=== PATIENT | male | born 1945 | race Caucasian/White ===

== ENCOUNTER → 2020-11-26 13:45 | Outpatient (BNVA) | payer MEDICARE, SELFPAY | PROVIDERS: PCP Family Medicine; Referring Provider Surgery; Visit Provider Surgery | DX: K64.9 Unspecified hemorrhoids (principal); Z20.822 Contact with and (suspected) exposure to COVID-19 | CPT/HCPCS: 87635; 99211 ==

== ENCOUNTER 2020-12-03 08:07 | Day surgery (SDC) | payer MEDICARE, SELFPAY ==
[2020-12-03 08:15] VITALS: BP 174/80; PULSE 58; RESP 18; TEMP 36.3; O2SAT 96
[2020-12-03 08:22] VITALS: BMI 26.4
[2020-12-03] MEDS: Fleet Enema 133 mL Enema PR (08:48)
[2020-12-03] MEDS: sodium chloride 0.9% 1,000 ML 30 ML IV (08:48)
--- NOTE | 2020-12-03 09:09 | ANES.PREANE2 ---
Pre-Anesthetic Assessment Pre-Anesthetic Assessment: Height/Weight: Height 1.85 m Weight 90.718 kg Temp Pulse Resp BP Pulse Ox 97.4 F L 58 L 18 174/80 96 12/03/20 08:15 12/03/20 08:15 12/03/20 08:15 12/03/20 08:15 12/03/20 08:15 Preop Diagnosis: Hemorrhoids Proposed Procedure: Operation Date: 12/03/20 08:40 Proposed Procedures p Exam Under Anesthesia 18167 [id number] k64.9 k62.9(Not Applicable) - Kayden Padilla MD s poss Hemorroidectomy(Not Applicable) - Kayden Padilla MD s poss excision of perianal lesion(Not Applicable) - Kayden Padilla MD Was Beta Radha taken within 24 hours: Yes Was Clonidine taken within 24 hours: N/A Last intake: Intake Last Liquid Date 12/02/20 Last Liquid Time 19:00 Last Solid Date 12/02/20 Last Solid Time 19:00 Social: Social History: No alcohol and No tobacco Exam: Pre-Anes Outpt Exam: alert, oriented x 3, clear to auscultation bilaterally and regular rate & rhythm Airway: Submandibular: WNL Cervical ROM: WNL MP: 2 Additional comments: upper permanent bridge CV/HEM: CV/HEM: HTN GI: GI: GERD Metabolic: Metabolic: DM Neuropsych: Neuropsych: LOCKE Comments: Very OHKAY OWINGEH Anesthetic Plan: ASA status: 3 Anesthesia: Choice Risk of > 500 ml blood loss (7ml/kg in children): No Meds/Allergies Current Medications: Current Medications Generic Name Dose Route Start Last Admin Trade Name Freq PRN Reason Stop Dose Admin Sodium Chloride 1,000 mls @ 30 ml s/hr 12/03/20 08:15 12/03/20 08:48 Sodium Chloride 0.9% IV 12/04/20 08:14 30 mls/hr .Q24H COLLIN Administration PFSH Anesthesia PFSH: Medical History Acquired deafness of both ears Chronic headache GERD (gastroesophageal reflux disease) History of stroke Hypertension Type 2 diabetes mellitus Surgical History (Updated 11/24/20 @ 16:23 by Kayden Padilla MD) H/O umbilical hernia repair History of cholecystectomy History of colonoscopy <10 yrs History of knee surgery left (x4) History of tonsillectomy Family History Brother Cancer Skin Cancer Social History Smoking and tobacco status: never smoked Alcohol intake: never Data Anesthesia Cardiac Studies: No Data to Display
[2020-12-03] MEDS: lidocaine 1% INJ 20 mL INJECTION (10:03)
[2020-12-03 10:15] VITALS: BP 144/69; PULSE 62; RESP 12; TEMP 36.3; O2SAT 99
[2020-12-03 10:20] VITALS: BP 149/77; PULSE 60; RESP 18; O2SAT 99
[2020-12-03 10:25] VITALS: BP 150/83; PULSE 63; RESP 17; TEMP 36.5; O2SAT 95
[2020-12-03 10:31] VITALS: BP 169/80; PULSE 63; RESP 18; O2SAT 94
[2020-12-03 10:57] VITALS: BP 170/77; PULSE 59; RESP 18; O2SAT 92
--- NOTE | 2020-12-03 14:38 | ANE.PACU2 ---
Inpatient post-anesthesia follow up: Airway intact: Yes Vital signs: Temperature 97.7 F Pulse Rate 59 Respiratory Rate 18 Blood Pressure 170/77 Pulse Oximetry 92 Oxygen Delivery Me thod Room Air Oxygen Flow Rate 8 Fraction of Inspir ed Oxygen Hydration adequate: Yes Nausea and vomiting: No Pain level: 1 Mental status: Baseline
== END 2020-12-03 11:35 | disposition home or self-care (01) ==
PROVIDERS: PCP Family Medicine; Visit Provider Surgery
PROC: (CPT 46221; principal; 2020-12-03 08:30)
PROC: (CPT 46221; 2020-12-03 08:30)
PROC: (CPT 46221; 2020-12-03 08:30)
DX: B07.8 Other viral warts (principal); K64.0 First degree hemorrhoids; I10 Essential (primary) hypertension; K21.9 Gastro-esophageal reflux disease without esophagitis; E11.9 Type 2 diabetes mellitus without complications; Z86.73 Personal history of transient ischemic attack (TIA), and cerebral infarction without residual deficits
CPT/HCPCS: 46221; 46922; 88304; J0690; J2704; J3490; J7030

== ENCOUNTER → 2021-03-03 18:00 | Outpatient (BNVA) | payer MEDICARE, SELFPAY | PROVIDERS: PCP Family Medicine; Visit Provider Nurse Practitioner Family | DX: G44.229 Chronic tension-type headache, not intractable; H91.93 Unspecified hearing loss, bilateral; I10 Essential (primary) hypertension; K21.9 Gastro-esophageal reflux disease without esophagitis; E11.65 Type 2 diabetes mellitus with hyperglycemia; Z72.0 Tobacco use; R10.9 Unspecified abdominal pain; G89.29 Other chronic pain | CPT/HCPCS: 80053; 80061; 83036; 83690; 85025 ==

== ENCOUNTER → 2021-07-16 09:18 | Outpatient (BNVA) | payer MEDICARE, SELFPAY | PROVIDERS: PCP Family Medicine; Visit Provider Emergency Medicine | DX: I10 Essential (primary) hypertension (principal); R63.4 Abnormal weight loss; E78.5 Hyperlipidemia, unspecified; E11.9 Type 2 diabetes mellitus without complications; N40.1 Benign prostatic hyperplasia with lower urinary tract symptoms; M51.34 Other intervertebral disc degeneration, thoracic region; M40.294 Other kyphosis, thoracic region | CPT/HCPCS: 71046; 72072; 80053; 80061; 82378; 83036; 84443; 85025; 86301; G0103 ==

== ENCOUNTER 2021-07-26 11:45 | Emergency (ER) | payer MEDICARE, SELFPAY ==
[2021-07-26] VITALS (8 sets, daily range): BP systolic 161–235; BP diastolic 82–113; PULSE 61–74; RESP 16–29; TEMP 36.7; O2SAT 90–98; BMI 26.3
--- NOTE | 2021-07-26 12:23 | XR_ITS ---
WS: [id number] Exam: XR chest 1V portable [id number] Date/Time of Exam: 07/26/2021 12:56 PM Reason For Exam: dyspnea/cough Comparison 07/16/2021. The lungs are fully inflated and clear. Normal cardiomediastinal silhouette. Regional bony elements a re intact. Monitoring leads superimpose the chest. XR/XR chest 1V portable [id number] IMPRESSION: 1. No acute cardiopulmonary process identified.
--- NOTE | 2021-07-26 12:23 | ED_ITS ---
HPI - General Adult General: Chief complaint: General Medical Stated complaint: high bp, back pain Time Seen by Provider: 07/26/21 12:19 Source: patient Mode of arrival: ambulatory History of Present Illness: 76-year-old male presents to the emergency room from his primary care doctor's office there is a concern about dissecting thoracic aneurysm. He has had pain in his back radiating over to his right side for over a month. He is not previously been known to have aneurysm. He has not noticed anything that makes it better or worse he denies any dysuria urgency or frequency. No fever sweats chills cough cold shortness of breath. Patient has intermittent back pain radiating into his right flank. Onset (ago): month(s) Location: chest Radiation: back Severity: severe Quality: sharp Pain Consistency: intermittent Relieving factors: none Exacerbating factors: none Associated symptoms: Reports chest pain; Deny confusion, cough, diaphoresis, decreased appetite, dyspnea, fevers/chills, headache(s), malaise, nausea, rash, palpitations, seizures, short of breath, syn cope, vomiting or weakness Treatments prior to arrival: none Review of Systems Const: Denies: malaise or diaphoresis ENMT: Denies: throat pain, ear or mastoid pain, nasal discharge or nasal congestion Card: Reports: chest pain; Denies: palpitations or syncope Resp: Denies: dyspnea GI: Denies: nausea or vomiting : Denies: flank pain, dysuria, urinary frequency or urinary urgency Skin/Breast: Denies: rash Neuro: Denies: headache(s) or confusion [facility] ED PFSH: Medical History Acquired deafness of both ears Acute thoracic back pain BPH loc w urin obs/LUTS Chronic headache Dyslipidemia GERD (gastroesophageal reflux disease) History of stroke Hypertension Type 2 diabetes mellitus Weight loss, non-intentional Surgical History H/O umbilical hernia repair History of cholecystectomy History of colonoscopy <10 yrs History of knee surgery left (x4) History of tonsillectomy Family History Brother Cancer Skin Cancer Social History (Reviewed 07/27/21 @ 06:36 by ANH Berrios Smoking and tobacco status: never smoked Alcohol intake: never Physical Exam Const: GENERAL APPEARANCE: cooperative and comfortable ORIENTATION/CONSCIOUSNESS: Yes awake, Yes oriented to person, Yes oriented to place and Yes oriented to time HENMT: COMMON NORMALS: normocephalic, atraumatic and hearing grossly normal bilaterally HEAD & SCALP: normocephalic and atraumatic Neck/C-Spine: COMMON NORMALS: no JVD Resp: COMMON NORMALS: normal respiratory effort, No retractions, No use of accessory muscles and clear to auscultation bilaterally AUSCULTATION: clear to auscultation bilaterally Cardio: COMMON NORMALS: no JVD, regular rate, regular rhythm and No murmurs present (Cardio) RATE: regular rate RHYTHM: regular rhythm GI: COMMON NORMALS: Soft to palpation and No hepatosplenomegaly present AUSCULTATION: Yes normoactive bowel sounds PALPATION: Yes Soft to palpation, No Tenderness to palpation present (GI), No Guarding due to palpation present ( GI) and Yes No hepatosplenomegaly present Extremity: COMMON NORMALS: normal to inspection, capillary refill normal, no clubbing, cyanosis or edema, no calf tenderness and no pedal edema Neuro: SENSORIUM/ORIENTATION: Yes oriented to person, Yes oriented to place and Yes oriented to time Skin: COMMON NORMALS: no rashes or lesions noted GENERAL SKIN EXAM: no rashes or lesions noted Course Vital Signs: Vital signs: Vital Signs Temperature 98.0 F 07/26/21 12:07 Pulse Rate 66 07/26/21 16:01 Respiratory Rate 16 07/26/21 15:30 Blood Pressure 175/84 07/26/21 16:01 Pulse Oximetry 90 07/26/21 16:01 [facility] - General Adult Medical Decision Making No dissecting aneurysm on imaging. There is no sign of compression fracture or bony abnormality either. Pain is improved after pain medications discussed with his primary care. Dr. Martin will be sending in pain medication for the patient we will discharge him home follow-up for further outpatient work-up. Also noted he has some significant accelerated hypertension is improved with treatment given here we will increase his lisinopril to 10 mg twice daily and he needs to recheck with his primary care doctor tomorrow continue all his other medications. Were also going to have case management [facility] Lab Data : 07/26/21 13:27 07/26/21 13:27 Radiology Impressions Chest X-Ray 07/26/21 12:23 IMPRESSION: 1. No acute cardiopulmonary process identified. Chest CTA 07/26/21 13:22 IMPRESSION: 1. No thoracic aortic aneurysm or dissection. 2. Atherosclerotic changes throughout the thoracic aorta. 3. No pneumonia. 4. Status post cholecystectomy and pneumobilia. Laboratory Results WBC 7.2 10^3/uL (4.0-10.0) 07/26/21 13:27 RBC 3.85 10^6/uL (4.1-5.3) L 07/26/21 13:27 Hgb 10.9 g/dL (11.7-16.6) L 07/26/21 13:27 Hct 33.6 % (42.0-52.0) L 07/26/21 13:27 MCV 87.3 fl (80-94) 07/26/21 13:27 MCH 28.3 pg (28.0-34.0) 07/26/21 13:27 MCHC 32.4 g/dL (30.0-36.0) 07/26/21 13:27 RDW 13.2 % (12.1-15.1) 07/26/21 13:27 Plt Count 169 10^3/cmm (130-400) 07/26/21 13:27 MPV 10.0 fL (7.4-10.4) 07/26/21 13:27 Neut % (Auto) 58.2 % 07/26/21 13:27 Lymph % (Auto) 28.2 % 07/26/21 13:27 [place] % (Auto) 7.9 % 07/26/21 13:27 Eos % (Auto) 5.0 % 07/26/21 13:27 Baso % (Auto) 0.4 % 07/26/21 13:27 Neut # (Auto) 4.17 10^3/uL (1.8-7.7) 07/26/21 13:27 Lymph # (Auto) 2.0 10^3/uL (0.8-4.8) 07/26/21 13:27 [place] # (Auto) 0.6 10^3/uL (0.2-0.9) 07/26/21 13:27 Eos # (Auto) 0.4 10^3/uL (0.0-0.8) 07/26/21 13:27 Baso # (Auto) 0.0 10^3/uL (0.0-0.1) 07/26/21 13:27 Nucleated RBC % (auto) 0 % 07/26/21 13:27 Nucleated RBCs # 0.0 /100WBC 07/26/21 13:27 Sodium 140 mmol/L (136-145) 07/26/21 13:27 Potassium 4.6 mmol/L (3.5-5.1) 07/26/21 13:27 Chloride 107 mmol/L (98-107) 07/26/21 13:27 Carbon Dioxide 22 mmol/L (22-29) 07/26/21 13:27 Anion Gap 15.6 (5-19) 07/26/21 13:27 BUN 26 mg/dL (8-23) H 07/26/21 13:27 Creatinine 1.5 mg/dL (0.7-1.2) H 07/26/21 13:27 GFR Calculation Not Reportable 07/26/21 13:27 Glucose 87 mg/dL (65-115) 07/26/21 13:27 Calculated Osmolality 294 mOsm/kg (285-295) 07/26/21 13:27 Calcium 8.9 mg/dL (8.5-10.5) 07/26/21 13:27 Total Bilirubin 0.2 mg/dL (0.15-1.2) 07/26/21 13:27 AST 8 U/L (0-40) 07/26/21 13:27 ALT < 5 U/L (0-41) 07/26/21 13:27 Alkaline Phosphatase 57 IU/L (40-130) 07/26/21 13:27 Troponin T Baseline 21 ng/L (0-15) H 07/26/21 13:27 Troponin T 120 Minute 18.22 ng/L (0-15) H 07/26/21 16:08 Delta Troponin T -2.78 ABS# (0-10) L 07/26/21 16:08 Total Protein 5.8 g/dL (6.6-8.7) L 07/26/21 13:27 Albumin 3.9 g/dL (3.5-5.2) 07/26/21 13:27 Globulin 1.9 g/dL (1.3-4.6) 07/26/21 13:27 Discharge Plan Discharge Patient Disposition: Home Clinical Impression: Atypical chest pain, Hypertension Condition: Stable Prescriptions: New lisinopril 10 mg tablet 10 mg PO BID Qty: 60 0RF Discontinued lisinopril 5 mg tablet 5 mg PO DAILY 90 Days Qty: 90 1RF No Action omega-3 fatty acids [Fish Oil Concentrate] 1,000 mg capsule 1,000 mg PO DAILY 0RF amitriptyline 50 mg tablet 100 mg PO DAILY 90 Days Qty: 180 1RF metformin 1,000 mg tablet 1,000 mg PO BID 90 Days Qty: 180 1RF multivitamin Tablet 1 tab PO DAILY 0RF CoQ-10 100 mg Capsule 100 mg PO DAILY 0RF lysine 1 cap PO DAILY 0RF methocarbamol 500 mg tablet 500 mg PO TID 0RF omeprazole 40 mg capsule,delayed release(DR/EC) 40 mg PO DAILY 0RF amlodipine 10 mg tablet 10 mg PO DAILY 0RF atenolol 50 mg tablet 50 mg PO BID 0RF Discharge Orders: Discharge ED (Routine); Ordered 07/26/21 Ordered By: Wellington Martines Referrals: Ina Martin MD [Primary Care Provider] - Discharge Diet: Usual diet Discharge Activity: Limit activity as instructed Patient Instructions: Opioid Safety Activity Restrictions/Additional Instructions: This management make arrangements for you to have a Lexiscan sestamibi stress test follow-up with your primary care doctor within the week to recheck blood pressure Coding Level of Care Code ED Associate Designer for Chg Fwd Exam Comprehensive
--- NOTE | 2021-07-26 12:53 | PC.PHAR ---
pts family verified the pts medications-notes are made in the pharmacy comments
[2021-07-26] MEDS: hyDRALAzine 20 mg/mL INJ 1 mL IVP (13:09)
[2021-07-26] MEDS: lisinopril 20 mg Tablet PO (13:09)
--- NOTE | 2021-07-26 13:22 | CT_ITS ---
WS: [id number] CTA THORACIC AORTA WITH AND WITHOUT CONTRAST. HISTORY: Back pain, possible thoracic aneurysm. TECHNIQUE: CT imaging of the thorax is performed with and without contrast. After noncontrast imaging is performed, CT angiogram is performed during injection of Omnipaque 300; 95 mL IV.. Sagittal and c oronal reconstructions, sagittal and coronal MIP imaging is submitted. All CT scans at [facility] use at least one of these dose optimization techniques: automated exposure control; mA and/or kV adjustment per patient size (includes targeted exams where dose is matched to clinical indication); or iterative reconstruction. DLP: 2241.64 mGy.cm COMPARISON: None available. Moderate atherosclerotic changes within the thoracic aorta. Maximum diameter of the ascending aorta i s 3.9 cm. Descending aorta is 3.1 cm at the level of the arnold. There are scattered calcification th roughout the thoracic aorta and involving the proximal great vessels. No dissection or aneurysm. Pulm onary artery size is normal. No central filling defects. Heart is slightly enlarged. No pericardial o r pleural effusions. Mild dependent changes at the lung bases with motion artifact. Indeterminate 3 m m nodule central RIGHT lung. No mass. No mediastinal or hilar adenopathy. Negative esophagus. Small h iatal hernia. Pneumobilia is evident. Prior cholecystectomy. There is a small amount of air also present within the pancreatic duct. Incompletely visualized kidneys. Small cyst upper pole RIGHT kidney. Nonobstructing 6 mm calcification upper pole RIGHT kidney. Cortical thinning bilaterally. No free air. Increase in thoracic kyphosis. Advanced degenerative changes throughout the thoracic spine. No osteob lastic or osteolytic bone disease. CT/CT angio chest [id number] IMPRESSION: 1. No thoracic aortic aneurysm or dissection. 2. Atherosclerotic changes throughout the thoracic aorta. 3. No pneumonia. 4. Status post cholecystectomy and pneumobilia.
[2021-07-26 13:33] LABS: Basophils % 0.4 %; Eosinophils # 0.4 10^3/uL (0.0-0.8); Hematocrit 33.6 % (42.0-52.0); Hemoglobin 10.9 g/dL (11.7-16.6); Lymphocytes % 28.2 %; Mean Corpuscular HGB Conc 32.4 g/dL (30.0-36.0); Mean Corpuscular Hemoglobin 28.3 pg (28.0-34.0); Mean Corpuscular Volume 87.3 fl (80-94); Monocytes # 0.6 10^3/uL (0.2-0.9); Monocytes % 7.9 %; Neutrophils # 4.17 10^3/uL (1.8-7.7); Neutrophils % 58.2 %; Nucleated Red Blood Cells % 0 %; Platelet Count 169 10^3/cmm (130-400); Red Blood Count 3.85 10^6/uL (4.1-5.3); Red Cell Distribution Width 13.2 % (12.1-15.1); White Blood Count 7.2 10^3/uL (4.0-10.0)
[2021-07-26] MEDS: LORazepam 2 mg Tablet PO (13:40)
--- NOTE | 2021-07-26 13:43 | PC.NURSE ---
PATIENT BECAME TACHYPNEIC WITH RESPIRATIONS AROUND 50. PROVIDER NOTIFIED. PATIENT GIVEN 2 MG PO ATIVAN.
[2021-07-26] MEDS: morphine 4 mg/mL SDV 1 mL IVP (13:54)
[2021-07-26 13:57] LABS: Alanine Aminotransferase < 5 U/L (0-41); Albumin Level 3.9 g/dL (3.5-5.2); Alkaline Phosphatase 57 IU/L (40-130); Anion Gap 15.6 (5-19); Aspartate Amino Transferase 8 U/L (0-40); Blood Urea Nitrogen 26 mg/dL (8-23); Calcium 8.9 mg/dL (8.5-10.5); Carbon Dioxide 22 mmol/L (22-29); Chloride 107 mmol/L (98-107); Globulin 1.9 g/dL (1.3-4.6); Glucose 87 mg/dL (65-115); Osmolality Calculated 294 mOsm/kg (285-295); Potassium 4.6 mmol/L (3.5-5.1); Sodium 140 mmol/L (136-145); Total Bilirubin 0.2 mg/dL (0.15-1.2); Total Protein 5.8 g/dL (6.6-8.7)
[2021-07-26] MEDS: ondansetron 2 mg/ML SDV 2 mL 4 MG IVP (13:57)
[2021-07-26 13:58] LABS: Troponin(5th) Baseline 21 ng/L (0-15)
--- NOTE | 2021-07-26 14:23 | ECG_ITS ---
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 Measurements Intervals [place] Rate: 70 P: 80 IA: 198 QRS: 89 QRSD: 111 T: 42 QT: 416 QTc: 450 Interpretive Statements SINUS RHYTHM POSSIBLE INFERIOR MYOCARDIAL INFARCTION , PROBABLY OLD [30 ms Q WAVE IN II/aVF] Compared to ECG 07/26/2021 12:44:17 No significant changes Electronically Signed On 07-26-2021 22:21:15 PULLEY WORKER by Abram Stewart M.D. [id number]
[2021-07-26] MEDS: iodixanol 320 mg/mL 100mL Btl IV (14:51)
[2021-07-26 16:32] LABS: Troponin 5 2HR 18.22 ng/L (0-15)
[2021-07-26 16:36] LABS: Troponin 5 2HR Delta -2.78 ABS# (0-10)
--- NOTE | 2021-07-26 18:23 | ECG_ITS ---
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 Measurements Intervals [place] Rate: 65 P: 65 [place]: 189 QRS: 95 QRSD: 122 T: 54 QT: 425 QTc: 443 Interpretive Statements SINUS RHYTHM BORDERLINE RIGHT AXIS DEVIATION [QRS AXIS > 90] LATERAL MYOCARDIAL INFARCTION , PROBABLY OLD [40+ ms Q WAVE AND/OR ST/T ABNORMALITY IN I/aVL/V5/V6] No previous ECG available for comparison Electronically Signed On 07-26-2021 22:21:50 NUCLEAR DESIGN ENGINEER by Abarm Stewart M.D. [id number]
--- NOTE | 2021-07-27 10:10 | DCPLANNER ---
Addendum entered by Love Multani 09/23/21 07:42: Patent had a stress test scheduled for 09.17.21 - this has been rescheduled. Addendum entered by Love Multani 08/27/21 14:16: Patient has an outpatient stress test scheduled for Friday, September 17, 2021 at 9:15. Centralized scheduling will call patient with appointment information. Original Note: manager employee benefits had message to schedule an outpatient stress test for patient. manager employee benefits faxed signed order to centralized scheduling, who will call patient with appointment information.
== END 2021-07-26 16:52 | disposition home or self-care (01) ==
PROVIDERS: Emergency Provider Family Medicine; PCP Family Medicine
DX: R07.89 Other chest pain (principal); I10 Essential (primary) hypertension; Z79.84 Long term (current) use of oral hypoglycemic drugs; E78.5 Hyperlipidemia, unspecified; Z86.73 Personal history of transient ischemic attack (TIA), and cerebral infarction without residual deficits; E11.9 Type 2 diabetes mellitus without complications
CPT/HCPCS: 36415; 71045; 71275; 80053; 84484; 85025; 93005; 96374; 96375; 99284; J0360; J2270; J2405; Q9967

== ENCOUNTER 2023-07-06 01:28 | Inpatient (IN) | payer MEDICARE, SELFPAY ==
[2023-07-06] VITALS (49 sets, daily range): BP systolic 108–200; BP diastolic 61–113; PULSE 30–114; RESP 0–27; TEMP 36.4–36.6; O2SAT 84–99; BMI 26.4; BMI 25.3
--- NOTE | 2023-07-06 01:41 | W.ED.GENADLT ---
HPI - General Adult General: Chief complaint: Syncope Stated complaint: bradycardia Time Seen by Provider: 07/06/23 01:38 History of Present Illness: Patient brought to ER by EMS with complaints of bradycardia down in the 30s with significant 3 and 4-second pauses frequently. Talking to patient's he has been having these off and on for some time but having them multiple times today. Per patient's he does not have any cardiac history at all. He has had an old stroke and does have dementia. Patient is being paced at 80 bpm and 80 mA. EMS gave him 5 mg of Versed. And 1 mg atropine Review of Systems General: Reports: ROS unobtainable due to medical condition PFSH ED PFSH: Medical History Acute thoracic back pain Dyslipidemia BPH loc w urin obs/LUTS Weight loss, non-intentional Acquired deafness of both ears History of stroke GERD (gastroesophageal reflux disease) Chronic headache Type 2 diabetes mellitus Hypertension Surgical History History of colonoscopy <10 yrs History of knee surgery left (x4) History of tonsillectomy H/O umbilical hernia repair History of cholecystectomy Family History Brother Cancer Skin Cancer Social History Smoking and tobacco/nicotine status: never used tobacco/nicotine Alcohol intake: never Substance/Drug Use: never Physical Exam Narrative: EXAM NARRATIVE: Patient is sedated secondary to Versed. Eye: COMMON NORMALS: Equal, round and reactive pupils present, EOMs intact bilaterally, conjunctivae normal and no scleral icterus CONJUNCTIVA: Yes conjunctivae normal PUPIL: Yes Equal, round and reactive pupils present Neck/C-Spine: COMMON NORMALS: no JVD Chest: COMMONS NORMALS: normal inspection of the chest and normal palpation of entire chest wall Resp: COMMON NORMALS: normal respiratory effort, No retractions, No use of accessory muscles and clear to auscultation bilaterally AUSCULTATION: clear to auscultation bilaterally Cardio: COMMON NORMALS: no JVD, regular rate, regular rhythm, S1 normal heart sound present, S2 normal heart sound present, No gallops present (Cardio), No murmurs present (Cardio) and No rub (Cardio) RATE: regular rate RHYTHM: regular rhythm HEART SOUNDS: S1 normal heart sound present and S2 normal heart sound present OTHER: Being externally paced at 80 bpm GI: COMMON NORMALS: Normal to inspection, nondistended, normoactive bowel sounds present, Soft to palpation, non-tender, No hepatosplenomegaly present and no masses PALPATION: Yes Soft to palpation and Yes No hepatosplenomegaly present Course Vital Signs: Vital signs: Vital Signs Temperature 97.5 F L 07/06/23 01:29 Pulse Rate 80 07/06/23 02:50 Respiratory Rate 2 L 07/06/23 02:30 Blood Pressure 145/63 07/06/23 02:50 Pulse Oximetry 98 07/06/23 02:50 Oxygen Delivery Me thod Nasal Cannula 07/06/23 01:46 Oxygen Flow Rate 4 07/06/23 01:46 MDM - General Adult Medical Decision Making Patient was brought in being paced at 80 beats a minute. Lab work was obtained which is pending. Dr. Kerr was consulted. EKG was obtained while patient was not being paced. Patient did drop all way down to the 30s, EKG caught the patient at 54 beats a minute with sinus bradycardia with a second-degree type II Mobitz block. Dr. Kerr was called again and said patient needs pacemaker and he will call the Data Support Analyst. Dr. Ward was consulted and agreed to place the patient in ICU after Dr. Kerr was done. Differential Diagnosis Significant bradycardia with pauses Medical Records I reviewed the patient's medical records. Lab Data I reviewed the patient's lab results. 07/06/23 01:47 07/06/23 01:47 Laboratory Results WBC 8.48 10^3/uL (3.29-11.43) 07/06/23 01:47 RBC 3.59 10^6/uL (3.85-5.65) L 07/06/23 01:47 Hgb 11.10 g/dL (11.27-16.99) L 07/06/23 01:47 Hct 33.7 % (37-53) L 07/06/23 01:47 MCV 93.9 fl (82-101) 07/06/23 01:47 MCH 30.9 pg (27-33) 07/06/23 01:47 MCHC 32.9 g/dL (30-55) 07/06/23 01:47 RDW 13.5 % (12.1-15.1) 07/06/23 01:47 Plt Count 145 10^3/cmm (157-399) L 07/06/23 01:47 MPV 10.0 fL (7.4-10.4) 07/06/23 01:47 Neut % (Auto) 75.4 % 07/06/23 01:47 Lymph % (Auto) 14.2 % 07/06/23 01:47 [place] % (Auto) 5.8 % 07/06/23 01:47 Eos % (Auto) 3.7 % 07/06/23 01:47 Baso % (Auto) 0.4 % 07/06/23 01:47 Neut # (Auto) 6.41 10^3/uL (1.8-7.7) 07/06/23 01:47 Lymph # (Auto) 1.2 10^3/uL (0.8-4.8) 07/06/23 01:47 [place] # (Auto) 0.5 10^3/uL (0.2-0.9) 07/06/23 01:47 Eos # (Auto) 0.3 10^3/uL (0.0-0.8) 07/06/23 01:47 Baso # (Auto) 0.0 10^3/uL (0.0-0.1) 07/06/23 01:47 Nucleated RBC % (auto) 0 % 07/06/23 01:47 Nucleated RBCs # 0.0 /100WBC 07/06/23 01:47 PT 14.70 SECONDS (12.1-14.9) 07/06/23 01:47 INR 1.11 (0.8-1.2) 07/06/23 01:47 Sodium 143 mmol/L (136-145) 07/06/23 01:47 Potassium 4.6 mmol/L (3.5-5.1) 07/06/23 01:47 Chloride 108 mmol/L (98-107) H 07/06/23 01:47 Carbon Dioxide 22 mmol/L (22-29) 07/06/23 01:47 Anion Gap 17.6 (5-19) 07/06/23 01:47 BUN 37 mg/dL (8-23) H 07/06/23 01:47 Creatinine 2.0 mg/dL (0.7-1.2) H 07/06/23 01:47 GFR Calculation Not Reportable 07/06/23 01:47 Glucose 130 mg/dL (65-115) H 07/06/23 01:47 Calculated Osmolality 306 mOsm/kg (285-295) H 07/06/23 01:47 Calcium 9.0 mg/dL (8.5-10.5) 07/06/23 01:47 Magnesium 1.7 mg/dL (1.7-2.3) 07/06/23 01:47 Total Bilirubin 0.2 mg/dL (0.15-1.2) 07/06/23 01:47 AST 12 U/L (0-40) 07/06/23 01:47 ALT 8 U/L (0-41) 07/06/23 01:47 Alkaline Phosphatase 60 U/L (40-130) 07/06/23 01:47 Troponin T Baseline 32 ng/L (0-15) H 07/06/23 01:47 Total Protein 5.8 g/dL (6.6-8.7) L 07/06/23 01:47 Albumin 3.7 g/dL (3.5-5.2) 07/06/23 01:47 Globulin 2.1 g/dL (1.3-4.6) 07/06/23 01:47 TSH 4.10 uIU/mL (0.27-4.20) 07/06/23 01:47 All radiology interpretation(s) finalized by discharge EKG Data EKG 1: I personally reviewed and interpreted this EKG as follows: EKG interpretation date: 07/06/23 EKG interpretation time: 01:49 Prior EKG tracings: available for review Interpretation: EKG showed ventricular rate 54 beats minute, QRS duration 114, QTc of 412, sinus bradycardia with second-degree AV block type II, Critical Care Time Critical Care Time: Critical Care Time: Yes Total Critical Care Time: 60 Attestation: The patient was emergently evaluated this patient's presentation and case had a high probability of a clinically significant, sudden, or life-threatening deterioration of the patient's initial critical presentation or condition which required my full and direct attention, intervention and personal management. Discharge Plan Discharge Patient Disposition: Admitted As Inpatient Clinical Impression: Mobitz type II block Syncope Qualifiers: Syncope type: unspecified Qualified Code(s): R55 - Syncope and collapse Condition: Stable Coding Level of Care Code ED Database Administrator for Shayne Cowart
[2023-07-06] MEDS: fentaNYL 50 mcg/mL INJ 2mL 100 MCG IVP (01:43)
[2023-07-06] MEDS: midazolam 1 mg/mL INJ 2 mL 2 MG IVP (01:45)
[2023-07-06 01:51] LABS: Basophils % 0.4 %; Eosinophils # 0.3 10^3/uL (0.0-0.8); Eosinophils % 3.7 %; Hematocrit 33.7 % (37-53); Lymphocytes # 1.2 10^3/uL (0.8-4.8); Lymphocytes % 14.2 %; Mean Corpuscular HGB Conc 32.9 g/dL (30-55); Mean Corpuscular Hemoglobin 30.9 pg (27-33); Mean Corpuscular Volume 93.9 fl (82-101); Monocytes # 0.5 10^3/uL (0.2-0.9); Monocytes % 5.8 %; Neutrophils # 6.41 10^3/uL (1.8-7.7); Neutrophils % 75.4 %; Nucleated Red Blood Cells % 0 %; Platelet Count 145 10^3/cmm (157-399); Red Blood Count 3.59 10^6/uL (3.85-5.65); Red Cell Distribution Width 13.5 % (12.1-15.1); White Blood Count 8.48 10^3/uL (3.29-11.43)
[2023-07-06 02:02] LABS: INR 1.11 (0.8-1.2)
[2023-07-06 02:11] LABS: Alanine Aminotransferase 8 U/L (0-41); Albumin Level 3.7 g/dL (3.5-5.2); Alkaline Phosphatase 60 U/L (40-130); Anion Gap 17.6 (5-19); Aspartate Amino Transferase 12 U/L (0-40); Blood Urea Nitrogen 37 mg/dL (8-23); Carbon Dioxide 22 mmol/L (22-29); Chloride 108 mmol/L (98-107); Globulin 2.1 g/dL (1.3-4.6); Glucose 130 mg/dL (65-115); Magnesium 1.7 mg/dL (1.7-2.3); Osmolality Calculated 306 mOsm/kg (285-295); Potassium 4.6 mmol/L (3.5-5.1); Sodium 143 mmol/L (136-145); Total Bilirubin 0.2 mg/dL (0.15-1.2); Total Protein 5.8 g/dL (6.6-8.7)
[2023-07-06 02:15] LABS: Troponin(5th) Baseline 32 ng/L (0-15)
--- NOTE | 2023-07-06 02:29 | XACV_ITS ---
Exam Room: 2 Ht: 183 cm Wt: 88 kg BSA: 2.13 m2 Gender: Male : 1945 Any Known Allergies: No known allergies Exam Priority: Routine Procedure(s): Procedure Description: Temporary transvenous pacemaker Interventional Findings * INDICATION: 78 year old male with no significant prior cardiac history, history of hypertension and diabetes has presented with multiple episodes of passing out today was found to have a heart rate in 30s with Mobitz type II AV block. * We obtained access in right common femoral vein using micropuncture. Under fluoroscopic guidance pacemaker was inserted and sutured in place. We started pacing at 60 bpm and output of 4 mA. 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 Conclusions 1. S/p successful transvenous pacemaker. Recommendations * Transfer from ICU. Plan for permanent pacemaker placement. Clinical Evaluation EBL: 5mL-10mL Procedural Details Procedure Consent Obtained. Pre-Procedure Time Out. Identified patient by full name and date of as verbalized by the patient/guarantor. Does the consent match the physician's order: N/A Emergent; Informed Consent not obtained due to time critical life threat. Accurate & Complete Informed Consent: N/A Emergent; Informed Consent not obtained due to time critical life threat. Inpatient/Outpatient History & Physical on Chart: N/A Emergent; Informed Consent not obtained due to time critical life threat. If H&P is completed, is and addenduem needed: N/A Emergent; Informed Consent not obtained due to time critical life threat; If yes, is the addendum complete: N/A Emergent; Informed Consent not obtained due to time critical life threat. Visualize and Verify Site with Patient/Guarantor: N/A. Relevant Radiology Images available: N/A Emergent; Informed Consent not obtained due to time critical life threat. The risks, benefits, and alternatives of sedation and/or procedure were discussed by physician. The patient agrees to continue. Procedure started. Correct patient, site and procedure confirmed by cath team. Current diagnosis: Mobitz Type 2, multiple syncopal episodes. PERRLA. 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 Lungs clear x 5 lobes. IV Site on Arrival: 18 gauge in the left anticubital. Oxygen started at 2liters/min via nasal canula. bilateral groins was prepped with chloroprep then draped in the usual sterile fashion. Physician notified. Baseline sample Acquired. HR: 79 BPM. Patient being externally paced. EKG with artifact. Patient's family in the experimental machining lab manager waiting room. Dr. Stewart will update at the completion of the procedure. Equipment: 6F - Femoral. Cardiac Cath Pack. ACIST Manifold Kit Model BT 2000. Heparinized Saline (2 units/mL), 1000 mL bag. Kit, Micropuncture. Physician arrived. Physician scrubbed in. Immediate Pre-Procedure Time Out. Correct Patient: N/A Emergent; Informed Consent not obtained due to time critical life threat; Correct Procedure: N/A Emergent; Informed Consent not obtained due to time critical life threat; Correct Site: N/A Emergent; Informed Consent not obtained due to time critical life threat; Correct Patient Position: N/A Emergent; Informed Consent not obtained due to time critical life threat; Correct Supplies: N/A Emergent; Informed Consent not obtained due to time critical life threat; Dried Flammable Prep: N/A Emergent; Informed Consent not obtained due to time critical life threat; Blood Products Available: N/A Emergent; Informed Consent not obtained due to time critical life threat;. Lidocaine 1% infiltrated to the right groin. Venous access obtained with a micropuncture set. TPM in. External pacemaker off. Rate=60, mA=3, Async. TPM sutured into position with 2-0 silk and sterile 4x4's and Op-site applied over the site. No oozing or signs and symptoms of hematoma noted. Dr. Stewart scrubbed out. PERRLA. 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 No VTE prophylaxis required. Post-op diagnosis: S/P TPM for Mobitz Type 2 and multiple syncopal episodes. Complications: none. Estimated blood loss: 5mL-10mL. Responsiveness - Normal response to verbal stimuli; alert and oriented, PERRLA. Airway - Unaffected, no intervention required; spontaneous ventilation. Circulation: W/N/L, pulses unchanged. Nausea/Vomiting: No. Patient transferred by bed to ICU. Medication's Wasted: Lidocaine 1% = 5 mL. Procedure completed. Vital chart was stopped. Access Site Site: Right Femoral vein Sheath Size: 6 Fr Hemostasis Success: Unsuccessful I, the attending physician, have reviewed and verified all procedure medications. Yes, all medications given per verbal order Report Signatures Finalized by Abram Stewart MD on 07/17/2023 09:45 AM
--- NOTE | 2023-07-06 02:36 | PC.NURSE ---
pt nasopharyngeal airway insertion pt respirations were slowed d/t media marketing director so this nurse placed a 32 naso airway. pt did pull out naso prior to leaving for medical lab technologist at [id number].
--- NOTE | 2023-07-06 02:41 | P.CONIM_ITS ---
Providers/Reason For Consult 2 Consulting Physician/Specialty*: Abram Stewart MD/ Cardiology Reason for Consult*: Mobitz type 2 AV block Requesting Physician: Dr Contreras Attending Physician: Abram Stewart M.D Primary Care Provider: Kem Briggs DO History of Present Illness History of Present Illness Anant Byrne is a 78 year old male with no significant prior cardiac history, history of hypertension and diabetes has presented with multiple episodes of passing out today was found to have a heart rate in 30s with Mobitz type II AV block. Has been not transcutaneously placed at this time. Blood pressure is stable. He has dementia. Review of Systems 2 General: Reports: ROS unobtainable due to medical condition Medications/Allergies Home Medications Medication Instructions Recorded Confirmed Last Taken Type amitriptyline 50 mg tablet 100 mg (2 x 50 mg) PO DAILY 90 03/03/21 08/02/21 Unknown Rx days #180 tabs metformin 1,000 mg tablet 1,000 mg PO BID 90 days #180 tabs 03/03/21 08/02/21 07/26/21 Rx omega-3 fatty acids 1,000 mg 1,000 mg PO DAILY 07/15/21 08/02/21 Unknown History capsule (Fish Oil Concentrate) amlodipine 10 mg tablet 10 mg PO DAILY 07/26/21 08/02/21 07/26/21 History coenzyme Q10 100 mg capsule 100 mg PO DAILY 07/26/21 08/02/21 Unknown History (CoQ-10) lysine 1 cap PO DAILY 07/26/21 08/02/21 Unknown History multivitamin 1 tab PO DAILY 07/26/21 08/02/21 Unknown History omeprazole 40 mg capsule,delayed 40 mg PO DAILY 07/26/21 08/02/21 Unknown History release gabapentin 100 mg capsule 100 mg PO TID 30 days #90 caps 07/27/21 08/02/21 Unknown Rx hydrocodone 5 mg-acetaminophen 325 1 tab PO Q8H PRN pain 7 days #21 07/27/21 08/02/21 Unknown Rx mg tablet tabs DME: Walker #1 ea 08/02/21 08/02/21 Unknown Rx lisinopril 10 mg tablet 10 mg PO BID #60 tabs 08/30/21 Unknown Rx atenolol 50 mg tablet 50 mg PO BID #60 tabs 10/09/21 Unknown Rx Allergies Allergy/AdvReac Type Severity Reaction Status Date / Time No Known Allergies Allergy Verified 08/02/21 10:30 PFSH Acute 2 PFSH: Medical History Acute thoracic back pain Dyslipidemia BPH loc w urin obs/LUTS Weight loss, non-intentional Acquired deafness of both ears History of stroke GERD (gastroesophageal reflux disease) Chronic headache Type 2 diabetes mellitus Hypertension Surgical History History of colonoscopy <10 yrs History of knee surgery left (x4) History of tonsillectomy H/O umbilical hernia repair History of cholecystectomy Family History Brother Cancer Skin Cancer Social History Smoking and tobacco/nicotine status: never used tobacco/nicotine Alcohol intake: never Substance/Drug Use: never Vitals/I&O/Wt Last Vital Signs Temp 97.5 F L 07/06/23 01:29 Pulse 80 07/06/23 02:10 Resp 16 07/06/23 01:29 BP 132/70 07/06/23 02:10 Pulse Ox 96 07/06/23 02:10 O2 Del Method Nasal Cannula 07/06/23 01:46 O2 Flow Rate 4 07/06/23 01:46 Weight last 48 hrs Weight 195 lb Physical Exam 2 Narrative: GENERAL: Patient is confused NECK: No jugular vein distension. [] HEENT: No cyanosis. No icterus. No pallor. [] HEART: Regular S1 and S2. No murmur, rub or gallop. [] LUNGS: Diminished air entry CENTRAL NERVOUS SYSTEM: Grossly nonfocal. [] EXTREMITIES: Lower extremities with no edema bilaterally. Data 07/06/23 01:47 07/06/23 01:47 A&P Assessment and plan (1) Mobitz type II block: (2) Dyslipidemia: (3) Hypertension: (4) Type 2 diabetes mellitus: Qualifiers: Diabetes mellitus longterm insulin use: without longterm use Diabetes mellitus complication status: without complication Qualified Code(s): E11.9 - Type 2 diabetes mellitus without complications (5) Syncope: Qualifiers: Syncope type: unspecified Qualified Code(s): R55 - Syncope and collapse Plan Patient has Mobitz type II AV block. Has multiple episodes of fainting. Needs urgent temporary pacemaker placement. We will proceed with it now. Will need permanent pacemaker as well. Hold all rate limiting medications. ICU monitoring. Thank you for involving us with care of this patient. We will continue to follow. Please call with questions. Consult Attestations 2 Medical Necessity Statement: Care expected to cross 2 midnights. Patient has Mobitz type 2 AV block and needs pacemaker. Coding Level of Care Code Acute Code for [facility] Diagnoses Mobitz type II block I44.1 Dyslipidemia E78.5 Essential hypertension I10 Type 2 diabetes mellitus without complication, without long-term current use of insulin E11.9 Diabetes mellitus long term care administrator insulin use: without longterm use Diabetes mellitus complication status: without complication Syncope R55 Syncope type: unspecified
--- NOTE | 2023-07-06 02:46 | W.PM.OPSUD ---
Surgery/Procedure H&P Update DATE OF PROCEDURE: July 06, 2023 DATE H&P PERFORMED: 07/06/23 H&P UPDATE INFORMATION: I have reviewed H&P completed within last 30 days, I have examined patient prior to procedure and No changes to prior documentation PREOP DIAGNOSIS: Mobitz type 2 AV block/ Syncope PRIMARY INDICATION FOR PROCEDURE: Mobitz type 2 AV block/ Syncope PLANNED PROCEDURE: Temporary pacemaker placement PATIENT REASSESSED PRIOR TO SEDATION, WITH NO CHANGE NOTED: Yes PHYSICAL EXAM: alert, clear to auscultation bilaterally, regular rate & rhythm and operative site marked OTHER PERTINENT EXAM FINDINGS: Confused AIRWAY EVAL/ANESTHESIA PLAN: normal airway, ASA III, Local Anesthesia, Risks, benefits & alternatives of sedation and/or procedure discussed and Patient agrees to continue as planned ADDITIONAL INFORMATION: Moderate sedation
--- NOTE | 2023-07-06 03:06 | P.HP_ITS ---
Providers/Chief Complaint 2 Primary Care Provider: Kem Briggs DO Chief Complaint: bradycardia History of Present Illness Anant Byrne is a 78 year old male with no significant past cardiac history, history of dementia, history of BPH, history of CVA, GERD, type 2 diabetes mellitus, hypertension, who presented to [facility] due to syncope and collapse episodes, according to ER provider having episodes of syncope for some time, today, he had multiple episodes of syncope and collapse,, when EMS arrived, he was bradycardic into the 30s, found to have 3 to 4-second pauses, placed on externally paced 80 bpm 80 mA, ekg obtained while he was not being paid showed sinus bradycardia with Mobitz type II second-degree AV block, Dr. stewart was urgently consulted, for temporary pacemaker placement, patient was examined after temporary pacemaker placement, capturing, he is alert to person, not to place, not to time, encephalopathic, I was able to speak to patient's as per patient's , patient's tells me that patient has dementia, but he can ambulate on his own, he can feed himself, up to a few weeks ago he was driving, he has had some cognitive decline, but it has been stable for the last year, he has been having syncopal episodes for the last few months and refuses to get evaluated, but nothing like this she tells me, those syncopal episodes were intermittent lasting a few seconds, and the syncopal episodes he completely passes out and collapses, and they were occurring several times in the last 24 hours, no recent sickness no recent illness, I discussed CODE STATUS with patient's , patient is a full code Review of Systems 2 Const: Denies: fever(s) Card: Reports: syncope; Denies: chest pain Resp: Denies: dyspnea GI: Denies: abdominal pain Neuro: Reports: dizziness; Denies: headache(s) Medications/Allergies Home Medications Medication Instructions Recorded Confirmed Last Taken Type amitriptyline 50 mg tablet 100 mg (2 x 50 mg) PO DAILY 03/03/21 08/02/21 Unknown Rx days #180 tabs metformin 1,000 mg tablet 1,000 mg PO BID 90 days #180 tabs 03/03/21 08/02/21 07/26/21 Rx omega-3 fatty acids 1,000 mg 1,000 mg PO DAILY 07/15/21 08/02/21 Unknown History capsule (Fish Oil Concentrate) amlodipine 10 mg tablet 10 mg PO DAILY 07/26/21 08/02/21 07/26/21 History coenzyme Q10 100 mg capsule 100 mg PO DAILY 07/26/21 08/02/21 Unknown History (CoQ-10) lysine 1 cap PO DAILY 07/26/21 08/02/21 Unknown History multivitamin 1 tab PO DAILY 07/26/21 08/02/21 Unknown History omeprazole 40 mg capsule,delayed 40 mg PO DAILY 07/26/21 08/02/21 Unknown History release gabapentin 100 mg capsule 100 mg PO TID 30 days #90 caps 07/27/21 08/02/21 Unknown Rx hydrocodone 5 mg-acetaminophen 325 1 tab PO Q8H PRN pain 7 days #21 07/27/21 08/02/21 Unknown Rx mg tablet tabs DME: Walker #1 ea 08/02/21 08/02/21 Unknown Rx lisinopril 10 mg tablet 10 mg PO BID #60 tabs 08/30/21 Unknown Rx atenolol 50 mg tablet 50 mg PO BID #60 tabs 10/09/21 Unknown Rx Allergies Allergy/AdvReac Type Severity Reaction Status Date / Time No Known Allergies Allergy Verified 08/02/21 10:30 PFSH Acute 2 PFSH: Medical History Acute thoracic back pain Dyslipidemia BPH loc w urin obs/LUTS Weight loss, non-intentional Acquired deafness of both ears History of stroke GERD (gastroesophageal reflux disease) Chronic headache Type 2 diabetes mellitus Hypertension Surgical History History of colonoscopy <10 yrs History of knee surgery left (x4) History of tonsillectomy H/O umbilical hernia repair History of cholecystectomy Family History Brother Cancer Skin Cancer Social History Smoking and tobacco/nicotine status: never used tobacco/nicotine Alcohol intake: never Substance/Drug Use: never Vitals/I&O/Wt Last Vital Signs Temp 97.5 F L 07/06/23 01:29 Pulse 80 02/01/24 02:50 Resp 2 L 07/06/23 02:30 BP 145/63 07/06/23 02:50 Pulse Ox 98 07/06/23 02:50 O2 Del Method Nasal Cannula 07/06/23 01:46 O2 Flow Rate 4 07/06/23 01:46 Weight last 48 hrs Weight 88.451 kg Physical Exam 2 Const: COMMON NORMALS: no acute distress ORIENTATION/CONSCIOUSNESS: Yes awake, Yes oriented to person and Yes confused; not oriented to place and not oriented to time HENMT: COMMON NORMALS: normocephalic HEAD & SCALP: normocephalic Eye: COMMON NORMALS: Equal, round and reactive pupils present and EOMs intact bilaterally Neck/C-Spine: COMMON NORMALS: no JVD Lymph: LYMPHATIC: no lymphadenopathy noted Resp: COMMON NORMALS: normal respiratory effort, No retractions, No use of accessory muscles and clear to auscultation bilaterally AUSCULTATION: clear to auscultation bilaterally Cardio: COMMON NORMALS: regular rate, regular rhythm, S1 normal heart sound present and S2 normal heart sound present RATE: bradycardic RHYTHM: r egular rhythm HEART SOUNDS: S1 normal heart sound present and S2 normal heart sound present GI: COMMON NORMALS: Normal to inspection, nondistended, normoactive bowel sounds present, Soft to palpation and non-tender Extremity: COMMON NORMALS: no pedal edema Neuro: COMMON NORMALS: moves all extremities Psych: COMMON NORMALS: mental status grossly normal Data 07/06/23 01:47 07/06/23 01:47 A&P Assessment and plan (1) Mobitz type II block: (2) Hypertension: (3) Dyslipidemia: (4) Type 2 diabetes mellitus: Qualifiers: Diabetes mellitus group home insulin use: without group home use Diabetes mellitus complication status: without complication Qualified Code(s): E11.9 - Type 2 diabetes mellitus without complications (5) Syncope and collapse: (6) GERD (gastroesophageal reflux disease): Qualifiers: Esophagitis presence: without esophagitis Qualified Code(s): K21.9 - Gastro-esophageal reflux disease without esophagitis (7) Acute kidney injury superimposed on CKD: Plan Syncope and collapse -Secondary to Mobitz type II block -Externally paced by EMS -ER is consulted Dr. Stewart, for temporary pacing, temporary pacemaker placed -Likely need a permanent pacemaker, will need to consult Dr. Sherwood in the morning -Hold beta-nora -Serial EKGs, serial troponins, telemetry monitoring -Cardiac echo -Moved to ICU Type 2 diabetes mellitus, low-dose sliding scale TIN on CKD, IV fluids Syncope and collapse, patient's reports head trauma with his fall, will order CT of the head, I asked patient if anything hurts him, he denies this, but is a bit encephalopathic after his temporary pacemaker placement Acute encephalopathy -Likely secondary to syncope and collapse -Blood work, UA, CT head SCDs for DVT prophylaxis, Lovenox currently on hold as there is plans on pacemaker placement Full code as per patient's and my discussion of goals of care Attestations 2 Medical Necessity Statement*: Patient requires hospitalization, inpatient, greater than 2 midnights, for syncope, collapse, Mobitz type II heart block Coding Level of Care Code Critical Care >/= 30 minutes Critical care time (in minutes): 45 The high probability of a clinically significant, sudden or life threatening deterioration, as referenced in this documentation, required my full and direct attention, intervention and personal management. The critical care time shown is in addition to time spent performing any reported separately billable procedures and includes the following: [x] Data and vital sign review and interpretation [x ] Patient assessment, examination and intervention [x] Medication orders and management [x] Patient/Family updates as able [x] Care Coordination and Documentation. Diagnoses Mobitz type II block I44.1 Essential hypertension I10 Dyslipidemia E78.5 Type 2 diabetes mellitus without complication, without long-term current use of insulin E11.9 Diabetes mellitus ad terminal makeup operator insulin use: without ad terminal makeup operator use Diabetes mellitus complication status: without complication Syncope and collapse R55 Gastroesophageal reflux disease without esophagitis K21.9 Esophagitis presence: without esophagitis Acute kidney injury superimposed on CKD N17.9; N18.9
--- NOTE | 2023-07-06 03:27 | PC.NURSE ---
pacer was shut off while ekg was obtained to send to jackhammer operator.
--- NOTE | 2023-07-06 03:28 | USCV_ITS ---
Anant Byrne Age: 78 Gender: M : 1945 Exam Date: 07/06/2023 05:59 Ordering Phys: Chino Cai MD Technologist: DEVI [place] [facility] [place]: SYNCOPE BP: 129 / 71 HR: 59 Rhythm: Sinus Technical Quality: Adequate MEASUREMENTS (Male / Female) Normal Values 2D ECHO LVOT Diameter 2.0 cm LV Ejection Fraction MOD 2C 51.5 % LV Ejection Fraction 2C AL 51.6 % LA Diameter 3.4 cm LA Width 4.3 cm LA Height 5.4 cm RA Width 3.9 cm RA Height 5.0 cm Aorta at Sinotubular Diameter 2.6 cm M-MODE Aortic Annulus Diameter 3.0 cm LA Ao Ratio MM 1.2 MV E Point Septal Separation 0.6 cm DOPPLER AV Peak Velocity 144.0 cm/s LVOT Peak Velocity 139.0 cm/s AV Area Cont Eq vti 3.6 cm squared AV Area Cont Eq pk 3.1 cm squared MV Peak Velocity 95.0 cm/s MV Area PHT 3.1 cm squared Mitral E to A Ratio 0.9 MV E' Velocity 46.5 cm/s Mitral E to MV E' Ratio 7.3 Mitral E to LV E' Lateral Ratio 6.8 Mitral E to LV E' Septal Ratio 8.0 TR Peak Velocity 281.4 cm/s TR Peak Gradient 31.7 mmHg TR Mean Velocity 238.7 cm/s TR Mean Gradient 23.5 mmHg TR Velocity Time Integral 99.5 cm TV Peak E Velocity 73.0 cm/s Right Atrial Pressure 8.0 mmHg Pulmonary Artery Systolic Pressu 39.7 mmHg PV Peak Velocity 99.0 cm/s RV Acceleration Time 0.1 s RV Ejection Time 0.3 s RV AcT/ET 0.3 FINDINGS Left Ventricle Left ventricle is normal in size. LV systolic function is normal with EF 50-55%. No regional wall motion abnormalities are seen. Right Ventricle Normal in size and function Right Atrium Normal in size Left Atrium Normal in size Mitral Valve Structurally normal mitral valve. Mild mitral regurgitation. Aortic Valve Structurally normal aortic valve. No significant stenosis is seen. Mild to moderate aortic regurgitation. Tricuspid Valve Mild to moderate tricuspid regurgitation. RVSP is 35 to 40 mmHg. This is consistent with mild pulmonary hypertension. Pulmonic Valve Not well visualized. Pericardium Normal Aorta Normal in size IVC Appears to be normal CONCLUSIONS LV systolic function is normal with EF of 50 to 55%. Mild mitral regurgitation. Mild to moderate aortic regurgitation. Mild to moderate tricuspid regurgitation. Mild pulmonary hypertension No comparison studies are available. Abram Stewart MD (Electronically Signed) Final Date: 06 July 2023 14:21 S
--- NOTE | 2023-07-06 03:29 | XRR_ITS ---
PROCEDURE INFORMATION: Exam: XR Chest Exam date and time: 07/06/2023 4:10 AM Age: 78 years old Clinical indication: Device placement; Other: Temporary pacer TECHNIQUE: Imaging protocol: Radiologic exam of the chest. Views: 1 view. COMPARISON: CT angio chest [id number] 07/26/2021 2:40 PM FINDINGS: Tubes, catheters and devices: Pacer device is noted over the anterior chest wall. Multiple wires overlie the chest, presumed outside the body Lungs: Diffuse patchy airspace infiltration predominantly of the right upper lobe, left lower lobe and retrocardiac region. Pleural spaces: Unremarkable. No pleural effusion. No pneumothorax. Heart/Mediastinum: Prominence of the cardiomediastinal silhouette, however this likely due to patient positioning. Unchanged aortic knob atherosclerotic calcifications. Bones/joints: Diffuse degenerative change of the visualized osseous structures. XR/XR chest 1V portable [id number] IMPRESSION: 1. Diffuse patchy airspace infiltrates predominantly over the right upper lobe, left lower lobe, retrocardiac region. Findings may represent volume overload, infection, aspiration, atelectasis. Correlate with clinical signs and symptoms. 2. Pacer device over the chest wall. Multiple wires presumed outside patient.
[2023-07-06 03:33] LABS: Procalcitonin 0.08 ng/mL (0-0.5)
[2023-07-06 03:34] LABS: Erythrocyte Sedimentation Rate 2 mm/hr (0-10)
--- NOTE | 2023-07-06 03:34 | CT_ITS ---
WS: [id number] CT HEAD NONCONTRAST HISTORY: encephalopathy TECHNIQUE: Contiguous axial imaging performed through the brain in 2.5 mm imaging. Bone and soft tiss ue windows. Sagittal and coronal reformats reviewed. All CT scans at [facility] use at least one of these dose optimization techniques: automated exposure control; mA and/or kV adjustment per pa tient size (includes targeted exams where dose is matched to clinical indication); or iterative recon struction. DLP: 1193.94 mGy.cm COMPARISON: None available. No acute intracranial hemorrhage, midline shift or mass effect. Moderate atrophy with extensive confluent small vessel ischemic type changes. Numerous lacunar infarc ts in the basal ganglia. Cerebellar atrophy with a prior RIGHT cerebellar infarcts. Ventricles: Ventricles and extra-axial spaces are prominent on the basis of atrophy. Paranasal sinuses: As visualized are clear. Mastoid air cells: Well pneumatized. Calvarium and scalp: Skull is intact with no soft tissue edema or swelling. IMPRESSION: 1. No acute intracranial hemorrhage or edema. 2. Moderate atrophy with extensive small vessel ischemic disease and numerous lacunar infarcts.
--- NOTE | 2023-07-06 03:39 | ECG_ITS ---
[facility] Test Date: 2023-07-06 Pat Name: Anant Byrne Department: Room: ICU03 Gender: Male Manager Government: : 1945 Requested By: Marco Antonio Contreras Order Number: [id number] Abel MD: Abram Stewart M.D. Measurements Intervals [place] Rate: 59 P: 84 AL: 244 QRS: 92 QRSD: 111 T: 43 QT: 443 QTc: 440 Interpretive Statements SINUS BRADYCARDIA WITH FIRST DEGREE AV BLOCK BORDERLINE RIGHT AXIS DEVIATION [QRS AXIS > 90] MODERATE INTRAVENTRICULAR CONDUCTION DELAY [110+ ms QRS DURATION] Compared to ECG 07/06/2023 01:49:01 First degree AV block now present Intraventricular conduction delay now present Myocardial infarct finding no longer present Electronically Signed On 07-09-2023 10:59:48 CRYSTALIZER OPERATOR by Abram Stewart M.D. [id number]
[2023-07-06 03:45] LABS: C Reactive Protein 10.2 mg/L (0.0-4.9)
[2023-07-06 04:40] LABS: Add Urine Microscopic? YES; Bacteria Urine TRACE /hpf; Bilirubin Urine Neg (Negative); Blood Urine Neg (Negative); Glucose Urine UA 4+ (Normal); Ketones Urine Negative (Negative); Leukocyte Esterase Urine Negative (Negative); Mucus Urine 2+ /hpf; Nitrate Urine Negative (Negative); Protein Urine Trace (Negative); Specific Gravity, Urine 1.015 (1.005-1.030); Squamous Epithelial Cell Urine 0-4 /hpf (0-5); Urine Appearance Clear (CLEAR); Urine Color Yellow (Yellow); Urobilinogen Urine Neg (Negative); pH Urine 5 (5-7)
[2023-07-06 04:41] LABS: Add Urine Culture? No
[2023-07-06] MEDS: pantoprazole 40 mg SDV IVP (04:46)
[2023-07-06] MEDS: sodium chloride 0.9% 1,000 ML 50 ML IV ×2 (04:47→17:45)
[2023-07-06 05:21] LABS: Troponin 5 2HR 29.44 ng/L (0-15)
[2023-07-06 05:31] LABS: Troponin 5 2HR Delta -2.56 ABS# (0-10)
--- NOTE | 2023-07-06 07:39 | ECG_ITS ---
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 Measurements Intervals [place] Rate: 54 P: 0 FL: 0 QRS: 81 QRSD: 114 T: 31 QT: 427 QTc: 405 Interpretive Statements SINUS BRADYCARDIA WITH 2ND DEGREE AV BLOCK, 2:1 OR MOBITZ TYPE II SEPTAL MYOCARDIAL INFARCTION , PROBABLY OLD [40+ ms Q WAVE IN V1/V2] CRITICAL TEST RESULT Compared to ECG 07/26/2021 14:20:50 Sinus rhythm no longer present Myocardial infarct finding still present Electronically Signed On 07-09-2023 11:00:09 TRAIN CREW MEMBER by Abram Stewart M.D. [id number]
[2023-07-06] MEDS: gabapentin 100 mg Capsule PO ×2 (08:35→20:50)
[2023-07-06 08:49] LABS: Troponin 5 6HR 35.54 ng/L (0-15); Troponin 5 6HR Delta 3.54 ng/L (0-12)
--- NOTE | 2023-07-06 09:28 | PM.PROC ---
Procedure Note: Date of procedure: 07/06/23 Pre-procedure diagnosis: Syncope/ mobitz type AV block Post-procedure diagnosis: same Procedure: Temporary transvenous pacemaker placement: We obtained access in right common femoral vein using micropuncture. Under fluoroscopic guidance pacemaker was inserted and sutured in place. Diagnosis remains pacing at 60 bpm and output of 4 mA. Patient left the medical laboratory manager in a stable condition. Op report anesthesia: Local (Moderate sedation) Performing Provider: Abram Stewart Estimated blood loss (mL): 5 Complications: None Condition: stable Disposition: ICU Coding Level of Care Code Acute Code for [facility] Fwdinesh
--- NOTE | 2023-07-06 09:33 | PC.PHAR ---
pt wouldnt verify his medications-called pts states the pt is normally the one who takes care of his own medications-pts went through the meds she knew and looked at bottles and pills in pts med information systems planner-medications entered are based on what the pharmacy shows has been filled and what the pts states-
--- NOTE | 2023-07-06 10:00 | P.CONIM_ITS ---
Providers/Reason For Consult 2 Consulting Physician/Specialty*: Dr. Sherwood/cardiothoracic surgery Reason for Consult*: Complete heart block currently with temporary pacer in position Requesting Physician: Dr. Stewart Attending Physician: Daniel Pierce MD Primary Care Provider: Kem Briggs DO History of Present Illness History of Present Illness Anant Byrne is an 78 year old male who presented to the emergency department yesterday evening bradycardic with a heart rate of 30 and noted 4- second pauses on telemetry. Patient's states patient has been has had near syncopal episodes several times a day. He has no prior history of cardiac issues. He does have a history of prior CVA and does have known dementia. He was initially transcutaneously paced upon presentation to the ER. Temporary transvenous pacemaker was placed yesterday evening by Dr. Stewart through the right femoral vein approach. He is currently intermittently paced. Vital signs otherwise stable. I did confirm with him at bedside in ICU bed #3. He does answer some questions appropriately though he is clearly intermittently confused and was unclear as to whether he was going home today. He does want to sit up in the bed with a transvenous pacemaker in position and I did reconstruct him on attempting to continue to lie supine. Pertinent past medical history includes dementia, hypertension, diabetes mellitus. He does have difficulty hearing, with best acuity in the right ear. Review of Systems 2 General: Reports: ROS unobtainable due to mental status Medications/Allergies Home Medications Medication Instructions Recorded Confirmed Last Taken Type metformin 1,000 mg tablet 1,000 mg PO BID 90 days #180 tabs 03/03/21 07/06/23 07/26/21 Rx amlodipine 10 mg tablet 10 mg PO DAILY 07/26/21 07/06/23 07/26/21 History coenzyme Q10 100 mg capsule 100 mg PO DAILY 07/26/21 07/06/23 Unknown History (CoQ-10) multivitamin 1 tab PO DAILY 07/26/21 07/06/23 Unknown History omeprazole 40 mg capsule,delayed 40 mg PO DAILY 07/26/21 07/06/23 Unknown History release DME: Walker #1 ea 08/02/21 07/06/23 Unknown Rx atenolol 50 mg tablet 50 mg PO BID #60 tabs 10/09/21 07/06/23 Unknown Rx amitriptyline 150 mg tablet 150 mg PO BEDTIME 07/06/23 07/06/23 Unknown History atorvastatin 40 mg tablet 40 mg PO DAILY 07/06/23 07/06/23 Unknown History empagliflozin 10 mg tablet 10 mg PO DAILY 07/06/23 07/06/23 Unknown History (Jardiance) hydralazine 50 mg tablet 50 mg PO TID 07/06/23 07/06/23 Unknown History lisinopril 20 mg tablet 20 mg PO BID 07/06/23 07/06/23 Unknown History lysine 500 mg tablet 500 mg PO DAILY 07/06/23 07/06/23 Unknown History omega-3 fatty acids 1,000 mg 1,000 mg PO DAILY 07/06/23 07/06/23 Unknown History capsule Allergies Allergy/AdvReac Type Severity Reaction Status Date / Time No Known Allergies Allergy Verified 07/06/23 09:33 Current Medications Generic Name Dose Route Start Last Admin Trade Name Freq PRN Reason Stop Dose Admin Gabapentin 100 mg 07/06/23 09:00 07/06/23 08:35 Gabapentin 100 Mg Capsule PO 100 mg TID COLLIN Administration Sodium Chloride 1,000 mls @ 50 mls/hr 07/06/23 03:28 07/06/23 04:47 Sodium Chloride 0.9% IV 50 mls/hr .Q20H COLILN Administration Insulin Human Lispro 0 unit 07/06/23 08:00 07/06/23 08:33 Insulin Lispro 100 Unit/1 Ml SUBCUT Not Given TIDWM COLLIN Protocol Pantoprazole Sodium 40 mg 07/06/23 03:28 07/06/23 04:46 Pantoprazole 40 Mg Sdv IVP 40 mg Q24H COLLIN Administration PFSH Acute 2 PFSH: Medical History Acute thoracic back pain Dyslipidemia BPH loc w urin obs/LUTS Weight loss, non-intentional Acquired deafness of both ears History of stroke GERD (gastroesophageal reflux disease) Chronic headache Type 2 diabetes mellitus Hypertension Surgical History History of colonoscopy <10 yrs History of knee surgery left (x4) History of tonsillectomy H/O umbilical hernia repair History of cholecystectomy Family History Brother Cancer Skin Cancer Social History Smoking and tobacco/nicotine status: never used tobacco/nicotine Alcohol intake: never Substance/Drug Use: never Vitals/I&O/Wt Last Vital Signs Temp 97.7 F 07/06/23 03:25 Pulse 72 07/06/23 09:07 Resp 15 07/06/23 05:00 BP 143/67 07/06/23 05:00 Pulse Ox 94 07/06/23 09:07 O2 Del Method Nasal Cannula 07/06/23 09:07 O2 Flow Rate 3 07/06/23 09:07 Weight last 48 hrs Weight 187 lb Weight 187 lb Weight 195 lb Physical Exam 2 Const: COMMON NORMALS: alert; negative for patient oriented x3 ORIENTATION/CONSCIOUSNESS: Yes oriented to person, Yes oriented to place and Yes oriented to time HENMT: COMMON NORMALS: normocephalic HEAD & SCALP: normocephalic Neck/C-Spine: COMMON NORMALS: full ROM and supple GENERAL: Yes trachea midline CERVICAL SPINE: Yes cervical ROM normal Chest: COMMONS NORMALS: normal inspection of the chest and normal palpation of entire chest wall Resp: COMMON NORMALS: normal respiratory effort, No use of accessory muscles, clear to auscultation bilaterally and percussion normal EFFORT & INSPECTION: Yes able to speak in complete sentences and Yes symmetric chest movement A USCULTATION: clear to auscultation bilaterally PERCUSSION: percussion normal Cardio: COMMON NORMALS: regular rate, regular rhythm, S1 normal heart sound present, S2 normal heart sound present, No gallops present (Cardio), No murmurs present (Cardio) and No rub (Cardio) RATE: regular rate RHYTHM: regular rhythm HEART SOUNDS: S1 normal heart sound present and S2 normal heart sound present GI: COMMON NORMALS: Normal to inspection, nondistended, normoactive bowel sounds present, Soft to palpation and no bruits PALPATION: Yes Soft to palpation Extremity: COMMON NORMALS: normal to inspection and no clubbing, cyanosis or edema NARRATIVE EXTREMITY EXAM: Dressing in place in right groin with transvenous pacemaker in position. Neuro: COMMON NORMALS: no focal motor deficits and no sensory deficits noted; negative for patient oriented x3 SENSORIUM/ORIENTATION: Yes alert, Yes oriented to person, Yes oriented to place and Yes oriented to time GAIT: Yes Normal gait present Psych: COMMON NORMALS: normal affect Urinary Catheter Management: Ruiz: Cath Placed During This Visit: yes Reason for Continuing Indwelling Catheter: Accurate Measurement of Urinary Output in Critically Ill Patients Urinary Catheter Date of Insertion: 07/06/23 Urinary Catheter Time of Insertion: 05:26 Data 07/06/23 01:47 07/06/23 01:47 A&P Assessment and plan (1) Mobitz type II block: 78-year-old gentleman with dementia presented with profound bradycardia requiring transcutaneous pacing prior to placement of a transvenous pacemaker through the right groin by Dr. Stewart yesterday evening. Family reports patient has had several episodes of syncope and near syncope, presumably related to profound bradycardia. Rationale for permanent pacemaker implantation was carefully discussed with Mr. Byrne. While he does have some confusion I do believe he understands the process recommending pacemaker implantation. I have conferred with his by phone and she is in agreement. We are currently attempting to have the availability of [employer] pacemaker telecommunications sales representative so that we may proceed with this implantation. Finalized scheduled for this as yet to be determined. He currently remains n.p.o. Consult Attestations 2 Medical Necessity Statement: Profound bradycardia with heart block, requiring temporary pacing Coding Level of Care Code Acute Code for [facility] Diagnoses Mobitz type II block I44.1
--- NOTE | 2023-07-06 10:15 | P.PN_ITS ---
Documented by User: THOMAS Dugan STDDINA 07/06/23 10:53 Subjective 2 Subjective: Jordan Byrne is an 78-year-old male who presented to the ER with bradycardia in the 30s after multiple episodes of syncope and collapse lasting a few seconds which been ongoing over the past year but have happened several times in the last 24 hours. He was found to have Mobitz type II AV block on the EKG, with 3 to 4-second pauses. He was placed on external pacemaker 80 bpm 80 mA and cardiology was consulted and placed a temporary pacemaker. He is oriented to person and place and time patient is hard of hearing. Patient has a past medical history of cardiovascular aneurysm type 2 diabetes mellitus hypertension BPH and dementia. Per patient's patient was driving a couple weeks ago and has had some cognitive decline over the past year. No recent illness. No cough or congestion or SOB. Vitals/I&O/Wt Last Vital Signs Temp 97.7 F 07/06/23 03:25 Pulse 72 07/06/23 09:07 Resp 15 07/06/23 05:00 BP 143/67 07/06/23 05:00 Pulse Ox 94 07/06/23 09:07 O2 Del Method Nasal Cannula 07/06/23 09:07 O2 Flow Rate 3 07/06/23 09:07 Weight last 48 hrs Weight 187 lb Weight 187 lb Weight 195 lb Physical Exam 2 Narrative: General lethargic, oriented to person place time and situation, mentation slow HEENT normocephalic atraumatic PERRL EOMI normal movement, patient cannot hear out of left ear and is hard of hearing in right ear, sight intact, Cardiac paced heartbeat from temporary pacemaker working, capillary refill brisk, no edema Pulmonary rate normal breath sounds no wheezes rubs or rhonchi Abdomen deferred Extremities movement normal strength 5/5 throughout sensation intact Neuro no focal deficit, slow mentation, problems differentiating words, Normal mood and blunted affect Urinary Catheter Management: Ruiz: Cath Placed During This Visit: yes Reason for Continuing Indwelling Catheter: Accurate Measurement of Urinary Output in Critically Ill Patients Urinary Catheter Date of Insertion: 07/06/23 Urinary Catheter Time of Insertion: 05:26 Data 07/06/23 01:47 07/06/23 01:47 A&P Assessment and plan (1) Mobitz type II block: Patient has Mobitz type II AV block, likely causing his syncope and collapse. He received placement of temporary pacemaker through his groin by Dr. Stewart, and is paced well with with good perfusion. (2) Hypertension: Continue lisinopril 20 mg p.o. twice daily Continue atenolol 50 mg p.o. twice daily Continue hydralazine 50 mg p.o. 3 times daily (3) Dyslipidemia: The continue atorvastatin 40 mg p.o. daily late Continue coenzyme Q ten 100 mg p.o. daily (4) Type 2 diabetes mellitus: Continue empagliflozin 10 mg twice daily Sliding scale insulin carbohydrate controled diet Qualifiers: Diabetes mellitus complication status: without complication Diabetes mellitus retirement insulin use: without cd storage and materials make up helper use Qualified Code(s): E11.9 - Type 2 diabetes mellitus without complications (5) Syncope and collapse: See above for Mobitz type II block (6) GERD (gastroesophageal reflux disease): Continue omeprazole 40 mg p.o. to Qualifiers: Esophagitis presence: without esophagitis Qualified Code(s): K21.9 - Gastro-esophageal reflux disease without esophagitis (7) Acute kidney injury superimposed on CKD: Plan Full code Coding Level of Care Code Critical Care >/= 30 minutes Diagnoses Mobitz type II block I44.1 Essential hypertension I10 Dyslipidemia E78.5 Type 2 diabetes mellitus without complication, without long-term current use of insulin E11.9 Diabetes mellitus complication status: without complication Diabetes mellitus cd storage and materials make up helper insulin use: without cd storage and materials make up helper use Syncope and collapse R55 Gastroesophageal reflux disease without esophagitis K21.9 Esophagitis presence: without esophagitis Acute kidney injury superimposed on CKD N17.9; N18.9 Documented by User: Daniel Pierce MD 07/06/23 11:58 Physical Exam 2 Narrative: General lethargic, oriented to person place time and situation, extremely hard of hearing HEENT normocephalic atraumatic PERRL EOMI normal movement, patient cannot hear out of left ear and is hard of hearing in right ear, sight intact, Cardiac paced heartbeat from temporary pacemaker working, capillary refill brisk, no edema Pulmonary rate normal breath sounds no wheezes rubs or rhonchi Abdomen deferred Extremities movement normal strength 5/5 throughout sensation intact Neuro no focal deficit, slow mentation, problems differentiating words, Normal mood and blunted affect Urinary Catheter Management: Ruiz: Cath Placed During This Visit: yes Data 07/06/23 01:47 07/06/23 01:47 A&P Assessment and plan (1) Mobitz type II block: Patient has Mobitz type II AV block, likely causing his syncope and collapse. He received placement of temporary pacemaker through his groin by Dr. Stewart, and is paced well with with good perfusion. Permanent place maker placement is being planned Echocardiogram Consults with vascular surgery regarding pacemaker (2) Hypertension: N.p.o. currently Hold beta-nora Resume other p.o. meds when able Hydralazine 10 mg IV every 6 hours as needed currently. (3) Dyslipidemia: (4) Type 2 diabetes mellitus: Sliding scale insulin carbohydrate controled diet Qualifiers: Diabetes mellitus complication status: without complication Diabetes mellitus cd storage and materials make up helper insulin use: without cd storage and materials make up helper use Qualified Code(s): E11.9 - Type 2 diabetes mellitus without complications (5) Syncope and collapse: (6) GERD (gastroesophageal reflux disease): Qualifiers: Esophagitis presence: without esophagitis Qualified Code(s): K21.9 - Gastro-esophageal reflux disease without esophagitis (7) Acute kidney injury superimposed on CKD: Hydration Repeat renal function tomorrow If does not improve consider further imaging Hold DREW inhibitor. Check CK. Plan Other medical problems as listed in past medical history Full code SCDs for anticoagulation. Holding pharmacologic as likely pacemaker soon. High risk patient in ICU, awaiting pacemaker placement, currently being completely temporarily paced. Attestations 2 Medical Necessity Statement*: Needs continued hospital stay secondary to cardiac dysrhythmia requiring pacemaker Critical Care Time: The high probability of a clinically significant, sudden or life threatening deterioration of the patient's [cardiac, renal] system(s) required my full and direct attention, intervention and personal management. The critical care time is as shown. This time is in addition to time spent performing any reported procedures but includes the following: [x] Data and vital sign review and interpretation [x] Patient assessment, examination and intervention [x] Documentation [x] Medication orders and management Critical Care Time (min): 31 Coding Level of Care Code Critical Care >/= 30 minutes Critical care time (in minutes): 31 The high probability of a clinically significant, sudden or life threatening deterioration, as referenced in this documentation, required my full and direct attention, intervention and personal management. The critical care time shown is in addition to time spent performing any reported separately billable procedures and includes the following: [x] Data and vital sign review and interpretation [x ] Patient assessment, examination and intervention [x] Medication orders and management [x] Patient/Family updates as able [x] Care Coordination and Documentation. Diagnoses Mobitz type II block I44.1 Essential hypertension I10 Dyslipidemia E78.5 Type 2 diabetes mellitus without complication, without long-term current use of insulin E11.9 Diabetes mellitus complication status: without complication Diabetes mellitus cd storage and materials make up helper insulin use: without retirement use Syncope and collapse R55 Gastroesophageal reflux disease without esophagitis K21.9 Esophagitis presence: without esophagitis Acute kidney injury superimposed on CKD N17.9; N18.9
[2023-07-06] MEDS: chlorhexidine gluconate 4% Btl 118 mL 1 APPLIC TOPICAL (10:25)
--- NOTE | 2023-07-06 11:04 | PC.NURSE ---
Dr. Kari Stewart and Jackie arriola, plan to place permanent pace maker once one is available
--- NOTE | 2023-07-06 11:23 | P.ANESASSM_ITS ---
Pre-Anesthetic Assessment Height/Weight: Height 1.83 m Weight 84.822 kg Temp Pulse Resp BP Pulse Ox O2 Del Method O2 Flow Rate 97.7 F 60 14 184/73 97 Nasal Cannula 3 07/06/23 03:25 07/06/23 09:30 07/06/23 09:30 07/06/23 09:30 07/06/23 09:30 07/06/23 09:07 07/06/23 09:07 Preop Diagnosis: Mobitz type 2 AV block/ Syncope Operation Date: 07/06/23 02:45 Proposed Procedures p Temporary Pacemaker Placement(Not Applicable) - Abram Stewart M.D Operation Date: 07/06/23 15:20 Proposed Procedures p Pacemaker Insertion(Not Applicable) - Allen Sherwood MD Familial anesthetic complications: None Was Beta Radha taken within 24 hours: N/A Was Clonidine taken within 24 hours: N/A Last intake: > 8 hrs Social No alcohol and No tobacco Medications/Allergies Home Medications Medication Instructions Recorded Confirmed Last Taken Type metformin 1,000 mg tablet 1,000 mg PO BID 90 days #180 tabs 03/03/21 07/06/23 07/26/21 Rx amlodipine 10 mg tablet 10 mg PO DAILY 07/26/21 07/06/23 07/26/21 History coenzyme Q10 100 mg capsule 100 mg PO DAILY 07/26/21 07/06/23 Unknown History (CoQ-10) multivitamin 1 tab PO DAILY 07/26/21 07/06/23 Unknown History omeprazole 40 mg capsule,delayed 40 mg PO DAILY 07/26/21 07/06/23 Unknown History release DME: Walker #1 ea 08/02/21 07/06/23 Unknown Rx atenolol 50 mg tablet 50 mg PO BID #60 tabs 10/09/21 07/06/23 Unknown Rx amitriptyline 150 mg tablet 150 mg PO BEDTIME 07/06/23 07/06/23 Unknown History atorvastatin 40 mg tablet 40 mg PO DAILY 07/06/23 07/06/23 Unknown History empagliflozin 10 mg tablet 10 mg PO DAILY 07/06/23 07/06/23 Unknown History (Jardiance) hydralazine 50 mg tablet 50 mg PO TID 07/06/23 07/06/23 Unknown History lisinopril 20 mg tablet 20 mg PO BID 07/06/23 07/06/23 Unknown History lysine 500 mg tablet 500 mg PO DAILY 07/06/23 07/06/23 Unknown History omega-3 fatty acids 1,000 mg 1,000 mg PO DAILY 07/06/23 07/06/23 Unknown History capsule Allergies Allergy/AdvReac Type Severity Reaction Status Date / Time No Known Allergies Allergy Verified 07/06/23 09:33 Current Medications Generic Name Dose Route Start Last Admin Trade Name Marta PRN Reason Stop Dose Admin Chlorhexidine Gluconate 1 applic 07/06/23 10:00 07/06/23 10:25 Chlorhexidine Gluconate 4% Btl 118 Ml TOPICAL 1 applic DAILY COLLIN Administration Gabapentin 100 mg 07/06/23 09:00 07/06/23 08:35 Gabapentin 100 Mg Capsule PO 100 mg TID COLLIN Administration Sodium Chloride 1,000 mls @ 50 mls/hr 07/06/23 03:28 07/06/23 04:47 Sodium Chloride 0.9% IV 50 mls/hr .Q20H COLLIN Administration Insulin Human Lispro 0 unit 07/06/23 08:00 07/06/23 11:16 Insulin Lispro 100 Unit/1 Ml SUBCUT Not Given TIDWM COLLIN Protocol Pantoprazole Sodium 40 mg 07/06/23 03:28 07/06/23 04:46 Pantoprazole 40 Mg Sdv IVP 40 mg Q24H COLLIN Administration PFSH Anesthesia Medical History Acute thoracic back pain Dyslipidemia BPH loc w urin obs/LUTS Weight loss, non-intentional Acquired deafness of both ears History of stroke GERD (gastroesophageal reflux disease) Chronic headache Type 2 diabetes mellitus Hypertension Surgical History History of colonoscopy <10 yrs History of knee surgery left (x4) History of tonsillectomy H/O umbilical hernia repair History of cholecystectomy Family History Brother Cancer Skin Cancer Social History Smoking and tobacco/nicotine status: never used tobacco/nicotine Alcohol intake: never Substance/Drug Use: never Data Anesthesia 07/06/23 01:47 07/06/23 01:47 Short CBC 07/06/23 Range/Units 01:47 WBC 8.48 (3.29-11.43) 10^3/uL Hgb 11.10 L (11.27-16.99) g/dL Hct 33.7 L (37-53) % MCV 93.9 (82-101) fl Plt Count 145 L (157-399) 10^3/cmm Neut % (Auto) 75.4 % Neut # (Auto) 6.41 (1.8-7.7) 10^3/uL BMP 07/06/23 01:47 Sodium 143 Potassium 4.6 Chloride 108 H Carbon Dioxide 22 BUN 37 H Creatinine 2.0 H Glucose 130 H Calcium 9.0 Cardiac Enzymes 07/06/23 07/06/23 07/06/23 Range/Units 01:47 04:05 08:14 Troponin T Baseline 32 H (0-15) ng/L Troponin T 120 Minute 29.44 H (0-15) ng/L Delta Troponin T -2.56 L (0-10) ABS# Troponin T Hi Sens 6Hr 35.54 H (0-15) ng/L Troponin T Hi Sens 6Hr Delta 3.54 (0-12) ng/L Liver Function 07/06/23 Range/Units 01:47 Total Bilirubin 0.2 (0.15-1.2) mg/dL AST 12 (0-40) U/L ALT 8 (0-41) U/L Alkaline Phosphatase 60 (40-130) U/L Albumin 3.7 (3.5-5.2) g/dL Urine 07/06/23 Range/Units 04:26 Urine Color Yellow (Yellow) Urine Appearance Clear (CLEAR) Urine pH 5 (5-7) Ur Specific [place] 1.015 (1.005-1.030) Urine Protein Trace (Negative) Urine Glucose (UA) 4+ H (Normal) Urine Ketones Negative (Negative) Urine Nitrate Negative (Negative) Urine Bilirubin Neg (Negative) Ur Leukocyte Esterase Negative (Negative) Urine RBC 5-10 H (0-2) /hpf Urine WBC None (0-5) /hpf Coags 07/06/23 01:47 ESR 2 PT 14.70 INR 1.11 C-Reactive Protein 10.2 H Cardiac Studies: 2 No Data to Display
[2023-07-06 11:31] LABS: Glucose Point of Care 110 mg/dL (70-110)
[2023-07-06 11:31] LABS: Glucose Point of Care 99 mg/dL (70-110)
[2023-07-06] MEDS: hyDRALAzine 20 mg/mL INJ 1 mL 10 MG IVP ×2 (12:03→18:59)
[2023-07-06 12:32] LABS: Creatine Phosphokinase 77 U/L (39-308)
--- NOTE | 2023-07-06 14:54 | PC.NURSE ---
off unit with OR staff
[2023-07-06] MEDS: ceFAZolin 2,000 MG in sodium chloride 0.9% (plus) 50 ML 100 MG IV (15:07)
--- NOTE | 2023-07-06 15:15 | SC_ITS ---
WS: [id number] C-arm fluoroscopy for pacemaker wire insertion, 07/06/2023 Clinical Data: PACEMAKER PLACEMENT Comparison: Portable chest, 07/06/2023 Findings: The pacemaker wires appear in the heart. Impression: Insertion of pacemaker wires.
[2023-07-06] MEDS: lidocaine 1% INJ 10 mL (per mL) 20 ML INJECTION (15:46)
[2023-07-06] MEDS: ceFAZolin 1,000 mg SDV 1000 MG IRRIGATION (15:47)
--- NOTE | 2023-07-06 17:18 | P.OP_ITS ---
Operative Report Date of procedure: July 06, 2023 Pre-op diagnosis: Highly symptomatic bradycardia with Mobitz type II AV heart block Post-op diagnosis: same Procedure done: Dual-lead pacemaker and leads implantation Implants: Medtronic pacemaker Atrial and ventricular leads Pathology: none sent Surgeon: Allen Sherwood MD Anesthesia: MAC and Local Complications: None: Postprocedure chest x-ray pending Condition: stable Disposition: ICU Brief History: Mr. Byrne is an 78-year-old gentleman who presented yesterday with profound bradycardia and multiple episodes of syncope and near syncope. He was found to be in Mobitz type II AV heart block with a heart rate of 30 that was medically refractory. Temporary transvenous pacemaker was placed by Dr. Stewart and I was consulted for permanent pacemaker implantation. I counseled with his preoperatively as well as with Mr. Byrne, who is developing progressive dementia. Details and risk of the procedure were carefully discussed. Both he and his stated understanding and wished to proceed. Proper consents were provided for review and signature. Procedure: Procedure: Mr. Byrne was taken to the OR suite and placed in the supine position over a shoulder roll. Appropriate timeout was completed and confirmed by all surgical members present. He received conscious sedation with continuous anesthesia monitoring by. He has entire chest was sterilely prepped and draped. 1% lidocaine was infiltrated in the left subclavicular region. While in Trendelenburg position, utilizing modified seldinger technique, along with handheld ultrasound guidance, 2 guidewires were placed in the left subclavian vein. This was confirmed in position by fluoroscopy. Next, after infiltration with lidocaine, a subcutaneous pocket was created beginning from the exit point of the guidewire and extending laterally and inferiorly. Cautery was utilized to create the pocket just above the pectoralis musculature. Hemostasis was confirmed. An antibiotic-soaked sponge was placed in the wound. A dilator and tear-away sheath was placed over the first guidewire and advanced under fluoroscopy. Guidewire and dilator were removed. Next using a combination of curved and straight stylettes, the right ventricular lead was placed in position by fluoroscopy. The distal screw was extended. Interrogation was then performed confirming appropriate parameters. The tear-away sheath was then removed and the ventricular lead was sewn to the floor of the subcutaneous pocket. In a similar fashion dilator and tear-away sheath was placed over the 2nd guide wire and advanced under fluoroscopy. Guidewire and dilator were removed. Straight and curved stylettes were used to position the right atrial lead with fluoroscopy. Distal screw was extended. Interrogation was then performed. Tear-away sheath was then removed. Atrial lead was secured to the floor of the subcutaneous pocket. Pocket was irrigated with antibiotic solution and hemostasis again confirmed. Pacing generator was brought into the field, and after confirmation of hemostasis in the subcutaneous pocket, the leads were connected to the generator with appropriate capture. The entire system was interrogated by fluoroscopy. Leads and generator were secured in the pocket. Sponge and needle count was correct. The wound was then closed in 2 layers of 3-0 Vicryl suture. Skin was reapproximated in a subcuticular manner with 4-0 Monocryl suture. A pressure dressing was applied. The left arm was placed in a shoulder immobilizer. The patient had equal breath sounds bilaterally. Mr. Byrne was then transferred to the intensive care unit, where chest x-ray is currently pending. I did pet counselor with his at the completion of the procedure. Following are the specifics of this system: Right ventricular lead is 58 cm and model 5076. Serial number [id number] Right atrial lead is 52 cm and is model 5076. Serial number [id number]. Ventricular lead had sensing of 10 mV with an impedance of 760 ohms. Threshold was 1.0 V Atrial lead had sensing of 2.3 mV with an impedance of 380 ohms. Threshold was 1.0 V. [employer] generator: Model # [id number] Serial # [id number]
--- NOTE | 2023-07-06 17:30 | ANE.PACU2 ---
Inpatient post-anesthesia follow up: Airway intact: Yes Vital signs: Temperature 98.8 F Pulse Rate 69 Respiratory Rate 22 Blood Pressure 165/72 Pulse Oximetry 91 Oxygen Delivery Me thod [ Nasal Cannula Current Rate & Del amelia] Oxygen Delivery Me thod Room Air Oxygen Flow Rate [ Current Rate 3 & Delivery] Oxygen Flow Rate 4 Fraction of Inspir ed Oxygen Hydration adequate: Yes Nausea and vomiting: No Pain level: 1 Mental status: Baseline
--- NOTE | 2023-07-06 17:41 | PC.NURSE ---
back from OR, perm pace maker capturing at 60 bpm
[2023-07-06 17:52] LABS: Glucose Point of Care 90 mg/dL (70-110)
--- NOTE | 2023-07-06 19:02 | XRR_ITS ---
PROCEDURE INFORMATION: Exam: XR Chest Exam date and time: 07/06/2023 7:19 PM Age: 78 years old Clinical indication: Device placement; Other: Pacemaker; Additional info: S/P pacemaker implantation TECHNIQUE: Imaging protocol: Radiologic exam of the chest. Views: 1 view. COMPARISON: CR (CHEST, ) 07/06/2023 4:10 AM FINDINGS: Tubes, catheters and devices: There is a new left-sided cardiac pacemaker device with [address] Lungs: Unremarkable. No consolidation. Pleural spaces: No pneumothorax. Heart/Mediastinum: Widening of the upper mediastinum is redemonstrated and similar to the prior examination. Bones/joints: Unremarkable. XR/XR chest 1V portable [id number] IMPRESSION: 1. There is a new left-sided cardiac pacemaker device with [address] 2[address] No pneumothorax.
[2023-07-06] MEDS: amitriptyline 25 mg Tablet 50 MG PO (20:50)
[2023-07-06] MEDS: hyDRALAzine 50 mg Tablet PO (20:50)
[2023-07-06 23:57] LABS: Glucose Point of Care 91 mg/dL (70-110)
[2023-07-07] VITALS (31 sets, daily range): BP systolic 136–194; BP diastolic 68–103; PULSE 65–73; RESP 15–30; TEMP 36.4–37.1; O2SAT 90–95
[2023-07-07] MEDS: pantoprazole 40 mg SDV IVP (03:29)
[2023-07-07] MEDS: hyDRALAzine 20 mg/mL INJ 1 mL 10 MG IVP (03:29)
--- NOTE | 2023-07-07 04:09 | PC.NURSE ---
Patient rested comfortably throughout shift. No reports of pain. AOx4. Leg restriction lifted at 0000, no hematoma or drainage present. Pacemaker appears to be capturing via monitor. HR remains >65. Hypertension noted and prn hydralizine administered. Afebrile
[2023-07-07 05:25] LABS: Basophils % 0.4 %; Eosinophils # 0.5 10^3/uL (0.0-0.8); Eosinophils % 6.7 %; Hematocrit 36.6 % (37-53); Lymphocytes # 1.7 10^3/uL (0.8-4.8); Lymphocytes % 21.3 %; Mean Corpuscular HGB Conc 32.8 g/dL (30-55); Mean Corpuscular Hemoglobin 30.5 pg (27-33); Mean Corpuscular Volume 93.1 fl (82-101); Mean Platelet Volume 10.7 fL (7.4-10.4); Monocytes # 0.7 10^3/uL (0.2-0.9); Monocytes % 8.8 %; Neutrophils # 4.83 10^3/uL (1.8-7.7); Neutrophils % 62.3 %; Nucleated Red Blood Cells % 0 %; Platelet Count 139 10^3/cmm (157-399); Red Blood Count 3.93 10^6/uL (3.85-5.65); Red Cell Distribution Width 13.4 % (12.1-15.1); White Blood Count 7.75 10^3/uL (3.29-11.43)
[2023-07-07 05:44] LABS: Blood Urea Nitrogen 25 mg/dL (8-23); Calcium 8.8 mg/dL (8.5-10.5); Carbon Dioxide 20 mmol/L (22-29); Chloride 108 mmol/L (98-107); Glucose 132 mg/dL (65-115); Magnesium 1.7 mg/dL (1.7-2.3); Osmolality Calculated 296 mOsm/kg (285-295); Sodium 140 mmol/L (136-145)
--- NOTE | 2023-07-07 07:08 | P.PN_ITS ---
Subjective 2 Subjective: Postop day #1 status post dual-chamber pacemaker implantation yesterday evening. Nursing service reports no adverse events overnight. Mr. Byrne is awake and conversant this morning. Outer dressings were removed. There is modest dexter- incisional ecchymosis. No substantial evidence for fluid collection or incision dehiscence. Betadine and bordered gauze dressing reapplied. Left arm immobilizer removed. Nursing service reports pacemaker interrogation this morning revealed no evidence for malfunction. Vitals/I&O/Wt Last Vital Signs Temp 98.8 F 07/07/23 05:00 Pulse 68 07/07/23 06:00 Resp 22 H 07/07/23 05:00 BP 165/72 07/07/23 05:00 Pulse Ox 91 07/07/23 05:00 O2 Del Method Nasal Cannula 07/06/23 20:00 O2 Flow Rate 3 07/06/23 20:00 07/06/23 07/07/23 07/07/23 22:59 06:59 14:59 Intake Total 1178.333 / 1178.333 Output Total 850 / 850 1450 / 2300 Balance 328.333 / 328.333 -1450 / -1121.667 Weight last 48 hrs Weight 189 lb Weight 187 lb Weight 187 lb Weight 195 lb Physical Exam 2 Chest: OTHER: Modest dexter-incisional ecchymosis though no evidence for fluid collection. Incision line is clean, dry, and intact. Surgical dressing was removed. Betadine and bordered gauze dressing reapplied. Extremity: NARRATIVE EXTREMITY EXAM: Left upper extremity immobilizer removed. Urinary Catheter Management: Ruiz: Cath Placed During This Visit: yes Reason for Continuing Indwelling Catheter: Accurate Measurement of Urinary Output in Critically Ill Patients Urinary Catheter Date of Insertion: 07/06/23 Urinary Catheter Time of Insertion: 05:26 Data 07/07/23 04:44 07/07/23 04:44 A&P Assessment and plan (1) Status post cardiac pacemaker procedure: Postop day #1 status post dual-chamber pacemaker implantation. Disposition the patient at discretion of our hospitalist colleagues. Patient may follow-up in [facility] pacemaker clinic 1 week after discharge. Discharge instructions included. Attestations 2 Medical Necessity Statement*: Status post dual-chamber pacemaker implantation for Mobitz type II heart block with medically refractory, highly symptomatic bradycardia. Coding Level of Care Code Acute Code for Chg Fwd Diagnoses Status post cardiac pacemaker procedure Z95.0
--- NOTE | 2023-07-07 07:14 | P.PN_ITS ---
Subjective 2 Subjective: Patient doing well.S/p permanent pacemaker placement. Vitals/I&O/Wt Last Vital Signs Temp 98.8 F 07/07/23 05:00 Pulse 68 07/07/23 06:00 Resp 22 H 07/07/23 05:00 BP 165/72 07/07/23 05:00 Pulse Ox 91 07/07/23 05:00 O2 Del Method Nasal Cannula 07/06/23 20:00 O2 Flow Rate 3 07/06/23 20:00 07/06/23 07/07/23 07/07/23 22:59 06:59 14:59 Intake Total 1178.333 / 1178.333 Output Total 850 / 850 1450 / 2300 Balance 328.333 / 328.333 -1450 / -1121.667 Weight last 48 hrs Weight 189 lb Weight 187 lb Weight 187 lb Weight 195 lb Physical Exam 2 Narrative: GENERAL: Patient is alert NECK: No jugular vein distension. [] HEENT: No cyanosis. No icterus. No pallor. [] HEART: Regular S1 and S2. No murmur, rub or gallop. [] LUNGS: Diminished air entry CENTRAL NERVOUS SYSTEM: Grossly nonfocal. [] EXTREMITIES: Lower extremities with no edema bilaterally. 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 He is stable at this time. Can be transferred out of ICU. Thank you for involving us with care of this patient. We will continue to follow. Please call with questions. Attestations 2 Medical Necessity Statement*: Care expected to cross 2 midnights. 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
--- NOTE | 2023-07-07 07:36 | P.PN_ITS ---
Documented by User: THOMAS Dugan 07/07/23 08:10 Subjective 2 Subjective: Jordan Byrne is an 78-year-old male who presented to the ED 07/06/2023 with bradycardia in the 30s with 4-second pauses, syncope and collapse has occured regularly for months, but happened several times 24 hours preadmition. EKG so showed Mobitz type II AV block. Patient was treated with dual chamber pacemaker implantation yesterday evening without complication. Past medical history ITN superimposed on CKD thoracic back pain dyslipidemia BPH GERD diabetes mellitus type 2 hypertension chronic headache. Today patient is doing well, reports no pain, no syncope or lightheadedness and is lying comfortably in bed, and asked about breakfast. Vitals/I&O/Wt Last Vital Signs Temp 98.8 F 07/07/23 05:00 Pulse 68 07/07/23 06:00 Resp 22 H 07/07/23 05:00 BP 165/72 07/07/23 05:00 Pulse Ox 91 07/07/23 05:00 O2 Del Method Nasal Cannula 07/06/23 20:00 O2 Flow Rate 3 07/06/23 20:00 07/06/23 07/07/23 07/07/23 22:59 06:59 14:59 Intake Total 1178.333 / 1178.333 Output Total 850 / 850 1450 / 2300 Balance 328.333 / 328.333 -1450 / -1121.667 Weight last 48 hrs Weight 189 lb Weight 187 lb Weight 187 lb Weight 195 lb Physical Exam 2 Narrative: General alert and oriented to person place time and situation, patient is hard of hearing HEENT normocephalic atraumatic extraocular movements intact PERRL, no bruising in the neck, no JVD, patient cannot hear out of the left ear, and is hard of hearing on the right ear Cardiac paced heartbeat has normal S1 and S2 no murmurs rubs or gallops, radial and dorsal pedal pulses intact, no edema Pulmonary breath sounds normal no wheezes or crackles Abdomen deferred Ruiz noted Extremities well-perfused capillary refill brisk no erythema bruises or swelling, movement intact Neuro no focal deficit dementia hearing loss Urinary Catheter Management: Ruiz: Cath Placed During This Visit: yes Reason for Continuing Indwelling Catheter: Accurate Measurement of Urinary Output in Critically Ill Patients Urinary Catheter Date of Insertion: 07/06/23 Urinary Catheter Time of Insertion: 05:26 Data 07/07/23 04:44 07/07/23 04:44 A&P Assessment and plan (1) Mobitz type II block: Patient has Mobitz type II AV block, likely causing his syncope and collapse. He received placement of dual-chamber pacemaker without complication and is paced and perfused well now. Resume home medications (2) Hypertension: Patient's blood pressure runs 190/80 when awake 150/70 when asleep Hypertension is likely cause of his chronic headaches Resume home medications p.o. -Amlodipine 10 mg p.o. daily -Atenolol 50 mg p.o. twice daily -Hydralazine 50 mg p.o. 3 times daily -Hold lisinopril (3) Dyslipidemia: continue atorvastatin 40 mg p.o. daily late Continue coenzyme Q ten 100 mg p.o. daily (4) Type 2 diabetes mellitus: Resume metformin 1000 mg p.o. twice daily Resume empagliflozin 10 mg p.o. 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 to Qualifiers: Esophagitis presence: without esophagitis Qualified Code(s): K21.9 - Gastro-esophageal reflux disease without esophagitis (7) Acute kidney injury superimposed on CKD: Hydration Hold lisinopril Patient is being given carbohydrate controlled diet Check CK. Plan Other medical problems as listed in past medical history Patient is currently paced well. Resume home medications besides lisinopril Patient will be stepped down to CSU from ICU, and cleared for discharge today if there are no complications Full code SCDs for anticoagulation. Attestations 2 Medical Necessity Statement*: Patient is clear for discharge from the hospital today if he continues to have no complications. Coding Level of Care Code 06694 Diagnoses Mobitz type II block I44.1 Essential hypertension I10 Dyslipidemia E78.5 Type 2 diabetes mellitus without complication, without long-term current use of insulin E11.9 Diabetes mellitus complication status: without complication Diabetes mellitus correction insulin use: without correction use Syncope and collapse R55 Gastroesophageal reflux disease without esophagitis K21.9 Esophagitis presence: without esophagitis Acute kidney injury superimposed on CKD N17.9; N18.9 Time Spent (min) 26 Documented by User: Daniel Pierce MD 07/07/23 09:56 Subjective 2 Subjective: Jordan Byrne is an 78-year-old male who presented to the ED 07/06/2023 with bradycardia in the 30s with 4-second pauses, syncope and collapse has occured regularly for months, but happened several times 24 hours preadmition. EKG so showed Mobitz type II AV block. Patient was treated with dual chamber pacemaker implantation 07/06 without complication. 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 Today patient is doing well, reports no pain, no syncope or lightheadedness and is lying comfortably in bed, and asked about breakfast. Medications: Reviewed: Yes Physical Exam 2 Narrative: General alert and oriented to person place time and situation, patient is hard of hearing HEENT normocephalic atraumatic extraocular movements intact PERRL, no bruising in the neck, no JVD, patient cannot hear out of the left ear, and is hard of hearing on the right ear Cardiac paced heartbeat has normal S1 and S2 no murmurs rubs or gallops, radial and dorsal pedal pulses intact, no edema. Pacemaker site with dressing left chest, clean and dry Pulmonary breath sounds normal no wheezes or crackles Abdomen deferred Ruiz noted Extremities well-perfused capillary refill brisk no erythema bruises or swelling, movement intact Neuro no focal deficit dementia hearing loss Urinary Catheter Management: Ruiz: Cath Placed During This Visit: yes Data 07/07/23 04:44 07/07/23 04:44 A&P Assessment and plan (1) Mobitz type II block: Patient has Mobitz type II AV block, likely causing his syncope and collapse. He received placement of dual-chamber pacemaker without complication and is paced and perfused well now. Resume home medications PT ordered for evaluation of patient with need to use walker, limited use of left upper extremity following pacemaker (2) Hypertension: Patient's blood pressure runs 190/80 when awake 150/70 when asleep Hypertension is likely cause of his chronic headaches Resume home medications p.o. -Amlodipine 10 mg p.o. daily -Hydralazine 50 mg p.o. 3 times daily -Hold lisinopril Initiate metoprolol 25 mg twice daily (3) Dyslipidemia: continue atorvastatin 40 mg p.o. 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 Recheck CBC and BMP in the morning Plan History of dementia. He is on quite a significant dose of amitriptyline. This was reduced to 50 mg and if tolerated should be discharged on the lower dose. Other medical problems as listed in past medical history May transfer to CSU Full code SCDs for anticoagulation. Attestations 2 Medical Necessity Statement*: Needs continued hospitalization for close monitoring following pacemaker placement, following renal function, initiation of blood pressure medication Diagnoses Mobitz type II block I44.1 Essential hypertension I10 Dyslipidemia E78.5 Type 2 diabetes mellitus without complication, without long-term current use of insulin E11.9 Diabetes mellitus complication status: without complication Diabetes mellitus correction insulin use: without correction use Syncope and collapse R55 Gastroesophageal reflux disease without esophagitis K21.9 Esophagitis presence: without esophagitis Acute kidney injury superimposed on CKD N17.9; N18.9 Time Spent (min) 26
[2023-07-07 07:47] LABS: Glucose Point of Care 136 mg/dL (70-110)
[2023-07-07] MEDS: amlodipine 10 mg Tablet PO (07:59)
[2023-07-07] MEDS: hyDRALAzine 50 mg Tablet PO ×3 (08:00→19:53)
[2023-07-07] MEDS: gabapentin 100 mg Capsule PO ×3 (08:00→19:54)
[2023-07-07] MEDS: atorvastatin 40 mg Tablet PO (08:00)
[2023-07-07] MEDS: pantoprazole DR 40 mg Tablet PO (08:00)
[2023-07-07] MEDS: chlorhexidine gluconate 4% Btl 118 mL 1 APPLIC TOPICAL (08:02)
[2023-07-07] MEDS: metoprolol tartrate 25 mg Tablet PO ×2 (08:02→19:53)
[2023-07-07 11:48] LABS: Glucose Point of Care 137 mg/dL (70-110)
--- NOTE | 2023-07-07 12:52 | PC.SOCIAL ---
IMM Update pg 2 of IMM updated and reviewed w/ patient. Copy provided and copy dated, initialed and placed in chart.
--- NOTE | 2023-07-07 14:42 | PC.NURSE ---
received from icu via w/c into room 106 at 1415.oriented to room environment.left upper chest drsg is dry and intact.no hematoma noted.left arm immobilizer on.instructed to please notify staff if must get up,or has any pain,sob,or for any concerns at all.pt verb understanding of instructions
[2023-07-07 16:55] LABS: Glucose Point of Care 166 mg/dL (70-110)
[2023-07-07] MEDS: insulin lispro 100 unit/1 mL SUBCUT (17:22)
[2023-07-07] MEDS: amitriptyline 25 mg Tablet 50 MG PO (19:53)
[2023-07-07 21:23] LABS: Glucose Point of Care 298 mg/dL (70-110)
[2023-07-08] VITALS: BP 143/88; PULSE 67; RESP 18; TEMP 36.7; O2SAT 93
[2023-07-08 03:43] LABS: Basophils % 0.3 %; Eosinophils # 0.5 10^3/uL (0.0-0.8); Hematocrit 34.2 % (37-53); Lymphocytes # 1.6 10^3/uL (0.8-4.8); Lymphocytes % 24.8 %; Mean Corpuscular HGB Conc 33.6 g/dL (30-55); Mean Corpuscular Volume 92.2 fl (82-101); Mean Platelet Volume 10.2 fL (7.4-10.4); Monocytes # 0.6 10^3/uL (0.2-0.9); Monocytes % 9.4 %; Neutrophils # 3.82 10^3/uL (1.8-7.7); Neutrophils % 58.2 %; Nucleated Red Blood Cells % 0 %; Platelet Count 118 10^3/cmm (157-399); Red Blood Count 3.71 10^6/uL (3.85-5.65); Red Cell Distribution Width 13.2 % (12.1-15.1); White Blood Count 6.57 10^3/uL (3.29-11.43)
[2023-07-08 04:00] VITALS: BP 168/82; PULSE 67; RESP 15; TEMP 36.6; O2SAT 90
[2023-07-08 04:05] LABS: Anion Gap 12.8 (5-19); Blood Urea Nitrogen 20 mg/dL (8-23); Calcium 8.6 mg/dL (8.5-10.5); Carbon Dioxide 22 mmol/L (22-29); Chloride 110 mmol/L (98-107); Glucose 136 mg/dL (65-115); Osmolality Calculated 297 mOsm/kg (285-295); Potassium 3.8 mmol/L (3.5-5.1); Sodium 141 mmol/L (136-145)
[2023-07-08 06:00] VITALS: PULSE 65
[2023-07-08 06:39] LABS: Glucose Point of Care 134 mg/dL (70-110)
[2023-07-08 07:15] VITALS: BP 141/83; PULSE 78; RESP 22; TEMP 36.6; O2SAT 93
--- NOTE | 2023-07-08 08:05 | PM.PN ---
Subjective Subjective: Patient is doing well. Vitals/I&O/Wt Last Vital Signs Temp 97.8 F 07/08/23 07:15 Pulse 78 07/08/23 07:15 Resp 22 H 07/08/23 07:15 BP 141/83 07/08/23 07:15 Pulse Ox 93 07/08/23 07:15 O2 Del Method Room Air 07/08/23 07:15 O2 Flow Rate 3 07/06/23 20:00 07/07/23 07/08/23 07/08/23 22:59 06:59 14:59 Intake Total 120 / 470 Output Total 0 / 850 600 / 1450 620 / 620 Balance 120 / -380 -600 / -980 -620 / -620 Weight last 48 hrs Weight 195 lb Weight 189 lb Physical Exam Narrative: GENERAL: Patient is alert NECK: No jugular vein distension. [] HEENT: No cyanosis. No icterus. No pallor. [] HEART: Regular S1 and S2. No murmur, rub or gallop. [] LUNGS: Diminished air entry CENTRAL NERVOUS SYSTEM: Grossly nonfocal. [] EXTREMITIES: Lower extremities with no edema bilaterally. 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 Pacemaker functioning appropriately. Stable to be discharged from cardiology standpoint. Attestations Medical Necessity Statement*: Care expected to cross 2 midnights. Coding Level of Care Code Acute Code for [facility] Diagnoses Mobitz type II block I44.1 Dyslipidemia E78.5 Essential hypertension I10 Type 2 diabetes mellitus without complication, without long-term current use of insulin E11.9 Diabetes mellitus [facility] insulin use: without [facility] use Diabetes mellitus complication status: without complication Syncope R55 Syncope type: unspecified
[2023-07-08] MEDS: atorvastatin 40 mg Tablet PO (08:29)
[2023-07-08] MEDS: gabapentin 100 mg Capsule PO (08:29)
[2023-07-08] MEDS: amlodipine 10 mg Tablet PO (08:29)
[2023-07-08] MEDS: pantoprazole DR 40 mg Tablet PO (08:29)
[2023-07-08] MEDS: hyDRALAzine 50 mg Tablet PO (08:29)
[2023-07-08] MEDS: metoprolol tartrate 25 mg Tablet PO (08:32)
--- NOTE | 2023-07-08 10:11 | PC.OT ---
PT DECLINES OT TX TODAY 2/3; WILL ATTEMPT AT LATER TIME
--- NOTE | 2023-07-08 10:31 | P.DS_ITS ---
Discharge Providers Date of Admission: 07/06/23 03:26 Date of Discharge: July 08, 2023 Attending Provider at Admission: Chino Cai MD Attending Provider at Discharge: Daniel Pierce MD Primary Care Provider: Kem Briggs DO Diagnoses at Discharge Discharge Diagnosis (1) Mobitz type II block: Status: Acute (2) Dyslipidemia: Status: Acute (3) Hypertension: Status: Acute (4) Type 2 diabetes mellitus: Status: Acute Qualifiers: Diabetes mellitus tobacco classer insulin use: without tobacco classer use Diabetes mellitus complication status: without complication Qualified Code(s): E11.9 - Type 2 diabetes mellitus without complications (5) Syncope: Status: Acute Qualifiers: Syncope type: unspecified Qualified Code(s): R55 - Syncope and collapse Reason for Visit Reason for Visit: bradycardia Hospital Course Hospital Course 78-year-old male who was admitted to the hospital for management evaluation of syncope, syncope was related to bradycardia, Dr. Kerr was consulted for temporary pacemaker placement in the ER at the time of admission, permanent pacemaker placement Dr. Sherwood was consulted, 07/06/23 dual-chamber pacemaker implantation,patient is hemodynamically stable after pacemaker placement, no active complaints, he is ready to be discharged home on prophylactic oral antibiotics, patient is not confused anymore encephalopathy was likely related to bradycardia he does have chronic kidney disease creatinine seems around baseline at the time of discharge, echo shows preserved ejection fraction Physical Exam Narrative: Awake and alert Pacemaker site no active drainage GCS 15 awake and alert Hard of hearing S1, S2 paced rhythm Urinary Catheter Management: Ruiz: Cath Placed During This Visit: yes, but has since been removed by the nurse Reason for Continuing Indwelling Catheter: Accurate Measurement of Urinary Output in Critically Ill Patients Urinary Catheter Date of Insertion: 07/06/23 Urinary Catheter Time of Insertion: 05:26 Date Urinary Catheter Removed: 07/07/23 Time Urinary Catheter Discontinued: 14:40 Discharge Data Studies Completed and Pending Completed Studies During Hospitalization Category Date Time Status CT head wo con* [id number] Routine Cat Scan 07/06/23 03:34 Completed CXRP [XR chest 1V portable [id number]] Routine Exams 07/06/23 19:02 Completed XR chest 1V portable [id number] Stat Exams 07/06/23 03:29 Completed CV. echo complete* [id number] Routine Ultrasound 07/06/23 03:28 Completed Pending at discharge Category Date Time Status [employer] request for service Stat Exams 07/06/23 02:29 Taken Radiology Impressions Chest X-Ray 07/06/23 19:02 IMPRESSION: 1. There is a new left-sided cardiac pacemaker device with [address] 2. No pneumothorax. Laboratory Results WBC 6.57 10^3/uL (3.29-11.43) 07/08/23 03:24 RBC 3.71 10^6/uL (3.85-5.65) L 07/08/23 03:24 Hgb 11.50 g/dL (11.27-16.99) 07/08/23 03:24 Hct 34.2 % (37-53) L 07/08/23 03:24 MCV 92.2 fl (82-101) 07/08/23 03:24 MCH 31.0 pg (27-33) 07/08/23 03:24 MCHC 33.6 g/dL (30-55) 07/08/23 03:24 RDW 13.2 % (12.1-15.1) 07/08/23 03:24 Plt Count 118 10^3/cmm (157-399) L 07/08/23 03:24 MPV 10.2 fL (7.4-10.4) 07/08/23 03:24 Neut % (Auto) 58.2 % 07/08/23 03:24 Lymph % (Auto) 24.8 % 07/08/23 03:24 Republic % (Auto) 9.4 % 07/08/23 03:24 Eos % (Auto) 7.0 % 07/08/23 03:24 Baso % (Auto) 0.3 % 07/08/23 03:24 Neut # (Auto) 3.82 10^3/uL (1.8-7.7) 07/08/23 03:24 Lymph # (Auto) 1.6 10^3/uL (0.8-4.8) 07/08/23 03:24 Republic # (Auto) 0.6 10^3/uL (0.2-0.9) 07/08/23 03:24 Eos # (Auto) 0.5 10^3/uL (0.0-0.8) 07/08/23 03:24 Baso # (Auto) 0.0 10^3/uL (0.0-0.1) 07/08/23 03:24 Nucleated RBC % (auto) 0 % 07/08/23 03:24 Nucleated RBCs # 0.0 /100WBC 07/08/23 03:24 ESR 2 mm/hr (0-10) 07/06/23 01:47 PT 14.70 SECONDS (12.1-14.9) 07/06/23 01:47 INR 1.11 (0.8-1.2) 07/06/23 01:47 Sodium 141 mmol/L (136-145) 07/08/23 03:24 Potassium 3.8 mmol/L (3.5-5.1) 07/08/23 03:24 Chloride 110 mmol/L (98-107) H 07/08/23 03:24 Carbon Dioxide 22 mmol/L (22-29) 07/08/23 03:24 Anion Gap 12.8 (5-19) 07/08/23 03:24 BUN 20 mg/dL (8-23) 07/08/23 03:24 Creatinine 1.5 mg/dL (0.7-1.2) H 07/08/23 03:24 GFR Calculation Not Reportable 07/08/23 03:24 Glucose 136 mg/dL (65-115) H 07/08/23 03:24 POC Glucose 134 mg/dL (70-110) H 07/08/23 06:26 Calculated Osmolality 297 mOsm/kg (285-295) H 07/08/23 03:24 Calcium 8.6 mg/dL (8.5-10.5) 07/08/23 03:24 Magnesium 1.7 mg/dL (1.7-2.3) 07/07/23 04:44 Total Bilirubin 0.2 mg/dL (0.15-1.2) 07/06/23 01:47 AST 12 U/L (0-40) 07/06/23 01:47 ALT 8 U/L (0-41) 07/06/23 01:47 Alkaline Phosphatase 60 U/L (40-130) 07/06/23 01:47 Creatine Kinase 77 U/L (39-308) 07/06/23 08:14 Troponin T Baseline 32 ng/L (0-15) H 07/06/23 01:47 Troponin T 120 Minute 29.44 ng/L (0-15) H 07/06/23 04:05 Delta Troponin T -2.56 ABS# (0-10) L 07/06/23 04:05 Troponin T Hi Sens 6Hr 35.54 ng/L (0-15) H 07/06/23 08:14 Troponin T Hi Sens 6Hr Delta 3.54 ng/L (0-12) 07/06/23 08:14 C-Reactive Protein 10.2 mg/L (0.0-4.9) H 07/06/23 01:47 Total Protein 5.8 g/dL (6.6-8.7) L 07/06/23 01:47 Albumin 3.7 g/dL (3.5-5.2) 07/06/23 01:47 Globulin 2.1 g/dL (1.3-4.6) 07/06/23 01:47 Procalcitonin 0.08 ng/mL (0-0.5) 07/06/23 01:47 TSH 4.10 uIU/mL (0.27-4.20) 07/06/23 01:47 Urine Color Yellow (Yellow) 07/06/23 04:26 Urine Appearance Clear (CLEAR) 07/06/23 04:26 Urine pH 5 (5-7) 07/06/23 04:26 Ur Specific Heath 1.015 (1.005-1.030) 07/06/23 04:26 Urine Protein Trace (Negative) 07/06/23 04:26 Urine Glucose (UA) 4+ (Normal) H 07/06/23 04:26 Urine Ketones Negative (Negative) 07/06/23 04:26 Urine Blood Neg (Negative) 07/06/23 04:26 Urine Nitrate Negative (Negative) 07/06/23 04:26 Urine Bilirubin Neg (Negative) 07/06/23 04:26 Urine Urobilinogen Neg mg/dL (Negative) 07/06/23 04:26 Ur Leukocyte Esterase Negative (Negative) 07/06/23 04:26 Urine RBC 5-10 /hpf (0-2) H 07/06/23 04:26 Urine WBC None /hpf (0-5) 07/06/23 04:26 Ur Squamous Epith Cells 0-4 /hpf (0-5) H 02/01/24 04:26 Amorphous Sediment Not Reportable 07/06/23 04:26 Urine Bacteria Trace /hpf (NONE) 07/06/23 04:26 Urine Mucus 2+ /hpf 07/06/23 04:26 Vitals Last Vital Signs Temp 97.8 F 07/08/23 07:15 Pulse 78 07/08/23 07:15 Resp 22 H 07/08/23 07:15 BP 141/83 07/08/23 07:15 Pulse Ox 93 07/08/23 07:15 O2 Del Method Room Air 07/08/23 08:00 O2 Flow Rate 3 07/06/23 20:00 Discharge Plan Discharge Patient Disposition: Home Condition: Stable Prescriptions: New metoprolol tartrate 25 mg Tablet 12.5 mg PO BID@0900,2100 Qty: 60 0RF doxycycline hyclate 100 mg tablet 100 mg PO BID 7 Days Qty: 14 0RF Continued (DME) DME: [facility] See Rx Instructions .ROUTE .MEDSUPPLY Qty: 1 0RF Rx Instructions: As directed, with seat multivitamin Tablet 1 tab PO DAILY coenzyme Q10 [CoQ-10] 100 mg Capsule 100 mg PO DAILY omeprazole 40 mg capsule,delayed release(DR/EC) 40 mg PO DAILY amlodipine 10 mg tablet 10 mg PO DAILY amitriptyline 150 mg tablet 150 mg PO BEDTIME atorvastatin 40 mg tablet 40 mg PO DAILY Fish Oil Concentrate 1,000 mg Capsule 1,000 mg PO DAILY lisinopril 20 mg tablet 20 mg PO BID hydralazine 50 mg tablet 50 mg PO TID lysine 500 mg Tablet 500 mg PO DAILY Jardiance 10 mg tablet 10 mg PO DAILY Discontinued metformin 1,000 mg tablet 1,000 mg PO BID 90 Days Qty: 180 1RF atenolol 50 mg tablet 50 mg PO BID Qty: 60 0RF Discharge Orders: Discharge Order (Routine); Ordered 07/08/23 Ordered By: Angel Bocanegra Other Ambulatory Orders: DME: [facility] (Order) Location: None Selected Ordered By: Daniel Pierce Referrals: [facility] [Provider Group] - 1 week (Pacemaker clinic) Ina Martin MD [Physician] - Patient Instructions: Pacemaker (DC), Opioid Safety Activity Restrictions/Additional Instructions: May remove bandage in 2 days May begin daily showers in 3 days Dry incision carefully after showers. May re-cover if desired to prevent irritation from clothing. No swimming or tub baths x 2 weeks No ointments on incision Report drainage, redness, heat, fever, increased pain, or swelling to clinic Do not raise left hand above eye level for 1 week Do not take metformin because of chronic kidney disease, Discharge Attestations Time Spent in Discharge Care*: greater than 30 min Quality Metrics Clinical Quality Measures [ No reported AMI, CVA or VTE this stay] Coding Level of Care Code Acute Code for g Fwd Diagnoses Mobitz type II block I44.1 Dyslipidemia E78.5 Essential hypertension I10 Type 2 diabetes mellitus without complication, without long-term current use of insulin E11.9 Diabetes mellitus tobacco classer insulin use: without tobacco classer use Diabetes mellitus complication status: without complication Syncope R55 Syncope type: unspecified
[2023-07-08 11:22] VITALS: BP 149/78; PULSE 70; RESP 22; TEMP 36.5; O2SAT 94
[2023-07-08 11:49] LABS: Glucose Point of Care 198 mg/dL (70-110)
[2023-07-08 12:04] VITALS: BP 149/78; PULSE 70; RESP 22; TEMP 36.5; O2SAT 94
[2023-07-08] MEDS: insulin lispro 100 unit/1 mL SUBCUT (12:35)
--- NOTE | 2023-07-08 14:22 | PC.NURSE ---
discharge instructionss given and explained to pt and spouse.they verb understanding of instructions.dischargedd via w/c to exit at this time.spouse to drive pt home
== END 2023-07-08 14:28 | disposition home or self-care (01) | DRG 243 ==
LOC: ER 02:15 → CCL 02:30 → ICU 03:26 → CSU 07-07 14:10
PROVIDERS: Internal Medicine; Thoracic Surgery (Cardiothoracic Vascular Surgery); Admitting Provider Family Medicine; Emergency Provider Emergency Medicine; PCP Family Medicine; Visit Provider Internal Medicine
PROC: 5A1223Z Performance of Cardiac Pacing, Continuous (ICD-10-PCS; principal; 2023-07-06 02:45)
PROC: 0JH606Z Insertion of Pacemaker, Dual Chamber into Chest Subcutaneous Tissue and Fascia, Open Approach (ICD-10-PCS; principal; 2023-07-06 15:00)
DX: I44.1 Atrioventricular block, second degree (principal); G93.40 Encephalopathy, unspecified; N17.9 Acute kidney failure, unspecified; I13.0 Hypertensive heart and chronic kidney disease with heart failure and stage 1 through stage 4 chronic kidney disease, or unspecified chronic kidney disease; I50.30 Unspecified diastolic (congestive) heart failure; R00.1 Bradycardia, unspecified; E78.5 Hyperlipidemia, unspecified; F03.90 Unspecified dementia, unspecified severity, without behavioral disturbance, psychotic disturbance, mood disturbance, and anxiety; R51.9 Headache, unspecified; Z86.73 Personal history of transient ischemic attack (TIA), and cerebral infarction without residual deficits; K21.9 Gastro-esophageal reflux disease without esophagitis; H91.93 Unspecified hearing loss, bilateral; N40.0 Benign prostatic hyperplasia without lower urinary tract symptoms; N18.9 Chronic kidney disease, unspecified; E11.22 Type 2 diabetes mellitus with diabetic chronic kidney disease; Z79.84 Long term (current) use of oral hypoglycemic drugs
CPT/HCPCS: 33210; 36415; 36416; 51702; 70450; 71045; 76000; 80048; 80053; 81001; 82550; 82962; 83735; 84145; 84443; 84484; 85025; 85610; 85651; 86140; 93005; 93306; 94664; 96365; 96372; 96374; 96375; 96376; 97116; 97162; 97165; 97530; 99285; C1769; C1779; C1786; C1894; C1898; C9113; J0360; J0690; J1644; J1815; J2250; J2704; J3010; J7030

== ENCOUNTER → 2023-08-07 12:58 | Outpatient (BNVA) | payer MEDICARE, SELFPAY | PROVIDERS: PCP Family Medicine; Visit Provider Nurse Practitioner Family | DX: Z95.0 Presence of cardiac pacemaker (principal) | CPT/HCPCS: 99024; 99213 ==

== ENCOUNTER 2023-11-27 01:37 | Emergency (ER) | payer MEDICARE, SELFPAY ==
[2023-11-27 02:04] VITALS: BP 189/101; PULSE 80; RESP 21; TEMP 36.7; O2SAT 95; BMI 24.8
--- NOTE | 2023-11-27 02:04 | ECG_ITS ---
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 Measurements Intervals [place] Rate: 77 P: 85 AL: 183 QRS: -76 QRSD: 210 T: 97 QT: 453 QTc: 516 Interpretive Statements ELECTRONIC VENTRICULAR PACEMAKER ABNORMAL RHYTHM ECG Compared to ECG 07/06/2023 04:17:23 Sinus bradycardia no longer present First degree AV block no longer present Intraventricular conduction delay no longer present Electronically Signed On 11-27-2023 14:46:49 CDT by Krystian Leal M.D. [id number]
--- NOTE | 2023-11-27 02:14 | XRR_ITS ---
PROCEDURE INFORMATION: Exam: XR Abdomen Exam date and time: 11/27/2023 2:31 AM Age: 78 years old Clinical indication: Abdominal pain; Localized; Prior surgery; Surgery date: 6+ months; Surgery type: Pacer. Gb. Umbilical hernia repair; Patient HX: C/O upper abd and back pain with constipation. ; Additional info: Abd pain/constipation TECHNIQUE: Imaging protocol: Radiologic exam of the abdomen. Views: Frontal supine view of the abdomen. 1 View. COMPARISON: CR XR chest 1V portable [id number] 07/06/2023 7:19 PM FINDINGS: Gastrointestinal tract: No dilated bowel to suggest obstruction. Organs: Calcifications overlying both renal regions suspicious for intrarenal calculi. 7 x 12 mm calcification to the right of the L3 vertebral body could represent a proximal right ureteral calculus. Please correlate clinically. Bones/joints: Mild to moderate degenerative changes in the lower lumbar spine. XR/XR abdomen 1V* [id number] IMPRESSION: 1. No definite evidence for bowel obstruction. 2. Other details discussed above.
[2023-11-27 02:21] VITALS: RESP 18; O2SAT 97
[2023-11-27 02:34] LABS: Basophils % 0.5 %; Eosinophils # 0.5 10^3/uL (0.0-0.8); Eosinophils % 7.5 %; Hematocrit 38.7 % (37-53); Lymphocytes % 29.3 %; Mean Corpuscular HGB Conc 31.3 g/dL (30-55); Mean Corpuscular Hemoglobin 28.1 pg (27-33); Mean Platelet Volume 9.3 fL (7.4-10.4); Monocytes # 0.7 10^3/uL (0.2-0.9); Monocytes % 10.4 %; Neutrophils # 3.46 10^3/uL (1.8-7.7); Nucleated Red Blood Cells % 0 %; Platelet Count 206 10^3/cmm (157-399); White Blood Count 6.65 10^3/uL (3.29-11.43)
--- NOTE | 2023-11-27 02:50 | CTR_ITS ---
PROCEDURE INFORMATION: Exam: CT Abdomen And Pelvis With Contrast Exam date and time: 11/27/2023 3:12 AM Age: 78 years old Clinical indication: Abdominal pain; Prior surgery; Surgery date: 6+ months; Surgery type: Pacer. Gb. Umbilical hernia repair. Patient HX: C/O epigastric pain with constipation. TECHNIQUE: Imaging protocol: Computed tomography of the abdomen and pelvis with contrast. Radiation optimization: All CT scans at this facility use at least one of these dose optimization techniques: automated exposure control; mA and/or kV adjustment per patient size (includes targeted exams where dose is matched to clinical indication); or iterative reconstruction. Contrast material: OMNI 350; Contrast volume: 75 ml; Contrast route: INTRAVENOUS (IV); COMPARISON: CT Thorax 07/26/2021 2:40 PM RADIATION DOSE METRICS: Total DLP (mGy-cm): 644.73 FINDINGS: Lungs: Areas of suspected parenchymal scarring and atelectasis in the lower lungs. No pleural fluid. Heart: Suspect mild to moderate cardiomegaly. Coronary arteries: Prominent coronary artery calcifications. Liver: See Gallbladder and biliary ducts finding. Gallbladder and biliary ducts: Prior cholecystectomy, no significant biliary tree dilation. There is some air in the biliary tree in the left lobe of the liver, probably related to prior sphincterotomy. This is less prominent than on the comparison CT thorax. Pancreas: Unremarkable. Spleen: Unremarkable. Adrenal glands: Unremarkable. Kidneys and ureters: Four right intrarenal calculi ranging from 4-10 mm in size. There is a 13 x 8 mm proximal right ureteral calculus, about 2 cm inferior to the UPJ. No significant right hydronephrosis at this time. 9 mm left intrarenal calculus. No left hydronephrosis or visible left ureteral calculus. Several probable renal cysts bilaterally, most are too small to accurately characterize by CT. There is a 20 mm possible cyst in the posterior mid right kidney, however this measures somewhat greater than water attenuation. A proteinaceous cyst is likely, however a solid mass/neoplasm is not entirely excluded. The comparison thorax CT does not include this area. Eventual comparison with any other available prior exams may be helpful. Confirmation of cystic nature with ultrasound or MRI would be useful to exclude a solid mass, if not already performed. Stomach and bowel: No significant bowel distention. There is diverticulosis, very prominent in the sigmoid colon. No definite CT evidence of diverticulitis, no significant surrounding inflammation. There is some diffuse mucosal/wall thickening throughout the sigmoid colon. This may represent muscular hypertrophy related to the diverticulosis. Some form of colitis or neoplasm is felt significantly less likely. Please correlate clinically. The stomach appears somewhat distended at the time of scanning. Possibility of slightly thickened mucosa/wall in the distal antrum of the stomach. This is a nonspecific appearance, and could well be transient on CT, but could also represent evidence for gastritis or peptic ulcer disease. Please correlate clinically. Appendix: The appendix is visualized and appears normal. Intraperitoneal space: No free intraperitoneal air, or ascites. Vasculature: Prominent aortic and other vascular calcifications. No evidence for abdominal aortic aneurysm. Lymph nodes: No retroperitoneal adenopathy. Urinary bladder: No visible calculus in the urinary bladder. Possible 10 mm diverticulum arising from the anterior right aspect of the urinary bladder. Reproductive: Prostate enlargement with transverse diameter of 5.3 cm. Correlation with PSA levels may be useful to help exclude prostate malignancy. Bones/joints: Mild to moderate degenerative disc changes and facet joint arthritis throughout the lumbar spine, with severe disc space narrowing at L5-S1. There is bilateral L5 spondylolysis, with grade 1 spondylolisthesis. Moderate bulging/protruding disc L2-L3. Soft tissues: No significant acute finding. CT/CT abdomen pelvis w con* [id number] IMPRESSION: 1. 13 x 8 mm proximal right ureteral calculus, see additional details above. 2. No significant right hydronephrosis at this time. 3. Bilateral intrarenal calculi. 4. Several probable renal cysts, see above discussion/recommendation. 5. Prostate enlargement, details above. 6. Diverticulosis, without definite evidence of diverticulitis. See above discussion. 7. Somewhat distended stomach. Possible thickened mucosa/wall in the distal stomach, see above discussion. 8. Normal appendix. 9. Other findings discussed above. COMMENTS: Consistent with the [employer]'s Incidental Findings Committee white paper (J Am Keiko Radiol 2018): Any incidental renal lesion less than 1 cm or classified as too small to characterize, or any incidental cystic renal lesion characterized as simple-appearing, is likely benign. No follow-up imaging is recommended for these lesions per consensus recommendations based on imaging criteria.
[2023-11-27 02:52] LABS: Troponin(5th) Baseline 32 ng/L (0-15)
[2023-11-27 02:55] LABS: Alanine Aminotransferase 9 U/L (0-41); Albumin Level 3.8 g/dL (3.5-5.2); Alkaline Phosphatase 60 U/L (40-130); Anion Gap 15.2 (5-19); Aspartate Amino Transferase 13 U/L (0-40); Blood Urea Nitrogen 30 mg/dL (8-23); Calcium 8.6 mg/dL (8.5-10.5); Carbon Dioxide 22 mmol/L (22-29); Chloride 109 mmol/L (98-107); Creatinine Clr Calc Pharmacy 30.2132; Globulin 2.3 g/dL (1.3-4.6); Glucose 163 mg/dL (65-115); Osmolality Calculated 304 mOsm/kg (285-295); Potassium 4.2 mmol/L (3.5-5.1); Sodium 142 mmol/L (136-145); Total Bilirubin 0.2 mg/dL (0.15-1.2); Total Protein 6.1 g/dL (6.6-8.7)
[2023-11-27] MEDS: morphine 4 mg/mL SDV 1 mL 2 MG IVP (02:57)
[2023-11-27] MEDS: ondansetron 2 mg/ML SDV 2 mL 4 MG IVP (02:57)
[2023-11-27] MEDS: lidocaine 2% viscous 15 ML, aluminum-mag hydrox-simethicon 30 ML, sucralfate oral liq 1 GM PO (02:57)
[2023-11-27 03:08] LABS: Lipase 84 U/L (13-60)
[2023-11-27] MEDS: iohexol 350 mg/mL 500 mL Btl (per mL) IV (03:14)
--- NOTE | 2023-11-27 03:59 | ED_ITS ---
HPI - Back Pain/Injury 2 General: Chief Complaint: Back Pain/Injury Stated Complaint: stomach rib back pain bp high Time Seen by Provider: 11/27/23 02:35 History of Present Illness: 78-year-old male complaining of epigastr ic pain in the bandlike fashion around his lower rib cage. He has had this for several days. His doctor told him it may be constipation. He has had bowel movements without any improvement. No fever. He vomited once. No blood in the stool. He has had cholecystectomy in the past as well as hernia surgeries. Associated symptoms: Deny chills or fever(s) Review of Systems 2 Const: Denies: fever(s), chills or body aches Eyes: Denies: change in vision Card: Denies: chest pain or palpitations Resp: Denies: dyspnea, productive cough, non-productive cough or wheezing GI: Denies: hematochezia Skin/Breast: Denies: rash Neuro: Denies: headache(s), weakness in extremities, dizziness or confusion PFSH ED 2 PFSH: Medical History Pacemaker Medtronic dual chamber 07/06/2023 Acute kidney injury superimposed on CKD Syncope and collapse Syncope Mobitz type II block Acute thoracic back pain Dyslipidemia BPH loc w urin obs/LUTS Weight loss, non-intentional Acquired deafness of both ears History of stroke GERD (gastroesophageal reflux disease) Chronic headache Type 2 diabetes mellitus Hypertension Surgical History Status post cardiac pacemaker procedure History of colonoscopy <10 yrs History of knee surgery left (x4) History of tonsillectomy H/O umbilical hernia repair History of cholecystectomy Family History Brother Cancer Skin Cancer Social History Smoking and tobacco/nicotine status: never used tobacco/nicotine Alcohol intake: never Substance/Drug Use: never Physical Exam 2 Const: COMMON NORMALS: no acute distress GENERAL APPEARANCE: cooperative; not ill appearing and not frail appearing HENMT: COMMON NORMALS: normocephalic, atraumatic and Normal external nose present HEAD & SCALP: normocephalic and atraumatic FACE & SINUS: normal facial exam and face symmetric NOSE: Normal external nose present Eye: COMMON NORMALS: Equal, round and reactive pupils present and EOMs intact bilaterally PUPIL: Yes Equal, round and reactive pupils present Neck/C-Spine: GENERAL: Yes trachea midline Chest: CHEST: Yes Symmetrical chest wall rise Resp: COMMON NORMALS: normal respiratory effort, No retractions, No use of accessory muscles and clear to auscultation bilaterally AUSCULTATION: clear to auscultation bilaterally Cardio: COMMON NORMALS: regular rate and regular rhythm RATE: regular rate RHYTHM: regular rhythm GI: COMMON NORMALS: Soft to palpation INSPECTION: Yes normal to inspection AUSCULTATION: Yes Hyperactive bowel sounds present PALPATION: Yes Soft to palpation, Yes Tenderness to palpation present (GI) (Diffuse) and Yes Guarding due to palpation present (GI) Extremity: COMMON NORMALS: no pedal edema Neuro: TONE COMA SCALE: document GCS findings Tone coma scale eye opening: Spontaneous Cartwright coma scale verbal response: Orientated Cartwright coma scale motor response: Obey commands Cartwright coma scale total score: 15 S ENSORY EXAM: Yes extremities (intact) Psych: COMMON NORMALS: speech normal SPEECH: Yes normal speech Skin: COMMON NORMALS: no rashes or lesions noted GENERAL SKIN EXAM: no rashes or lesions noted Course 2 Vital Signs: Vital signs: Vital Signs Temperature 98.1 F 11/27/23 02:04 Pulse Rate 80 11/27/23 05:39 Respiratory Rate 18 11/27/23 05:39 Blood Pressure 180/89 11/27/23 05:39 Pulse Oximetry 92 11/27/23 05:39 Oxygen Delivery Me thod Room Air 11/27/23 05:39 MDM - Back Pain/Injury Medical Decision Making White blood cell count is 6.7. Hemoglobin is 12. Creatinine is 2.2 which is near his baseline. CRP is only 3. Lipase is 84. CT scan of the abdomen is pending. CT scan reveals multiple findings including a 13 x 8 mm proximal right ureteral calculus, but no hydronephrosis. His pain is more on the left than the right. He does have distended stomach and thickened mucosal wall in the stomach consistent with gastritis. This is likely the cause of his pain. He will be treated with increasing doses of omeprazole, sucralfate. Short course of pain medication in the meantime. Outpatient urology referral for the stone, which is likely a much more chronic problem. Close outpatient follow-up with his PCP. Stable for discharge. Return for new or worsening symptoms. Labs 11/27/23 02:28 11/27/23 02:28 Radiology Impressions Abdomen X-Ray 11/27/23 02:14 IMPRESSION: 1. No definite evidence for bowel obstruction. 2. Other details discussed above. Abdomen/Pelvis CT 11/27/23 02:50 IMPRESSION: 1. 13 x 8 mm proximal right ureteral calculus, see additional details above. 2. No significant right hydronephrosis at this time. 3. Bilateral intrarenal calculi. 4. Several probable renal cysts, see above discussion/recommendation. 5. Prostate enlargement, details above. 6. Diverticulosis, without definite evidence of diverticulitis. See above discussion. 7. Somewhat distended stomach. Possible thickened mucosa/wall in the distal stomach, see above discussion. 8. Normal appendix. 9. Other findings discussed above. COMMENTS: Consistent with the [employer]'s Incidental Findings Committee white paper (J Am Keiko Radiol 2018): Any incidental renal lesion less than 1 cm or classified as too small to characterize, or any incidental cystic renal lesion characterized as simple-appearing, is likely benign. No follow-up imaging is recommended for these lesions per consensus recommendations based on imaging criteria. Laboratory Results WBC 6.65 10^3/uL (3.29-11.43) 11/27/23 02:28 RBC 4.30 10^6/uL (3.85-5.65) 11/27/23 02:28 Hgb 12.10 g/dL (11.27-16.99) 11/27/23 02:28 Hct 38.7 % (37-53) 11/27/23 02:28 MCV 90.0 fl (82-101) 11/27/23 02:28 MCH 28.1 pg (27-33) 11/27/23 02:28 MCHC 31.3 g/dL (30-55) 11/27/23 02:28 RDW 14.0 % (12.1-15.1) 11/27/23 02:28 Plt Count 206 10^3/cmm (157-399) 11/27/23 02:28 MPV 9.3 fL (7.4-10.4) 11/27/23 02:28 Neut % (Auto) 52.0 % 11/27/23 02:28 Lymph % (Auto) 29.3 % 11/27/23 02:28 Rogers % (Auto) 10.4 % 11/27/23 02:28 Eos % (Auto) 7.5 % 11/27/23 02:28 Baso % (Auto) 0.5 % 11/27/23 02:28 Neut # (Auto) 3.46 10^3/uL (1.8-7.7) 11/27/23 02:28 Lymph # (Auto) 2.0 10^3/uL (0.8-4.8) 11/27/23 02:28 Rogers # (Auto) 0.7 10^3/uL (0.2-0.9) 11/27/23 02: Eos # (Auto) 0.5 10^3/uL (0.0-0.8) 11/27/23 02: Baso # (Auto) 0.0 10^3/uL (0.0-0.1) 11/27/23 02:28 Nucleated RBC % (auto) 0 % 11/27/23 02: Nucleated RBCs # 0.0 /100WBC 11/27/23 02:28 Sodium 142 mmol/L (136-145) 11/27/23 02:28 Potassium 4.2 mmol/L (3.5-5.1) 11/27/23 02:28 Chloride 109 mmol/L (98-107) H 11/27/23 02:28 Carbon Dioxide 22 mmol/L (22-29) 11/27/23 02:28 Anion Gap 15.2 (5-19) 11/27/23 02:28 BUN 30 mg/dL (8-23) H 11/27/23 02:28 Creatinine 2.2 mg/dL (0.7-1.2) H 11/27/23 02:28 GFR Calculation Not Reportable 11/27/23 02:28 Glucose 163 mg/dL (65-115) H 11/27/23 02:28 Calculated Osmolality 304 mOsm/kg (285-295) H 11/27/23 02:28 Calcium 8.6 mg/dL (8.5-10.5) 11/27/23 02:28 Total Bilirubin 0.2 mg/dL (0.15-1.2) 11/27/23 02:28 AST 13 U/L (0-40) 11/27/23 02:28 ALT 9 U/L (0-41) 11/27/23 02:28 Alkaline Phosphatase 60 U/L (40-130) 11/27/23 02:28 Troponin T Baseline 32 ng/L (0-15) H 11/27/23 02:28 Troponin T 120 Minute 29.73 ng/L (0-15) H 11/27/23 04:32 Delta Troponin T -2.27 ABS# (0-10) L 11/27/23 04:32 C-Reactive Protein 3.0 mg/L (0.0-4.9) 11/27/23 02:28 Total Protein 6.1 g/dL (6.6-8.7) L 11/27/23 02:28 Albumin 3.8 g/dL (3.5-5.2) 11/27/23 02:28 Globulin 2.3 g/dL (1.3-4.6) 11/27/23 02:28 Lipase 84 U/L (13-60) H 11/27/23 02:28 All radiology interpretation(s) finalized by discharge Discharge Plan Discharge Patient Disposition: Home Clinical Impression: Abdominal pain, Gastritis Condition: Stable Prescriptions: New hydrocodone-acetaminophen 5-325 mg tablet 1 tab PO Q8H PRN (Reason: pain) Qty: 10 0RF sucralfate 1 gram tablet 1 g PO TID 28 Days Qty: 84 0RF ondansetron 4 mg tablet,disintegrating 4 mg PO Q6H PRN (Reason: nausea and vomiting) Qty: 14 0RF Continued omeprazole 40 mg capsule,delayed release(DR/EC) 40 mg PO DAILY Qty: 60 0RF No Action (DME) DME: [facility] See Rx Instructions .ROUTE .MEDSUPPLY Qty: 1 0RF Rx Instructions: As directed, with seat multivitamin Tablet 1 tab PO DAILY coenzyme Q10 [CoQ-10] 100 mg Capsule 100 mg PO DAILY amlodipine 10 mg tablet 10 mg PO DAILY amitriptyline 150 mg tablet 150 mg PO BEDTIME atorvastatin 40 mg tablet 40 mg PO DAILY omega-3 fatty acids 1,000 mg Capsule 1,000 mg PO DAILY lisinopril 20 mg tablet 20 mg PO BID hydralazine 50 mg tablet 50 mg PO TID lysine 500 mg Tablet 500 mg PO DAILY Jardiance 10 mg tablet 10 mg PO DAILY metoprolol tartrate 25 mg Tablet 12.5 mg PO BID@0900,2100 Qty: 60 0RF Discharge Orders: Discharge ED (Routine); Ordered 11/27/23 Ordered By: Walker Meléndez Referrals: Kem Briggs DO [Primary Care Provider] - 1-3 days Patient Instructions: Gastritis (ED), Abdominal Pain (ED), Opioid Safety, Pain Management Activity Restrictions/Additional Instructions: Increase your omeprazole from once a day to twice a day. Take the medication prescribed this morning as directed. You should be on this at least a month. Take pain medication for significant pain. We will put in a referral to urology for the kidney stone that we found on CAT scan as well. You should get a call this week to make an appointment. Return for fever, vomiting liquids, other concerning symptoms. Coding Level of Care Code ED Clinical Education Coordinator for Shayne Cowart
[2023-11-27 04:02] VITALS: PULSE 79; RESP 16; O2SAT 94
--- NOTE | 2023-11-27 04:47 | ECG_ITS ---
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 Measurements Intervals [place] Rate: 74 P: 29 ND: 192 QRS: -76 QRSD: 200 T: 75 QT: 446 QTc: 497 Interpretive Statements ELECTRONIC VENTRICULAR PACEMAKER ABNORMAL RHYTHM ECG Compared to ECG 11/27/2023 02:04:33 No significant changes Electronically Signed On 11-27-2023 14:50:46 CDT by Krystian Leal M.D. [email or web address]
[2023-11-27 04:54] VITALS: BP 180/89; PULSE 76; RESP 16; O2SAT 94
[2023-11-27 05:16] LABS: Troponin 5 2HR 29.73 ng/L (0-15)
[2023-11-27 05:17] LABS: Troponin 5 2HR Delta -2.27 ABS# (0-10)
[2023-11-27 05:39] VITALS: BP 180/89; PULSE 80; RESP 18; O2SAT 92
--- NOTE | 2023-11-27 05:39 | PC.NURSE ---
PT ambulated to the bathroom at this time
[2023-11-27 06:14] VITALS: BP 178/81; PULSE 79; RESP 18; O2SAT 97
== END 2023-11-27 06:15 | disposition home or self-care (01) ==
PROVIDERS: Emergency Provider Emergency Medicine; PCP Family Medicine
DX: K29.70 Gastritis, unspecified, without bleeding (principal); Z95.0 Presence of cardiac pacemaker; E11.22 Type 2 diabetes mellitus with diabetic chronic kidney disease; I12.9 Hypertensive chronic kidney disease with stage 1 through stage 4 chronic kidney disease, or unspecified chronic kidney disease; N18.9 Chronic kidney disease, unspecified; E78.5 Hyperlipidemia, unspecified; Z86.73 Personal history of transient ischemic attack (TIA), and cerebral infarction without residual deficits
CPT/HCPCS: 36415; 74018; 74177; 80053; 83690; 84484; 85025; 86140; 93005; 96374; 96375; 99285; J2270; J2405; Q9967

== ENCOUNTER → 2024-03-08 09:52 | Outpatient (BNVA) | payer MEDICARE, SELFPAY | PROVIDERS: PCP Family Medicine; Visit Provider Nurse Practitioner Family | DX: Z95.0 Presence of cardiac pacemaker (principal) | CPT/HCPCS: 99214 ==

== ENCOUNTER 2024-04-29 05:28 | Emergency (ER) | payer MEDICARE, SELFPAY ==
[2024-04-29 05:29] VITALS: BP 167/85; PULSE 76; RESP 22; TEMP 36.8; O2SAT 94; BMI 25.7
--- NOTE | 2024-04-29 05:41 | ECG_ITS ---
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
--- NOTE | 2024-04-29 05:42 | XRR_ITS ---
PROCEDURE INFORMATION: Exam: XR Chest Exam date and time: 04/29/2024 5:50 AM Age: 79 years old Clinical indication: Cough and dyspnea; Prior surgery; Surgery date: 6+ months; Surgery type: Pacer. Gb. Patient HX: Cough with dyspnea; Additional info: Dyspnea/cough TECHNIQUE: Imaging protocol: Radiologic exam of the chest. Views: 1 view. COMPARISON: CR XR chest 1V portable [id number] 07/06/2023 7:19 PM FINDINGS: Tubes, catheters and devices: Two lead pacemaker/defibrillator. Lungs: Mild interstitial prominence. Pleural spaces: Unremarkable. No pleural effusion. No pneumothorax. Heart/Mediastinum: Unremarkable. No cardiomegaly. Vasculature: Increased density in the superior mediastinum is likely due to tortuosity of the brachiocephalic vasculature. The appearance is similar to what was seen in 2021. Bones/joints: Unremarkable. XR/XR chest 1V portable [id number] IMPRESSION: No significant change.
--- NOTE | 2024-04-29 05:47 | PC.NURSE ---
MD at bedside to assess pt. Pt is on room air at home. Per EMS, pt had spo2 of 88% on their arrival. Pt was brought in on 4LNC. MD decreased O2 to 2LNC at this time. Pt tolerating well. Will continue to monitor
--- NOTE | 2024-04-29 05:51 | CTR_ITS ---
PROCEDURE INFORMATION: Exam: CT Abdomen And Pelvis Without Contrast Exam date and time: 04/29/2024 6:19 AM Age: 79 years old Clinical indication: Abdominal pain; Localized; Lower; Prior surgery; Surgery date: 6+ months; Surgery type: Pacer. Gb. Umbilical hernia repair. Patient HX: C/O severe suprapubic pain. Had nephrolith surgically removed approximately two weeks ago. ; Additional info: Suprapubic abd pain - recent surgery for excision nephrolith TECHNIQUE: Imaging protocol: Computed tomography of the abdomen and pelvis without contrast. Radiation optimization: All CT scans at this facility use at least one of these dose optimization techniques: automated exposure control; mA and/or kV adjustment per patient size (includes targeted exams where dose is matched to clinical indication); or iterative reconstruction. COMPARISON: CT abdomen pelvis w con* [id number] 11/27/2023 3:12 AM RADIATION DOSE METRICS: Total DLP (mGy-cm): 538.07 FINDINGS: Lungs: Emphysematous COPD. Liver: Normal. No mass. Gallbladder and biliary ducts: Cholecystectomy. Gas within the biliary system is presumably related to prior cholecystectomy and sphincterotomy. Pancreas: Normal. No ductal dilation. Spleen: Normal. No splenomegaly. Adrenal glands: Hyperplastic left adrenal gland. Kidneys and ureters: Nonobstructing renal calculi on each side, larger and more numerous on the right. Bilateral renal cysts are present. No evidence of urinary obstruction. The previously observed right UPJ calculus is no longer seen. Stomach and bowel: Very extensive diverticulosis without evidence of diverticulitis. Indeterminate possible thickening of the wall of the stomach, the stomach is incompletely distended. Appendix: No evidence of appendicitis. Intraperitoneal space: Unremarkable. No free air. No significant fluid collection. Vasculature: Unremarkable. No abdominal aortic aneurysm. Lymph nodes: Unremarkable. No enlarged lymph nodes. Urinary bladder: The urinary bladder is collapsed around a Ruiz catheter. Reproductive: Unremarkable as visualized. Bones/joints: Bilateral L5 spondylolysis with mild spondylolisthesis. Soft tissues: Unremarkable. Other findings: Small peripheral calcified granuloma plus micronodular densities on the right side. CT/CT kidney stone [id number] IMPRESSION: Except for current absence of the prior right UPJ calculus there has been no change. COMMENTS: Consistent with the [employer]'s Incidental Findings Committee white paper (J Am Keiko Radiol 2018): Any incidental renal lesion less than 1 cm or classified as too small to characterize, or any incidental cystic renal lesion characterized as simple-appearing, is likely benign. No follow-up imaging is recommended for these lesions per consensus recommendations based on imaging criteria.
--- NOTE | 2024-04-29 05:51 | W.ED.AMS ---
HPI - Altered Mental Status General: Chief Complaint: Altered Mental Status Stated Complaint: LETHARGIC Time Seen by Provider: 04/29/24 05:41 History of Present Illness: 79-year-old male presents to the emergency room with complaints of lethargy and weakness and shortness of breath. EMS reported he needed 4 L to maintain his oxygen sat on arrival here we titrated him down to 2 L and later titrated him off maintain his oxygen sat without difficulty. He recently had excision of nephrolithiasis stones on the left. He has done well with those. He does have little abdominal discomfort from not. Patient reports he is also hearing music in his head this is a chronic complaint is extremely hard of hearing. No fever sweats or chills. He has been nauseous recently and has been vomiting some not keeping down food or fluids for a while. On arrival here he is tachypneic. Related Data Home Medications Medication Instructions Recorded Confirmed amlodipine 10 mg tablet 10 mg PO DAILY 07/26/21 04/29/24 coenzyme Q10 100 mg capsule 100 mg PO DAILY 07/26/21 04/29/24 (CoQ-10) multivitamin 1 tab PO DAILY 07/26/21 04/29/24 amitriptyline 150 mg tablet 150 mg PO BEDTIME 07/06/23 04/29/24 atorvastatin 40 mg tablet 40 mg PO DAILY 07/06/23 04/29/24 empagliflozin 10 mg tablet 10 mg PO DAILY 07/06/23 04/29/24 (Jardiance) hydralazine 50 mg tablet 50 mg PO TID 07/06/23 04/29/24 lysine 500 mg tablet 500 mg PO DAILY 07/06/23 04/29/24 omega-3 fatty acids 1,000 mg 1,000 mg PO DAILY 07/06/23 04/29/24 capsule oxycodone-acetaminophen 10 mg-325 1 tab PO Q6H PRN Pain 04/29/24 04/29/24 mg tablet tamoxifen 10 mg tablet 10 mg PO DAILY 04/29/24 04/29/24 Previous Rx's Medication Instructions Recorded DME: Isidoro #1 ea 08/02/21 metoprolol tartrate 25 mg tablet 12.5 mg (1/2 x 25 mg) PO 07/08/23 BID@0900,2100 #60 tabs ondansetron 4 mg disintegrating 4 mg PO Q6H PRN nausea and 11/27/23 tablet vomiting #14 tabs Oxygen/ continuous #1 ea 03/11/24 ciprofloxacin HCl 250 mg tablet 250 mg PO BID #14 tabs 04/29/24 (Cipro) pantoprazole 40 mg tablet,delayed 40 mg PO DAILY #40 tabs 04/29/24 release promethazine 25 mg tablet 25 mg PO Q6H PRN nausea and 04/29/24 vomiting #20 tabs Allergies Allergy/AdvReac Type Severity Reaction Status Date / Time No Known Allergies Allergy Verified 03/08/24 09:58 Review of Systems Const: Reports: change in appetite, fatigue and malaise; Denies: fever(s) or chills Card: Denies: chest pain Resp: Denies: dyspnea GI: Reports: abdominal pain : Denies: dysuria, urinary frequency or urinary urgency Musc: Denies: neck pain or back pain PFS ED PFSH: Medical History Pacemaker Medtronic dual chamber 07/06/2023 Acute kidney injury superimposed on CKD Syncope and collapse Syncope Mobitz type II block Acute thoracic back pain Dyslipidemia BPH loc w urin obs/LUTS Weight loss, non-intentional Acquired deafness of both ears History of stroke GERD (gastroesophageal reflux disease) Chronic headache Type 2 diabetes mellitus Hypertension Surgical History Status post cardiac pacemaker procedure History of colonoscopy <10 yrs History of knee surgery left (x4) History of tonsillectomy H/O umbilical hernia repair History of cholecystectomy Family History Brother Cancer Skin Cancer Social History Smoking and tobacco/nicotine status: never used tobacco/nicotine Alcohol intake: never Substance/Drug Use: never Physical Exam Const: GENERAL APPEARANCE: cooperative ORIENTATION/CONSCIOUSNESS: Yes awake, Yes oriented to person, Yes oriented to place and Yes oriented to time HENMT: COMMON NORMALS: normocephalic, atraumatic and hearing grossly normal bilaterally HEAD & SCALP: normocephalic and atraumatic Resp: COMMON NORMALS: normal respiratory effort, No retractions, No use of accessory muscles and clear to auscultation bilaterally AUSCULTATION: clear to auscultation bilaterally Cardio: COMMON NORMALS: regular rate, regular rhythm and No murmurs present (Cardio) RATE: regular rate RHYTHM: regular rhythm GI: COMMON NORMALS: No hepatosplenomegaly present AUSCULTATION: Yes normoactive bowel sounds PALPATION: Yes Tenderness to palpation present (GI) (Suprapubic tenderness), No Guarding due to palpation present (GI) and Yes No hepatosplenomegaly present Extremity: COMMON NORMALS: normal to inspection, capillary refill normal, no clubbing, cyanosis or edema, no calf tenderness and no pedal edema Neuro: SENSORIUM/ORIENTATION: Yes oriented to person, Yes oriented to place and Yes oriented to time Skin: COMMON NORMALS: no rashes or lesions noted GENERAL SKIN EXAM: no rashes or lesions noted Course Vital Signs: Vital signs: Vital Signs Temperature 98.3 F 04/29/24 05:29 Pulse Rate 75 04/29/24 09:41 Respiratory Rate 19 H 04/29/24 08:52 Blood Pressure 156/76 04/29/24 09:41 Pulse Oximetry 93 04/29/24 09:41 Oxygen Delivery Me thod Nasal Cannula 04/29/24 08:52 Oxygen Flow Rate 4 04/29/24 06:30 MDM - Altered Mental Status Medical Decision Making CT abdomen negative for acute pathologic findings or some postsurgical changes. ABG shows hyperventilation with a pH of 766 and a pCO2 of 22. White count was normal he has mild lightheadedness pneumatic at 9.8 he has not had hematochezia or melena. This may be related to his recent surgeries cardiac enzymes are trending negative his EKG does not show any acute changes. He does have a creatinine of 2.4 however this is in line with what he has been his previous most recent recent creatinine was 2.2. He is improved now we are able to titrate him off the oxygen completely maintaining sats in the mid 90s. Chest x-ray was otherwise unremarkable. Will go ahead and discharge patient home going to have him started on oral antibiotics UA did show mild cystitis. Additionally switch him from we will ondansetron to use promethazine as needed. Finally we will have him stop his omeprazole switched to pantoprazole 40 mg twice daily and then 40 mg daily follow-up with his primary care doctor. If he continues to have difficulty with swallowing and weight loss as described by the he may need to have further evaluation on outpatient basis. While here he demonstrated no difficulty with swallowing and no episodes of vomiting. Lab Data 04/29/24 05:45 04/29/24 05:45 Radiology Impressions Chest X-Ray 04/29/24 05:42 IMPRESSION: No significant change. Abdomen/Pelvis CT 04/29/24 05:51 IMPRESSION: Except for current absence of the prior right UPJ calculus there has been no change. COMMENTS: Consistent with the [employer]'s Incidental Findings Committee white paper (J Am Keiko Radiol 2018): Any incidental renal lesion less than 1 cm or classified as too small to characterize, or any incidental cystic renal lesion characterized as simple-appearing, is likely benign. No follow-up imaging is recommended for these lesions per consensus recommendations based on imaging criteria. Chest CTA 04/29/24 06:53 IMPRESSION: No acute findings. Laboratory Results WBC 5.69 10^3/uL (3.29-11.43) 04/29/24 05:45 RBC 3.45 10^6/uL (3.85-5.65) L 04/29/24 05:45 Hgb 9.80 g/dL (11.27-16.99) L 04/29/24 05:45 Hct 31.4 % (37-53) L 04/29/24 05:45 MCV 91.0 fl (82-101) 04/29/24 05:45 MCH 28.4 pg (27-33) 04/29/24 05:45 MCHC 31.2 g/dL (30-55) 04/29/24 05:45 RDW 14.3 % (12.1-15.1) 04/29/24 05:45 Plt Count 198 10^3/cmm (157-399) 04/29/24 05:45 MPV 9.2 fL (7.4-10.4) 04/29/24 05:45 Neut % (Auto) 64.2 % 04/29/24 05:45 Lymph % (Auto) 19.9 % 04/29/24 05:45 [place] % (Auto) 12.8 % 04/29/24 05:45 Eos % (Auto) 2.5 % 04/29/24 05:45 Baso % (Auto) 0.4 % 04/29/24 05:45 Neut # (Auto) 3.66 10^3/uL (1.8-7.7) 04/29/24 05:45 Lymph # (Auto) 1.1 10^3/uL (0.8-4.8) 04/29/24 05:45 [place] # (Auto) 0.7 10^3/uL (0.2-0.9) 04/29/24 05:45 Eos # (Auto) 0.1 10^3/uL (0.0-0.8) 04/29/24 05:45 Baso # (Auto) 0.0 10^3/uL (0.0-0.1) 04/29/24 05:45 Nucleated RBC % (auto) 0 % 04/29/24 05:45 Nucleated RBCs # 0.0 /100WBC 04/29/24 05:45 Specimen Type Arterial 04/29/24 05:50 Sample Site Brachial, right 04/29/24 05:50 ABG pH 7.66 (7.35-7.45) H* 04/29/24 05:50 ABG pCO2 22.2 mmHg (35-45) L 04/29/24 05:50 ABG pO2 50.7 mmHg (80.0-100.0) L 04/29/24 05:50 ABG HCO3 24.8 mmol/L (22-26) 04/29/24 05:50 ABG O2 Saturation 88.8 04/29/24 05:50 ABG Base Excess 5.0 mmol/L (-2.0-2.0) H 04/29/24 05:50 Josue Test Pos 04/29/24 05:50 A-a O2 Gradient 9.0 mmHg (5-10) 04/29/24 05:50 Hematocrit 32.1 % (42-52) L 04/29/24 05:50 Hgb O2 Saturation 88.2 % (95-100) L 04/29/24 05:50 Carboxyhemoglobin < 0.3 %THgb (0.4-20.1) L 04/29/24 05:50 Methemoglobin 0.8 % (0.4-1.5) 04/29/24 05:50 Total Hemoglobin 10.5 g/dL (14-18) L 04/29/24 05:50 Sodium 135.0 mmol/L (131-143) 04/29/24 05:50 Potassium 4.0 mmol/L (3.5-5.0) 04/29/24 05:50 Glucose 135.0 mg/dL (70-115) H 04/29/24 05:50 Ionized Calcium 1.0 mmol/L (1.1-1.4) L 04/29/24 05:50 O2 Delivery Device Nc 04/29/24 05:50 O2 Liters/Min 2.0 % 04/29/24 05:50 Interior Assemblies Installer ID [email or web address] 04/29/24 05:50 Sodium 135 mmol/L (136-145) L 04/29/24 05:45 Potassium 4.1 mmol/L (3.5-5.1) 04/29/24 05:45 Chloride 100 mmol/L (98-107) 04/29/24 05:45 Carbon Dioxide 25 mmol/L (22-29) 04/29/24 05:45 Anion Gap 14.1 (5-19) 04/29/24 05:45 BUN 29 mg/dL (8-23) H 04/29/24 05:45 Creatinine 2.4 mg/dL (0.7-1.2) H 04/29/24 05:45 GFR Calculation Not Reportable 04/29/24 05:45 Glucose 134 mg/dL (65-115) H 04/29/24 05:45 Calculated Osmolality 288 mOsm/kg (285-295) 04/29/24 05:45 Lactic Acid 1.5 mmol/L (0.5-2.2) 04/29/24 05:45 Calcium 7.4 mg/dL (8.5-10.5) L 04/29/24 05:45 Total Bilirubin 0.3 mg/dL (0.15-1.2) 04/29/24 05:45 AST 12 U/L (0-40) 04/29/24 05:45 ALT 7 U/L (0-41) 04/29/24 05:45 Alkaline Phosphatase 50 U/L (40-130) 04/29/24 05:45 Troponin T Baseline 34 ng/L (0-15) H 04/29/24 05:45 Troponin T 120 Minute 35.79 ng/L (0-15) H 04/29/24 07:48 Delta Troponin T 1.79 ABS# (0-10) 04/29/24 07:48 Total Protein 5.7 g/dL (6.6-8.7) L 04/29/24 05:45 Albumin 3.0 g/dL (3.5-5.2) L 04/29/24 05:45 Globulin 2.7 g/dL (1.3-4.6) 04/29/24 05:45 Urine Color Yellow (Yellow) 04/29/24 05:44 Urine Appearance Clear (CLEAR) 04/29/24 05:44 Urine pH 8.5 (5-7) A 04/29/24 05:44 Ur Specific [place] 1.009 (1.005-1.030) 04/29/24 05:44 Urine Protein 1+ (Negative) A 04/29/24 05:44 Urine Glucose (UA) Negative (Normal) 04/29/24 05:44 Urine Ketones Negative (Negative) 04/29/24 05:44 Urine Blood Negative (Negative) 04/29/24 05:44 Urine Nitrate Negative (Negative) 04/29/24 05:44 Urine Bilirubin Negative (Negative) 04/29/24 05:44 Urine Urobilinogen 0.2 mg/dL (Negative) 04/29/24 05:44 Ur Leukocyte Esterase Trace (Negative) A 04/29/24 05:44 Urine RBC 0-2 /hpf (0-2) 04/29/24 05:44 Urine WBC 11-20 /hpf (0-5) H 04/29/24 05:44 Ur Squamous Epith Cells 0-5 /hpf (0-5) 04/29/24 05:44 Amorphous Sediment Not Reportable 04/29/24 05:44 Urine Bacteria 2+ /hpf (NONE) H 04/29/24 05:44 Hyaline Casts 1.21 /lpf 04/29/24 05:44 Salicylates 0.4 mg/dL (3-10) L 04/29/24 05:45 Urine Opiates Screen Negative ng/mL (Negative) 04/29/24 05:44 Acetaminophen < 5.0 ug/mL (10-30) L 04/29/24 05:45 Ur Barbiturates Screen Negative ng/mL (Negative) 04/29/24 05:44 Ur Phencyclidine Scrn Negative ng/mL (Negative) 04/29/24 05:44 Ur Amphetamines Screen Negative ng/mL (Negative) 04/29/24 05:44 U Benzodiazepines Scrn Negative ng/mL (Negative) 04/29/24 05:44 Urine Cocaine Screen Negative ng/mL (Negative) 04/29/24 05:44 U Marijuana (THC) Screen Negative ng/mL (Negative) 04/29/24 05:44 Ethyl Alcohol < 10 mg/dL (0-10) 04/29/24 05:45 All radiology interpretation(s) finalized by discharge Discharge Plan Discharge Patient Disposition: Home Clinical Impression: Cystitis, Hyperventilation Condition: Stable Prescriptions: New ciprofloxacin HCl [Cipro] 250 mg tablet 250 mg PO BID Qty: 14 0RF pantoprazole 40 mg tablet,delayed release (DR/EC) 40 mg PO DAILY Qty: 40 0RF Rx Instructions: 1 p.o. twice daily x 10 days then 1 p.o. daily promethazine 25 mg tablet 25 mg PO Q6H PRN (Reason: nausea and vomiting) Qty: 20 0RF Discontinued omeprazole 40 mg capsule,delayed release(DR/EC) 40 mg PO DAILY Qty: 60 0RF No Action (DME) DME: Walker Unit See Rx Instructions .ROUTE .MEDSUPPLY Qty: 1 0RF Rx Instructions: As directed, with seat (DME) Oxygen/ continuous 2l/nc See Rx Instructions .Route .MEDSUPPLY Qty: 1 0RF Rx Instructions: To keep oxygen above 92. multivitamin Tablet 1 tab PO DAILY coenzyme Q10 [CoQ-10] 100 mg Capsule 100 mg PO DAILY amlodipine 10 mg tablet 10 mg PO DAILY ondansetron 4 mg tablet,disintegrating 4 mg PO Q6H PRN (Reason: nausea and vomiting) Qty: 14 0RF oxycodone-acetaminophen 10-325 mg tablet 1 tab PO Q6H PRN (Reason: Pain) tamoxifen 10 mg tablet 10 mg PO DAILY amitriptyline 150 mg tablet 150 mg PO BEDTIME atorvastatin 40 mg tablet 40 mg PO DAILY omega-3 fatty acids 1,000 mg Capsule 1,000 mg PO DAILY hydralazine 50 mg tablet 50 mg PO TID lysine 500 mg Tablet 500 mg PO DAILY Jardiance 10 mg tablet 10 mg PO DAILY metoprolol tartrate 25 mg Tablet 12.5 mg PO BID@0900,2100 Qty: 60 0RF Discharge Orders: Discharge ED (Routine); Ordered 04/29/24 Ordered By: Wellington Martines Referrals: Kem Briggs DO [Primary Care Provider] - Discharge Activity: Increase activity as tolerated Patient Instructions: Altered Mental Status (ED), Opioid Safety, Pain Management Activity Restrictions/Additional Instructions: Thank you for choosing [facility] for your healthcare needs today. It is very important that you follow up as instructed or that you return to the Emergency Department should you have concerns or if your condition changes or worsens in any way. You were seen emergency room with complaints of shortness of breath and stomach upset. CT of your abdomen did not show any significant abnormalities. There were changes noted from recent surgery but otherwise no acute pathology. Your blood gas on arrival showed that you were hyperventilating. After time you are no longer needing the oxygen. At this point we will discharge you home. To help with your stomach recommend stopping the omeprazole and we will change it to pantoprazole 1 tablet twice a day for 10 days then once daily. You are also noted to have a mild bladder infection recommend Cipro 250 twice a day for 7 days. Finally we gave you a different medicine to use for nausea and vomiting. As the concern of the stomach upset and weight loss it has been ongoing recommend you follow-up with your primary care doctor. The CT did not show any significant abnormality you may need further evaluation including possible EGD which can be arranged by your primary care doctor. Coding Level of Care Code ED Molding Line Operator for Shayne Cowart
[2024-04-29 05:55] LABS: ABG PCO2 22.2 mmHg (35-45); Arterial Blood Gas Hematocrit 32.1 % (42-52); Blood Gas Allen Test Pos; Blood Gas Sample Site Brachial, right; Blood Gas Sample Type Arterial; Carboxyhemoglobin < 0.3 %THgb (0.4-20.1); HCO3 ABG 24.8 mmol/L (22-26); HGB O2 Sat 88.2 % (95-100); Methemoglobin 0.8 % (0.4-1.5); Oxygen Device NC; Oxygen Saturation ABG 88.8; PO2 ABG 50.7 mmHg (80.0-100.0); Total Hemoglobin 10.5 g/dL (14-18)
[2024-04-29 05:55] LABS: Basophils % 0.4 %; Eosinophils # 0.1 10^3/uL (0.0-0.8); Eosinophils % 2.5 %; Hematocrit 31.4 % (37-53); Lymphocytes # 1.1 10^3/uL (0.8-4.8); Lymphocytes % 19.9 %; Mean Corpuscular HGB Conc 31.2 g/dL (30-55); Mean Corpuscular Hemoglobin 28.4 pg (27-33); Mean Platelet Volume 9.2 fL (7.4-10.4); Monocytes # 0.7 10^3/uL (0.2-0.9); Monocytes % 12.8 %; Neutrophils # 3.66 10^3/uL (1.8-7.7); Neutrophils % 64.2 %; Nucleated Red Blood Cells % 0 %; Platelet Count 198 10^3/cmm (157-399); Red Blood Count 3.45 10^6/uL (3.85-5.65); Red Cell Distribution Width 14.3 % (12.1-15.1); White Blood Count 5.69 10^3/uL (3.29-11.43)
[2024-04-29 05:57] LABS: ABG PH Result 7.66 (7.35-7.45)
[2024-04-29 06:14] LABS: Alanine Aminotransferase 7 U/L (0-41); Alkaline Phosphatase 50 U/L (40-130); Anion Gap 14.1 (5-19); Aspartate Amino Transferase 12 U/L (0-40); Blood Urea Nitrogen 29 mg/dL (8-23); Calcium 7.4 mg/dL (8.5-10.5); Carbon Dioxide 25 mmol/L (22-29); Chloride 100 mmol/L (98-107); Creatinine Clr Calc Pharmacy 27.6676; Globulin 2.7 g/dL (1.3-4.6); Glucose 134 mg/dL (65-115); Lactic Sepsis W/Reflex 1.5 mmol/L (0.5-2.2); Osmolality Calculated 288 mOsm/kg (285-295); Potassium 4.1 mmol/L (3.5-5.1); Sodium 135 mmol/L (136-145); Total Bilirubin 0.3 mg/dL (0.15-1.2); Total Protein 5.7 g/dL (6.6-8.7)
[2024-04-29 06:21] LABS: Bilirubin Urine Negative (Negative); Blood Urine Negative (Negative); Glucose Urine UA Negative (Normal); Ketones Urine Negative (Negative); Leukocyte Esterase Urine Trace (Negative); Nitrate Urine Negative (Negative); Protein Urine 1+ (Negative); Specific Gravity, Urine 1.009 (1.005-1.030); Urine Appearance Clear (CLEAR); Urine Color Yellow (Yellow); Urobilinogen Urine 0.2 mg/dL (Negative); pH Urine 8.5 (5-7)
[2024-04-29 06:24] VITALS: BP 137/60; PULSE 80; O2SAT 96
[2024-04-29 06:26] LABS: Add Urine Microscopic? YES; Bacteria Urine 2+ /hpf; Hyaline Casts Urine 1.21 /lpf; RBC Urine 0-2 /hpf (0-2); Squamous Epithelial Cell Urine 0-5 /hpf (0-5)
[2024-04-29 06:26] LABS: Salicylate 0.4 mg/dL (3-10)
[2024-04-29 06:28] LABS: Acetaminophen < 5.0 ug/mL (10-30); Alcohol Level < 10 mg/dL (0-10)
[2024-04-29 06:30] VITALS: BP 137/86; PULSE 72; RESP 19; O2SAT 94
[2024-04-29 06:49] LABS: Amphetamines Screen Urine Negative (Negative); Barbiturates Screen Urine Negative (Negative); Benzodiazepines Screen Urine Negative (Negative); Cocaine Screen Urine Negative (Negative); Opiate Screen Urine Negative (Negative); PCP Screen Urine Negative (Negative); THC Screen Urine Negative (Negative)
--- NOTE | 2024-04-29 06:50 | PC.NURSE ---
THIS NURSE ASSUMED CARE AT 0650.
--- NOTE | 2024-04-29 06:53 | CTR_ITS ---
PROCEDURE INFORMATION: Exam: CTA Chest With Contrast Exam date and time: 04/29/2024 7:10 AM Age: 79 years old Clinical indication: Shortness of breath; Prior surgery; Surgery date: 6+ months; Surgery type: Pacemaker recent surgery for excision nephrolith; Additional info: Hypoxia, generalized weakness, loss of appetite, TECHNIQUE: Imaging protocol: Computed tomographic angiography of the chest with contrast. Exam focused on the arteries. 3D rendering (Not supervised by radiologist): MIP and/or 3D reconstructed images were created by the technologist. Radiation optimization: All CT scans at this facility use at least one of these dose optimization techniques: automated exposure control; mA and/or kV adjustment per patient size (includes targeted exams where dose is matched to clinical indication); or iterative reconstruction. Contrast material: OMNI 350; Contrast volume: 80 ml; Contrast route: INTRAVENOUS (IV); COMPARISON: CT angio chest [id number] 07/26/2021 2:40 PM RADIATION DOSE METRICS: Total DLP (mGy-cm): 339.22 FINDINGS: Tubes, catheters and devices: Multi lead pacemaker/defibrillator. Pulmonary arteries: Normal. No pulmonary emboli. Aorta: Unremarkable. No aortic aneurysm. No aortic dissection. Lungs: Mild centrilobular emphysema. Pleural spaces: Unremarkable. No pneumothorax. No pleural effusion. Heart: Unremarkable. No cardiomegaly. No pericardial effusion. Lymph nodes: Unremarkable. No enlarged lymph nodes. Gallbladder and biliary ducts: Gas within the biliary system probably related to the cholecystectomy present. Bones/joints: Unremarkable. No acute fracture. Soft tissues: Unremarkable. CT/CT angio chest [facility] [id number] IMPRESSION: No acute findings.
[2024-04-29] MEDS: iohexol 350 mg/mL 500 mL Btl (per mL) IV (07:20)
[2024-04-29 07:23] LABS: Troponin(5th) Baseline 34 ng/L (0-15)
[2024-04-29 07:45] VITALS: BP 167/73; PULSE 72; RESP 18; O2SAT 94
[2024-04-29 08:19] LABS: Troponin 5 2HR 35.79 ng/L (0-15); Troponin 5 2HR Delta 1.79 ABS# (0-10)
[2024-04-29 08:52] VITALS: BP 144/76; PULSE 79; RESP 19; O2SAT 92
--- NOTE | 2024-04-29 08:54 | ECG_ITS ---
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
[2024-04-29] MEDS: cefTRIAXone 2,000 mg SDV 2000 MG IVP (09:33)
[2024-04-29] MEDS: OLANZapine 5 mg TABLET PO (09:39)
[2024-04-29 09:41] VITALS: BP 156/76; PULSE 75; O2SAT 93
--- NOTE | 2024-04-29 09:52 | PC.NURSE ---
PATIENT AUGUSTIN REMOVED PER PROVIDER ORDER.
== END 2024-04-29 09:51 | disposition home or self-care (01) ==
PROVIDERS: Emergency Provider Family Medicine; PCP Family Medicine
DX: N30.90 Cystitis, unspecified without hematuria (principal); R06.4 Hyperventilation; Z95.0 Presence of cardiac pacemaker; E11.9 Type 2 diabetes mellitus without complications; I10 Essential (primary) hypertension
CPT/HCPCS: 36415; 36600; 51702; 71045; 71275; 74176; 80051; 80053; 80306; 80307; 81001; 82330; 82805; 83605; 84484; 85025; 87040; 93005; 96374; 99285; J0696

== ENCOUNTER 2024-07-12 16:27 | Outpatient (CLI) | payer MEDICARE, SELFPAY ==
--- NOTE | 2024-07-12 16:37 | US_ITS ---
WS: [id number] RENAL ULTRASOUND HISTORY: CKD stage 4 COMPARISON: None available. TECHNIQUE: 2-D and color Doppler imaging of the kidney submitted. Right kidney: 9.6 cm x 4.3 cm x 5.0 cm. Cortex: 1.0 cm Normal size kidney. Numerous central nonobstructing calcifications are identified. Calcification in the central renal pelvis measures 11 mm. Cortical cyst inferior pole 1.1 x 1.1 x 1.3 cm. Mild increased echogenicity. Left kidney: 10.0 cm x 4.6 cm x 4.7 cm. Cortex: 1.0 cm Normal size kidney with mild cortical thinning. Cyst mid kidney 1.4 x 1.3 x 1.3 cm. Mild increased echogenicity. Aorta: Normal. Urinary Bladder: Normal distention. US/US renal BI* [id number] IMPRESSION: 1. No renal obstruction. 2. Mild chronic medical renal disease. 3. Bilateral renal cysts. 4. Nonobstructing RIGHT renal calcifications.
== END 2024-07-12 16:28 | disposition home or self-care (01) ==
PROVIDERS: PCP Family Medicine; Visit Provider Internal Medicine
DX: N18.4 Chronic kidney disease, stage 4 (severe) (principal); N28.1 Cyst of kidney, acquired; N28.89 Other specified disorders of kidney and ureter; R93.422 Abnormal radiologic findings on diagnostic imaging of left kidney; R93.421 Abnormal radiologic findings on diagnostic imaging of right kidney
CPT/HCPCS: 76770

== ENCOUNTER → 2024-08-28 16:52 | Outpatient (BNVA) | payer MEDICARE, SELFPAY | PROVIDERS: PCP Family Medicine; Visit Provider Internal Medicine | DX: I50.9 Heart failure, unspecified (principal); E87.70 Fluid overload, unspecified | CPT/HCPCS: 36415; 80048; 83880 ==

== ENCOUNTER 2024-10-04 06:03 | Emergency (ER) | payer MEDICARE, SELFPAY ==
--- NOTE | 2024-10-04 06:06 | XRR_ITS ---
PROCEDURE INFORMATION: Exam: XR Chest Exam date and time: 10/04/2024 6:24 AM Age: 79 years old Clinical indication: Dyspnea; Prior surgery; Surgery date: 6+ months; Surgery type: Pacer; Additional info: Weakness TECHNIQUE: Imaging protocol: Radiologic exam of the chest. Views: 1 view. COMPARISON: CT angio chest PE protcl [id number] 04/29/2024 7:10 AM FINDINGS: Tubes, catheters and devices: Multi lead pacemaker/defibrillator. Lungs: Unremarkable. No consolidation. Pleural spaces: No pneumonia or pneumothorax. Heart/Mediastinum: See Vasculature finding. Vasculature: Mild cardiomegaly and uncoiling of the thoracic aorta. Bones/joints: Unremarkable. XR/XR chest 1V portable [id number] IMPRESSION: 1. No acute findings. 2. Cardiomegaly.
--- NOTE | 2024-10-04 06:07 | ECG_ITS ---
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 Measurements Intervals [place] Rate: 78 P: 62 NV: 153 QRS: 252 QRSD: 154 T: -57 QT: 452 QTc: 517 Interpretive Statements ELECTRONIC VENTRICULAR PACEMAKER Compared to ECG 04/29/2024 07:55:22 No significant changes Electronically Signed On 10-07-2024 09:27:35 CDT by Abram Stewart M.D. [id number]
[2024-10-04 06:09] VITALS: BP 145/67; PULSE 80; RESP 18; TEMP 36.3; O2SAT 98; BMI 24.9
[2024-10-04 06:20] LABS: Basophils % 0.3 %; Eosinophils # 0.1 10^3/uL (0.0-0.8); Eosinophils % 2.1 %; Hematocrit 31.9 % (37-53); Lymphocytes # 0.9 10^3/uL (0.8-4.8); Lymphocytes % 16.1 %; Mean Corpuscular HGB Conc 30.7 g/dL (30-55); Mean Corpuscular Hemoglobin 27.6 pg (27-33); Mean Corpuscular Volume 89.9 fl (82-101); Mean Platelet Volume 9.3 fL (7.4-10.4); Monocytes # 0.7 10^3/uL (0.2-0.9); Monocytes % 12.5 %; Neutrophils # 3.95 10^3/uL (1.8-7.7); Neutrophils % 68.7 %; Nucleated Red Blood Cells % 0 %; Platelet Count 109 10^3/cmm (157-399); Red Blood Count 3.55 10^6/uL (3.85-5.65); Red Cell Distribution Width 16.6 % (12.1-15.1); White Blood Count 5.76 10^3/uL (3.29-11.43)
--- NOTE | 2024-10-04 06:22 | CTR_ITS ---
PROCEDURE INFORMATION: Exam: CT Abdomen And Pelvis Without Contrast Exam date and time: 10/04/2024 6:44 AM Age: 79 years old Clinical indication: Abdominal pain; Generalized; Prior surgery; Surgery date: 6+ months; Surgery type: Pacemaker, gb, hernia, recent surgery for excision nephrolith; Additional info: Abd pain, weakness, kavya lower extremity edema, HX of renal insufficiency TECHNIQUE: Imaging protocol: Computed tomography of the abdomen and pelvis without contrast. Radiation optimization: All CT scans at this facility use at least one of these dose optimization techniques: automated exposure control; mA and/or kV adjustment per patient size (includes targeted exams where dose is matched to clinical indication); or iterative reconstruction. COMPARISON: CT kidney stone [id number] 04/29/2024 6:19 AM RADIATION DOSE METRICS: Total DLP (mGy-cm): 568.75 FINDINGS: Pleural spaces: Small bilateral pleural effusions. Liver: Normal. No mass. Gallbladder and biliary ducts: Cholecystectomy. Gas within the biliary system. This was present previously. Pancreas: Normal. No ductal dilation. Spleen: Normal. No splenomegaly. Adrenal glands: Normal. No mass. Kidneys and ureters: Nonobstructing renal calculi. Bilateral renal cysts. One on the right is hyperdense. Stomach and bowel: Diverticulosis without evidence of diverticulitis. Appendix: No evidence of appendicitis. Intraperitoneal space: Unremarkable. No free air. No significant fluid collection. Vasculature: Unremarkable. No abdominal aortic aneurysm. Lymph nodes: Unremarkable. No enlarged lymph nodes. Urinary bladder: Unremarkable as visualized. Reproductive: Unremarkable as visualized. Bones/joints: Unremarkable. No acute fracture. Soft tissues: Unremarkable. CT/CT kidney stone [id number] IMPRESSION: No acute findings.
--- NOTE | 2024-10-04 06:22 | W.ED.EXTPRO ---
HPI - Extremity Problem General: Chief complaint: Extremity Problem,Nontraumatic Stated complaint: fluid retention-weakness Time Seen by Provider: 10/04/24 06:06 Source: patient Mode of arrival: ambulatory Limitations: no limitations History of Present Illness: 79-year-old male here with multiple complaints states he has been having increasing leg swelling for quite some time states that his primary care doctors placed him on Bumex he has had no improvement he has been having some chronic abdominal pain as well that he takes oxycodone for. Denies any shortness of breath he states he has had weight gain over the last month he believes his water weight. Denies any chest pain Associated symptoms: Deny chest pain, fever(s) or rash Related Data Home Medications ?Medication ?Instructions ?Recorded ?Confirmed amlodipine 10 mg tablet 10 mg PO DAILY 07/26/21 08/28/24 coenzyme Q10 100 mg capsule 100 mg PO DAILY 07/26/21 08/28/24 (CoQ-10) multivitamin 1 tab PO DAILY 07/26/21 08/28/24 amitriptyline 150 mg tablet 150 mg PO BEDTIME 07/06/23 08/28/24 atorvastatin 40 mg tablet 40 mg PO DAILY 07/06/23 08/28/24 hydralazine 50 mg tablet 50 mg PO TID 07/06/23 08/28/24 lysine 500 mg tablet 500 mg PO DAILY 07/06/23 08/28/24 oxycodone-acetaminophen 10 mg-325 1 tab PO Q6H PRN Pain 04/29/24 08/28/24 mg tablet tamoxifen 10 mg tablet 10 mg PO DAILY 04/29/24 08/28/24 Previous Rx's ?Medication ?Instructions ?Recorded DME: Walker #1 ea 08/02/21 metoprolol tartrate 25 mg tablet 12.5 mg (1/2 x 25 mg) PO 07/08/23 BID@0900,2100 #60 tabs Oxygen/ continuous #1 ea 03/11/24 pantoprazole 40 mg tablet,delayed 40 mg PO DAILY #40 tabs 04/29/24 release promethazine 25 mg tablet 25 mg PO Q6H PRN nausea and 04/29/24 vomiting #20 tabs furosemide 20 mg tablet (Lasix) 20 mg PO BID #14 tabs 09/03/24 Allergies Allergy/AdvReac Type Severity Reaction Status Date / Time No Known Allergies Allergy Verified 08/28/24 15:48 Review of Systems Const: Denies: fever(s), chills, body aches or change in appetite ENMT: Denies: throat pain or dental pain Card: Denies: chest pain Resp: Denies: dyspnea GI: Reports: abdominal pain; Denies: nausea, vomiting or diarrhea Musc: Reports: extremity swelling; Denies: neck pain or back pain Skin/Breast: Denies: rash Neuro: Denies: headache(s) PFSH ED PFSH: Medical History Hypertension Pacemaker Medtronic dual chamber 07/06/2023 Acute kidney injury superimposed on CKD Syncope and collapse Syncope Mobitz type II block Acute thoracic back pain Dyslipidemia BPH loc w urin obs/LUTS Weight loss, non-intentional Acquired deafness of both ears History of stroke GERD (gastroesophageal reflux disease) Chronic headache Type 2 diabetes mellitus Surgical History Status post cardiac pacemaker procedure History of colonoscopy <10 yrs History of knee surgery left (x4) History of tonsillectomy H/O umbilical hernia repair History of cholecystectomy Family History Brother Cancer Skin Cancer Social History Smoking and tobacco/nicotine status: never used tobacco/nicotine Alcohol intake: never Substance/Drug Use: never Physical Exam Const: COMMON NORMALS: patient oriented x3 HENMT: COMMON NORMALS: normocephalic and atraumatic HEAD & SCALP: normocephalic and atraumatic Eye: COMMON NORMALS: conjunctivae normal CONJUNCTIVA: Yes conjunctivae normal Neck/C-Spine: COMMON NORMALS: full ROM and supple Chest: COMMONS NORMALS: normal inspection of the chest Resp: COMMON NORMALS: normal respiratory effort, No retractions, No use of accessory muscles and clear to auscultation bilaterally AUSCULTATION: clear to auscultation bilaterally Cardio: COMMON NORMALS: regular rate, regular rhythm and No murmurs present (Cardio) RATE: regular rate RHYTHM: regular rhythm GI: COMMON NORMALS: Normal to inspection, nondistended, normoactive bowel sounds present, Soft to palpation, non-tender and no masses PALPATION: Yes Soft to palpation Extremity: COMMON NORMALS: full ROM NARRATIVE EXTREMITY EXAM: 2+ edema le Neuro: COMMON NORMALS: patient oriented x3, moves all extremities and no focal motor deficits Psych: COMMON NORMALS: mental status grossly normal, Normal thought process present and cooperative THOUGHT PROCESS: Normal thought process present Skin: COMMON NORMALS: no rashes or lesions noted and no wounds GENERAL SKIN EXAM: no rashes or lesions noted Course Vital Signs: Vital signs: Vital Signs Temperature 97.4 F L 10/04/24 06:09 Pulse Rate 78 10/04/24 07:47 Respiratory Rate 18 10/04/24 07:22 Blood Pressure 157/85 10/04/24 07:47 Pulse Oximetry 98 10/04/24 07:47 Oxygen Delivery Me thod Nasal Cannula 10/04/24 07:22 Oxygen Flow Rate 2 10/04/24 07:22 MDM - Extremity (Nontraumatic) Medical Decision Making Patient presents here with lower extremity edema likely from his CHF he has no pulm edema not requiring any oxygen here did give him a dose of Lasix he is use compression stockings he has follow-up with PCP today is to follow-up as scheduled he is to return if worsening family understands agrees to plan Medical Records I reviewed the patient's medical records. Lab Data I reviewed the patient's lab results. 10/04/24 06:14 10/04/24 06:14 Radiology Impressions Chest X-Ray 10/04/24 06:06 IMPRESSION: 1. No acute findings. 2. Cardiomegaly. Abdomen/Pelvis CT 10/04/24 06:22 IMPRESSION: No acute findings. Laboratory Results WBC 5.76 10^3/uL (3.29-11.43) 10/04/24 06:14 RBC 3.55 10^6/uL (3.85-5.65) L 10/04/24 06:14 Hgb 9.80 g/dL (11.27-16.99) L 10/04/24 06:14 Hct 31.9 % (37-53) L 10/04/24 06:14 MCV 89.9 fl (82-101) 10/04/24 06:14 MCH 27.6 pg (27-33) 10/04/24 06:14 MCHC 30.7 g/dL (30-55) 10/04/24 06:14 RDW 16.6 % (12.1-15.1) H 10/04/24 06:14 Plt Count 109 10^3/cmm (157-399) L 10/04/24 06:14 MPV 9.3 fL (7.4-10.4) 10/04/24 06:14 Neut % (Auto) 68.7 % 10/04/24 06:14 Lymph % (Auto) 16.1 % 10/04/24 06:14 Nance % (Auto) 12.5 % 10/04/24 06:14 Eos % (Auto) 2.1 % 10/04/24 06:14 Baso % (Auto) 0.3 % 10/04/24 06:14 Neut # (Auto) 3.95 10^3/uL (1.8-7.7) 10/04/24 06:14 Lymph # (Auto) 0.9 10^3/uL (0.8-4.8) 10/04/24 06:14 Nance # (Auto) 0.7 10^3/uL (0.2-0.9) 10/04/24 06:14 Eos # (Auto) 0.1 10^3/uL (0.0-0.8) 10/04/24 06:14 Baso # (Auto) 0.0 10^3/uL (0.0-0.1) 10/04/24 06:14 Nucleated RBC % (auto) 0 % 10/04/24 06:14 Nucleated RBCs # 0.0 /100WBC 10/04/24 06:14 Sodium 138 mmol/L (136-145) 10/04/24 06:14 Potassium 4.1 mmol/L (3.5-5.1) 10/04/24 06:14 Chloride 98 mmol/L (98-107) 10/04/24 06:14 Carbon Dioxide 29 mmol/L (22-29) 10/04/24 06:14 Anion Gap 15.1 (5-19) 10/04/24 06:14 BUN 47 mg/dL (8-23) H 10/04/24 06:14 Creatinine 2.6 mg/dL (0.7-1.2) H 10/04/24 06:14 GFR Calculation Not Reportable 10/04/24 06:14 Glucose 133 mg/dL (65-115) H 10/04/24 06:14 Calculated Osmolality 300 mOsm/kg (285-295) H 10/04/24 06:14 Calcium 8.3 mg/dL (8.5-10.5) L 10/04/24 06:14 Magnesium 2.7 mg/dL (1.7-2.3) H 10/04/24 06:14 Total Bilirubin 0.9 mg/dL (0.15-1.2) 10/04/24 06:14 AST 22 U/L (0-40) 10/04/24 06:14 ALT 11 U/L (0-41) 10/04/24 06:14 Alkaline Phosphatase 54 U/L (40-130) 10/04/24 06:14 NT-Pro-B Natriuret Pep 10416 pg/mL (0-450) H 10/04/24 06:14 Total Protein 6.3 g/dL (6.6-8.7) L 10/04/24 06:14 Albumin 3.5 g/dL (3.5-5.2) 10/04/24 06:14 Globulin 2.8 g/dL (1.3-4.6) 10/04/24 06:14 Urine Color Yellow (Yellow) 10/04/24 07:15 Urine Appearance Clear (CLEAR) 10/04/24 07:15 Urine pH 5.5 (5-7) 10/04/24 07:15 Ur Specific Willard 1.013 (1.005-1.030) 10/04/24 07:15 Urine Protein Trace (Negative) A 10/04/24 07:15 Urine Glucose (UA) Negative (Normal) 10/04/24 07:15 Urine Ketones Negative (Negative) 10/04/24 07:15 Urine Blood Negative (Negative) 10/04/24 07:15 Urine Nitrate Negative (Negative) 10/04/24 07:15 Urine Bilirubin Negative (Negative) 10/04/24 07:15 Urine Urobilinogen 1.0 mg/dL (Negative) 10/04/24 07:15 Ur Leukocyte Esterase 1+ (Negative) A 10/04/24 07:15 Urine RBC 0-2 /hpf (0-2) 10/04/24 07:15 Urine WBC 6-10 /hpf (0-5) 10/04/24 07:15 Ur Squamous Epith Cells 0-5 /hpf (0-5) 10/04/24 07:15 Amorphous Sediment Not Reportable 10/04/24 07:15 Urine Bacteria None seen /hpf (NONE) 10/04/24 07:15 Hyaline Casts 11.57 /lpf 10/04/24 07:15 All radiology interpretation(s) finalized by discharge Discharge Plan Discharge Patient Disposition: Home Clinical Impression: Lower extremity edema, Chronic kidney disease, Abdominal pain Condition: Stable Prescriptions: No Action (DME) DME: Walker Unit See Rx Instructions .ROUTE .MEDSUPPLY Qty: 1 0RF Rx Instructions: As directed, with seat (DME) Oxygen/ continuous 2l/nc See Rx Instructions .Route .MEDSUPPLY Qty: 1 0RF Rx Instructions: To keep oxygen above 92. furosemide [Lasix] 20 mg tablet 20 mg PO BID Qty: 14 0RF multivitamin Tablet 1 tab PO DAILY coenzyme Q10 [CoQ-10] 100 mg Capsule 100 mg PO DAILY amlodipine 10 mg tablet 10 mg PO DAILY oxycodone-acetaminophen 10-325 mg tablet 1 tab PO Q6H PRN (Reason: Pain) tamoxifen 10 mg tablet 10 mg PO DAILY pantoprazole 40 mg tablet,delayed release (DR/EC) 40 mg PO DAILY Qty: 40 0RF Rx Instructions: 1 p.o. twice daily x 10 days then 1 p.o. daily promethazine 25 mg tablet 25 mg PO Q6H PRN (Reason: nausea and vomiting) Qty: 20 0RF amitriptyline 150 mg tablet 150 mg PO BEDTIME atorvastatin 40 mg tablet 40 mg PO DAILY hydralazine 50 mg tablet 50 mg PO TID lysine 500 mg Tablet 500 mg PO DAILY metoprolol tartrate 25 mg Tablet 12.5 mg PO BID@0900,2100 Qty: 60 0RF Discharge Orders: Discharge ED (Routine); Ordered 10/04/24 Ordered By: Yolette Leonardo Referrals: Kem Briggs DO [Primary Care Provider] - 4-7 days Discharge Diet: Advance as tolerated Discharge Activity: Resume usual activity Patient Instructions: Leg Edema (ED), Abdominal Pain (ED) Print Language: Sami Coding Level of Care Code ED Counseling Director for Shayne Cowart
[2024-10-04] MEDS: morphine 4 mg/mL SDV 1 mL IM (06:39)
[2024-10-04] MEDS: FUROsemide 10 mg/mL SDV 10mL 60 MG IVP (06:39)
[2024-10-04] MEDS: ondansetron 2 mg/ML SDV 2 mL 4 MG IVP (06:40)
[2024-10-04 06:52] LABS: Alanine Aminotransferase 11 U/L (0-41); Albumin Level 3.5 g/dL (3.5-5.2); Alkaline Phosphatase 54 U/L (40-130); Anion Gap 15.1 (5-19); Aspartate Amino Transferase 22 U/L (0-40); Blood Urea Nitrogen 47 mg/dL (8-23); Calcium 8.3 mg/dL (8.5-10.5); Carbon Dioxide 29 mmol/L (22-29); Chloride 98 mmol/L (98-107); Creatinine Clr Calc Pharmacy 25.1962; Globulin 2.8 g/dL (1.3-4.6); Glucose 133 mg/dL (65-115); Magnesium 2.7 mg/dL (1.7-2.3); Osmolality Calculated 300 mOsm/kg (285-295); Potassium 4.1 mmol/L (3.5-5.1); Sodium 138 mmol/L (136-145); Total Bilirubin 0.9 mg/dL (0.15-1.2); Total Protein 6.3 g/dL (6.6-8.7)
[2024-10-04 07:02] VITALS: BP 133/70; PULSE 71; RESP 16; O2SAT 92
[2024-10-04 07:19] LABS: NT Pro B Type Natriuretic Pept 44834 pg/mL (0-450)
[2024-10-04 07:20] VITALS: O2SAT 85
[2024-10-04 07:22] VITALS: BP 131/85; PULSE 75; RESP 18; O2SAT 97
[2024-10-04 07:25] LABS: Bilirubin Urine Negative (Negative); Blood Urine Negative (Negative); Glucose Urine UA Negative (Normal); Ketones Urine Negative (Negative); Leukocyte Esterase Urine 1+ (Negative); Nitrate Urine Negative (Negative); Protein Urine Trace (Negative); Specific Gravity, Urine 1.013 (1.005-1.030); Urine Appearance Clear (CLEAR); Urine Color Yellow (Yellow); pH Urine 5.5 (5-7)
[2024-10-04 07:27] LABS: Add Urine Microscopic? YES; Bacteria Urine None Seen /hpf; Hyaline Casts Urine 11.57 /lpf; RBC Urine 0-2 /hpf (0-2); Squamous Epithelial Cell Urine 0-5 /hpf (0-5)
[2024-10-04 07:41] LABS: UA Slide Review UA Slide Review Perf
[2024-10-04 07:42] LABS: Add Urine Culture? No
[2024-10-04 07:47] VITALS: BP 157/85; PULSE 78; O2SAT 98
== END 2024-10-04 07:48 | disposition home or self-care (01) ==
PROVIDERS: Emergency Provider Emergency Medicine; PCP Family Medicine
DX: R60.0 Localized edema (principal); R10.9 Unspecified abdominal pain; E11.22 Type 2 diabetes mellitus with diabetic chronic kidney disease; I12.9 Hypertensive chronic kidney disease with stage 1 through stage 4 chronic kidney disease, or unspecified chronic kidney disease; N18.9 Chronic kidney disease, unspecified; Z95.0 Presence of cardiac pacemaker; E78.5 Hyperlipidemia, unspecified
CPT/HCPCS: 71045; 74176; 80053; 81001; 83735; 83880; 85025; 93005; 96372; 96374; 96375; 99285; J1938; J2270; J2405

== ENCOUNTER 2024-10-07 14:18 | Outpatient (CLI) | payer MEDICARE, SELFPAY ==
--- NOTE | 2024-10-07 14:15 | USCV_ITS ---
Anant Byrne Age: 79 Gender: M : 1945 Exam Date: 10/07/2024 14:53 Ordering Phys: Abram Stewart M.D ([email or web address]) Technologist: VITA Exam Location: [facility] Indication: CHF, SOB BP: 122 / 60 HR: 77 Rhythm: Sinus Technical Quality: Adequate MEASUREMENTS (Male / Female) Normal Values 2D ECHO LV Diastolic Diameter PLAX 5.8 cm 4.2 - 5.9 / 3.9 - 5.3 cm IVS Diastolic Thickness 1.6 cm 0.6 - 1.0 / 0.6 - 0.9 cm IVS Systolic Thickness 1.9 cm LVPW Diastolic Thickness 1.4 cm 0.6 - 1.0 / 0.6 - 0.9 cm LVPW Systolic Thickness 1.9 cm LVOT Diameter 2.0 cm LV Ejection Fraction 2D Teich 53.6 % LV Ejection Fraction MOD 4C 49.5 % LV Ejection Fraction MOD 2C 61.5 % LV Ejection Fraction 2C AL 61.8 % LA Diameter 4.1 cm RA Systolic Volume 4C AL 74.6 ml RA Systolic Volume 4C MOD 71.5 ml LA Sys Volume AL 118.5 cm cubed LA Sys Volume Index AL 57.0 cm cubed/m squared Aorta at Sinotubular Diameter 2.5 cm M-MODE LA Ao Ratio MM 1.2 AV Cusp Separation MM 2.1 cm DOPPLER AV Peak Velocity 129.0 cm/s LVOT Peak Velocity 105.0 cm/s AV Area Cont Eq vti 2.3 cm squared AV Area Cont Eq pk 2.5 cm squared MV Peak Velocity 105.0 cm/s MV Area PHT 4.4 cm squared Mitral E to A Ratio 0.6 TV Peak Velocity 276.0 cm/s TR Peak Velocity 329.5 cm/s TR Peak Gradient 43.4 mmHg TR Mean Velocity 232.0 cm/s TR Mean Gradient 25.9 mmHg TR Velocity Time Integral 109.0 cm TV Peak E Velocity 129.0 cm/s PV Peak Velocity 95.0 cm/s FINDINGS Left Ventricle Left venticle is normal in size. LV systolic function is midly reduced with EF of 40-45%. Mild global hypokinesis. Grade 1 diastolic dysfunction Right Ventricle Normal in size and function. Pacemaker lead seen Right Atrium Dilated Left Atrium Severely dilated Mitral Valve Grossly normal. Mild mitral regurgitation. Aortic Valve Strcuturally noraml aortic valve. No significant stenosis or regurgitation. Tricuspid Valve Mild to moderate tricuspid regurgitation. RVSP is 45-50mmHg. This is consistent with moderate pulmonary hypertension. Pulmonic Valve Trace pulmonic regurgitation Pericardium Normal Aorta Normal in size IVC Not well visualized CONCLUSIONS LV systolic function is mildly reduced with EF of 40-45% Grade 1 diastolic dysfunction Right atrial dilation Severely dilated left atrium Mild mitral regurgitation Mild to moderate tricuspid regurgitation. Moderate pulmonary hypertension Trace pulmonic regurgitation Compared to prior echocardiogram from 2023, LV systolic function appears to be have decreased. Abram Stewart MD (Electronically Signed) Final Date: 19 Oct 2024 21:55 S
== END 2024-10-07 14:19 | disposition home or self-care (01) ==
PROVIDERS: PCP Family Medicine; Visit Provider Internal Medicine
DX: R06.02 Shortness of breath (principal); I50.9 Heart failure, unspecified; R93.1 Abnormal findings on diagnostic imaging of heart and coronary circulation; Z96.89 Presence of other specified functional implants; I34.0 Nonrheumatic mitral (valve) insufficiency; I07.1 Rheumatic tricuspid insufficiency
CPT/HCPCS: 93306